=== PATIENT | female | born 1935 | race Hispanic/Latino ===

== ENCOUNTER 2017-08-06 20:12 | Emergency (ER) | payer OTHER ==
[2017-08-06] MEDS ORDERED: HYDROCODONE/APAP 5/325 MG TAB ONE (22:32)
--- NOTE | 2017-08-06 23:10 | EDPHYS ---
Physician Documentation [facility] Name: Diandra Shepard Age: 82 yrs Sex: Female : 1935 Arrival Date: 08/06/2017 Time: 20:17 Bed 11 Private MD: ED Physician Landry Carter HPI: 08/06 22:00 This 82 yrs old Female presents to ER via Ambulatory with complaints of Left pm1 shoulder pain. 22:00 The patient or guardian complains of decreased range of motion, pain. The complaints pm1 affect the left shoulder. Context: The problem was sustained at home, resulted from unknown cause. Onset: The symptoms/episode began/occurred this morning. Treatment prior to arrival includes: no previous treatment. Modifying factors: The symptoms are alleviated by nothing. the symptoms are aggravated by movement. Associated signs and symptoms: Pertinent positives: decreased range of motion, pain, Pertinent negatives: fever, numbness, swelling, tingling, Chest pain, shortness of breath. Severity of symptoms: in the emergency department the symptoms are unchanged. The patient has not experienced similar symptoms in the past. Historical: - Allergies: 20:46 No Known Allergies; lp1 - Home Meds: 20:46 Unable to obtain [Active]; lp1 - PMHx: 20:46 Hypertension; lp1 - PSHx: 20:46 Appendectomy; Cholecystectomy; lp1 - Immunization history:: Adult Immunizations up to date. - Social history:: Smoking status: Patient/guardian denies using tobacco. ROS: 22:00 Constitutional: Negative for fever, chills, and weight loss, Eyes: Negative for injury, pm1 pain, redness, and discharge, ENT: Negative for injury, pain, and discharge, Neck: Negative for injury, pain, and swelling, Cardiovascular: Negative for chest pain, palpitations, and edema, Respiratory: Negative for shortness of breath, cough, wheezing, and pleuritic chest pain, Abdomen/GI: Negative for abdominal pain, nausea, vomiting, diarrhea, and constipation, Back: Negative for injury and pain. 22:00 Skin: Negative for injury, rash, and discoloration, Neuro: Negative for headache, weakness, numbness, tingling, and seizure. 22:00 MS/extremity: Positive for decreased range of motion, pain, of the left shoulder, Negative for injury or acute deformity. Exam: 22:00 Constitutional: This is a well developed, well nourished patient who is awake, alert, pm1 and in no acute distress. Head/Face: Normocephalic, atraumatic. Neck: Trachea midline, no thyromegaly or masses palpated, and no cervical lymphadenopathy. Supple, full range of motion without nuchal rigidity, or vertebral point tenderness. No Meningismus. Chest/axilla: Normal chest wall appearance and motion. Nontender with no deformity. No lesions are appreciated. Cardiovascular: Regular rate and rhythm with a normal S1 and S2. No gallops, murmurs, or rubs. Normal PMI, no JVD. No pulse deficits. Respiratory: Lungs have equal breath sounds bilaterally, clear to auscultation and percussion. No rales, rhonchi or wheezes noted. No increased work of breathing, no retractions or nasal flaring. Abdomen/GI: Soft, non-tender, with normal bowel sounds. No distension or tympany. No guarding or rebound. No evidence of tenderness throughout. Back: No spinal tenderness. No costovertebral tenderness. Full range of motion. Skin: Warm, dry with normal turgor. Normal color with no rashes, no lesions, and no evidence of cellulitis. 22:00 Musculoskeletal/extremity: Extremities: grossly normal except: noted in the left shoulder: Patient with painful range of motion of left arm above shoulder level, Circulation is intact in all extremities. Sensation intact. Vital Signs: 20:45 BP 150 / 74; Pulse 66; Resp 18; Temp 97.3(TE); Pulse Ox 96% on R/A; Weight 82.1 kg; lp1 Height 4 ft. 11 in. (149.86 cm); Pain 9/10; 23:17 BP 133 / 74; Pulse 82; Resp 16; Pulse Ox 100% on R/A; Pain 0/10; bs1 20:45 Body Mass Index 36.56 (82.10 kg, 149.86 cm) lp1 MDM: 21:18 Patient medically screened. pm1 23:04 Data reviewed: vital signs. Data interpreted: Pulse oximetry: on room air is 98 %. pm1 Interpretation: normal. Counseling: I had a detailed discussion with the patient and/or guardian regarding: the historical points, exam findings, and any diagnostic results supporting the discharge/admit diagnosis, radiology results, the need for outpatient follow up, for definitive care, a orthopedic surgeon, to return to the emergency department if symptoms worsen or persist or if there are any questions or concerns that arise at home. 08/06 21:27 Order name: Shoulder Left (2 View) XRAY pm1 08/06 21:56 Order name: Sling; Complete Time: 22:42 pm1 Administered Medications: 22:42 Not Given (Patient Refused; SPOUT TENDER notified, no further orders): [place] 5 mg-325 mg 1 tabs bs1 PO once Disposition: 08/07 10:00 Co-signature as Attending Physician, Landry Carter MD. rn Disposition: 08/06/17 23:09 Discharged to Home. Impression: Pain in left shoulder - possibly bursitis of left shoulder. - Condition is Stable. - Discharge Instructions: Bursitis, Shoulder Pain, Arm Sling Use, [id number]. - Medication Reconciliation Form, Thank You Letter form. - Follow up: Emergency Department; When: As needed; Reason: Worsening of condition. Follow up: Private Physician; When: 2 - 3 days; Reason: Recheck today's complaints, Continuance of care, Re-evaluation by your physician. Follow up: Abraham Knight MD; When: 2 - 3 days; Reason: Recheck today's complaints, Continuance of care, Re-evaluation by your physician. - Problem is new. - Symptoms have improved. Signatures: Dispatcher [employer] EDMS Landry Carter MD MD rn Pena, Laura, RN RN lp1 Mukesh Yancey, SPOUT TENDER SPOUT TENDER pm1 Edna Larson, RN RN bs1
--- NOTE | 2017-08-06 23:10 | ER ---
Nurse's Notes [facility] Name: Diandra Shepard Age: 82 yrs Sex: Female : 1935 Arrival Date: 08/06/2017 Time: 20:17 Bed 11 Private MD: Diagnosis: Pain in left shoulder-possibly bursitis of left shoulder Presentation: 08/06 20:44 Presenting complaint: Patient states: Pain to left shoulder that began this AM, worse lp1 now; Denies any injury to left shoulder; limited ROM. Transition of care: patient was not received from another setting of care. Onset of symptoms was August 06, 2017. Care prior to arrival: None. 20:44 Method Of Arrival: Ambulatory lp1 20:44 Acuity: VANESSA 4 lp1 Historical: - Allergies: 20:46 No Known Allergies; lp1 - Home Meds: 20:46 Unable to obtain [Active]; lp1 - PMHx: 20:46 Hypertension; lp1 - PSHx: 20:46 Appendectomy; Cholecystectomy; lp1 - Immunization history:: Adult Immunizations up to date. - Social history:: Smoking status: Patient/guardian denies using tobacco. Screenin:47 Abuse screen: Denies threats or abuse. Denies injuries from another. Nutritional lp1 screening: No deficits noted. Tuberculosis screening: No symptoms or risk factors identified. Fall Risk None identified. Assessment: 21:36 General: Appears in no apparent distress. uncomfortable, Behavior is calm, cooperative, bs1 appropriate for age. Pain: Complains of pain in left shoulder Pain does not radiate. Pain currently is 0 out of 10 on a pain scale. Quality of pain is described as aching, throbbing, Pain began 2-3 days ago. Neuro: Level of Consciousness is awake, alert, obeys commands, Oriented to person, place, time, situation, Appropriate for age. Cardiovascular: Denies chest pain, palpitations, shortness of breath, Heart tones S1 S2 present Capillary refill < 3 seconds Patient's skin is warm and dry. Respiratory: Airway is patent Trachea midline Respiratory effort is even, unlabored, Respiratory pattern is regular, symmetrical, Breath sounds are clear bilaterally. GI: No deficits noted. : No deficits noted. EENT: No deficits noted. Derm: No deficits noted. Musculoskeletal: Circulation, motion, and sensation intact. Capillary refill < 3 seconds, Range of motion: limited in left shoulder Reports pain in left shoulder patient only reports pain upon movement, no pain noted at this time. no apparent distress. Patient denies falls or injury to affected arm. 22:43 Reassessment: No changes from previously documented assessment. Patient and/or family bs1 updated on plan of care and expected duration. Pain level reassessed. Patient is alert, oriented x 3, equal unlabored respirations, skin warm/dry/pink. Sling applied to left arm/shoulder. Vital Signs: 20:45 BP 150 / 74; Pulse 66; Resp 18; Temp 97.3(TE); Pulse Ox 96% on R/A; Weight 82.1 kg; lp1 Height 4 ft. 11 in. (149.86 cm); Pain 9/10; 23:17 BP 133 / 74; Pulse 82; Resp 16; Pulse Ox 100% on R/A; Pain 0/10; bs1 20:45 Body Mass Index 36.56 (82.10 kg, 149.86 cm) lp1 ED Course: 20:17 Patient arrived in ED. lp1 20:45 Triage completed. lp1 20:45 Arm band placed on right wrist. lp1 20:47 Patient has correct armband on for positive identification. lp1 21:13 Mukesh Yancey NP is PHCP. pm1 21:13 Landry Carter MD is Attending Physician. pm1 21:36 Edna Larson RN is Primary Nurse. bs1 21:45 X-ray completed. Portable x-ray completed in exam room. Patient tolerated procedure kc2 well. 22:43 No provider procedures requiring assistance completed. Patient did not have IV access bs1 during this emergency room visit. 23:07 Abraham Knight MD is Referral Physician. pm1 Administered Medications: 22:42 Not Given (Patient Refused; TOXICOLOGY TEACHER notified, no further orders): [place] 5 mg-325 mg 1 tabs bs1 PO once Outcome: 23:09 Discharge ordered by . pm1 23:18 Discharged to home ambulatory. bs1 23:18 Condition: stable 23:18 Discharge instructions given to patient, family, Instructed on discharge instructions, follow up and referral plans. Demonstrated understanding of instructions, follow-up care. 23:18 Patient left the ED. bs1 Signatures: Em Moran RN RN lp1 Mukesh Yancey NP TOXICOLOGY TEACHER pm1 Марина Hobbs kc2 Edna Larson RN RN bs1 Corrections: (The following items were deleted from the chart) 21:39 21:36 Musculoskeletal: Circulation, motion, and sensation intact. Capillary refill < 3 bs1 seconds, Range of motion: limited in left shoulder Reports pain in left shoulder patient only reports pain upon movement, no pain noted at this time. no apparent distress. bs1
[2017-08-06 23:22] VITALS: TEMP 97.3
[2017-08-06 23:31] VITALS: BP 133/74; O2SAT 100
--- NOTE | 2017-08-07 08:11 | RAD REPORT ---
EXAM DESCRIPTION: RAD - Shoulder Left 2 View - 08/06/2017 9:55 pm CLINICAL HISTORY: Onset nontraumatic left shoulder pain, decreased range of motion COMPARISON: None. TECHNIQUE: Internal and external rotation views of the left shoulder were obtained. FINDINGS: There is no fracture or dislocation. AC joint degenerative changes are present with small inferiorly directed clavicle and acromion spurs. Acromial humeral joint space is narrowed slightly. T here degenerative changes along the undersurface of the acromion. No abnormal calcifications of the s oft tissues. Degenerative changes are seen along the superior margin of the greater tuberosity near t endon insertion. Ribs and parenchyma of the upper chest unremarkable. IMPRESSION: Negative two-view left shoulder examination for acute finding. AC joint and acromion degenerative change. Concerns for rotator cuff tear or soft tissue abnormality can be addressed with MR imaging.
== END 2017-08-06 23:18 | disposition home or self-care (01) ==
LOC: ER 20:12
DX: M25.512 Pain in left shoulder (principal); I10 Essential (primary) hypertension; X58.XXXA Exposure to other specified factors, initial encounter; Y92.009 Unspecified place in unspecified non-institutional (private) residence as the place of occurrence of the external cause
CPT/HCPCS: 99281

== ENCOUNTER 2018-01-02 09:50 | Observation (INO) | payer OTHER ==
--- NOTE | 2018-01-02 10:44 | EKG ---
Test Date: 2018-01-02 Test Time: 10:28:27 Senior Information Security Analyst: GUTIERREZ/Tom MEASUREMENT RESULTS: Intervals: Rate: 50 DC: 172 QRSD: 96 QT: 448 QTc: 408 [place]: P: 35 DC: 172 QRS: -26 T: 132 INTERPRETIVE STATEMENTS: Sinus bradycardia with sinus arrhythmia ST & T wave abnormality, consider anterolateral ischemia Abnormal ECG Compared to ECG 09/14/2006 18:27:40 ST (T wave) deviation now present Sinus rhythm no longer present Left-axis deviation no longer present Electronically Signed On 01-02-18 10:43:27 CDT by Pramod Lundberg
[2018-01-02] MEDS ORDERED: ASPIRIN 81 MG CHEWABLE TABLET ONE (10:55)
[2018-01-02 11:03] LABS: Urine Blood 1+ (NEG); Urine Glucose NEGATIVE (NEG); Urine Protein NEGATIVE (NEG)
[2018-01-02 11:12] LABS: Absolute Lymphocytes (CBC) 2.1 K/uL (0.7-4.9); Absolute Monocytes 0.6 K/uL (0.1-1.3); Absolute Neutrophil 3.7 K/uL (1.8-8.0); Basophils % 0.6 % (0-1.3); Eosinophils % 2.4 % (0-4.4); Hematocrit 38.6 % (36.0-45.0); Lymphocytes % 31.8 % (15.3-44.8); MCH 30.4 pg (27.0-35.0); MPV 10.2 fL (7.6-11.3); Monocytes % 8.7 % (3.3-12.3); Protime INR 2.26; RBC Red Blood Cell Count 4.25 M/uL (3.86-4.86)
--- NOTE | 2018-01-02 11:30 | RAD REPORT ---
EXAM DESCRIPTION: RAD - Chest Single View - 01/02/2018 11:23 am CLINICAL HISTORY: CHEST PAIN Chest pain. COMPARISON: Chest Pa And Lat (2 Views) dated 04/10/2017; Thorax Wo Con dated 12/20/2017 FINDINGS: Portable technique limits examination quality. The lungs are grossly clear. The heart is mildly enlarged in size. No displaced fractures. IMPRESSION: No acute intrathoracic process suspected.
[2018-01-02 11:32] LABS: Albumin 3.7 g/dL (3.4-5.0); Bilirubin Direct 0.1 mg/dL (0-0.2); Bilirubin Total 0.5 mg/dL (0.2-1.0); Magnesium 2.1 mg/dL (1.8-2.4); Potassium 4.6 mmol/L (3.5-5.1); Protein, Total 7.8 g/dL (6.4-8.2)
--- NOTE | 2018-01-02 11:45 | ER ---
Nurse's Notes [facility] Name: Diandra Shepard Age: 82 yrs Sex: Female : 1935 Arrival Date: 01/02/2018 Time: 09:52 Bed 8 Private MD: Rikki Singh E Diagnosis: Chest pain, unspecified;Abnormal electrocardiogram [ECG] [EKG] Presentation: 01/02 10:01 Presenting complaint: Patient states: CP that started 0900, reports that the CP has sg gone away but now the left ear and jaw are still hurting described as pulling and tugging. Transition of care: patient was not received from another setting of care. Onset of symptoms was January 02, 2018. Risk Assessment: Do you want to hurt yourself or someone else? Patient reports no desire to harm self or others. Initial Sepsis Screen: Does the patient meet any 2 criteria? No. Patient's initial sepsis screen is negative. Does the patient have a suspected source of infection? No. Patient's initial sepsis screen is negative. Care prior to arrival: None. 10:01 Method Of Arrival: Ambulatory sg 10:01 Acuity: VANESSA 3 sg Historical: - Allergies: 10:04 Levaquin; sg 10:04 Tylenol; sg 10:04 Codeine; sg - PMHx: 10:04 Hypertension; sg - PSHx: 10:04 Appendectomy; Cholecystectomy; sg - Immunization history:: Adult Immunizations up to date. - Social history:: Smoking status: Patient/guardian denies using tobacco. - Ebola Screening: : No symptoms or risks identified at this time. Screenin:00 Abuse screen: Denies threats or abuse. Denies injuries from another. hb 10:00 Nutritional screening: No deficits noted. Tuberculosis screening: No symptoms or risk hb factors identified. Fall Risk None identified. Assessment: 10:00 General: Appears in no apparent distress. Behavior is calm, cooperative. Pain: hb Complains of pain in chest Pain radiates to left jaw and ear Pain currently is 3 out of 10 on a pain scale. Neuro: Level of Consciousness is awake, alert, obeys commands, Oriented to person, place, time, situation, Pupils are PERRLA. Cardiovascular: Reports chest pain, Heart tones S1 S2 present Capillary refill < 3 seconds Patient's skin is warm and dry. Respiratory: Airway is patent Trachea midline Respiratory effort is even, unlabored, Respiratory pattern is regular, symmetrical, Breath sounds are clear bilaterally. GI: No signs and/or symptoms were reported involving the gastrointestinal system. : No signs and/or symptoms were reported regarding the genitourinary system. EENT: Reports pain in left ear. Derm: Skin is intact, is healthy with good turgor, Skin is pink, warm \T\ dry. Musculoskeletal: No signs and/or symptoms reported regarding the musculoskeletal system. 11:00 Reassessment: Patient appears in no apparent distress at this time. No changes from hb previously documented assessment. Patient and/or family updated on plan of care and expected duration. Pain level reassessed. Patient is alert, oriented x 3, equal unlabored respirations, skin warm/dry/pink. Vital Signs: 10:02 Resp 17; Temp 98.1; Pulse Ox 100% on R/A; sg 10:03 BP 143 / 67; sg 11:01 BP 162 / 77; Pulse 51; Resp 16; Pulse Ox 100% on R/A; dh3 11:48 BP 125 / 52; Pulse 49; Resp 18; Pulse Ox 96% ; sv 12:59 BP 150 / 69; Pulse 53; Resp 18; sv ED Course: 09:52 Patient arrived in ED. sb2 09:53 Rikki Singh MD is Private Physician. sb2 09:59 Feng Echols PA is [facility]. jr8 09:59 Bridger Blanchard MD is Attending Physician. jr8 10:00 Patient has correct armband on for positive identification. Placed in gown. Bed in low hb position. Call light in reach. Side rails up X 1. monitoring and evaluation advisor on. Pulse ox on. NIBP on. 10:02 Triage completed. sg 10:02 Arm band placed on. sg 10:07 Shae Hall, KIAN is Primary Nurse. hb 10:47 EKG done, by senior technical recruiter. reviewed by Feng STALEY. at1 10:55 Inserted saline lock: 20 gauge in left antecubital area, using aseptic technique. Blood cc3 collected. 11:21 X-ray completed. Portable x-ray completed in exam room. Patient tolerated procedure jb2 well. 11:23 XRAY Chest (1 view) In Process Unspecified. EDMS 11:44 Leonor Patel MD is Hospitalizing Provider. jr8 13:06 No provider procedures requiring assistance completed. Patient admitted, IV remains in sv place. intact. Administered Medications: 10:56 Drug: Aspirin Chewable Tablet 324 mg Route: PO; hb Outcome: 11:44 Decision to Hospitalize by Provider. jr8 13:06 Admitted to Tele accompanied by tech, via wheelchair, room 206, with chart, Report sv called to Daria LANGSTON 13:06 Condition: stable 13:06 Instructed on the need for admit. 13:22 Patient left the ED. sv Signatures: Dispatcher [employer] Leola Foote, RN RN Rhys Maya RN RN Ameya Akbar Josh, PA PA jr8 Madhavi flynn, software design analyst EKG Tat1 Shae Hall RN RN Jeannette Kirkland 3 Ellie Keenan sb2 Sari Pro cc3
--- NOTE | 2018-01-02 11:45 | EDPHYS ---
Physician Documentation [facility] Name: Diandra Shepard Age: 82 yrs Sex: Female : 1935 Arrival Date: 01/02/2018 Time: 09:52 Bed 8 Private MD: Rikki Singh E ED Physician Bridger Blanchard HPI: 01/02 10:40 This 82 yrs old Female presents to ER via Ambulatory with complaints of Chest jr8 pain with radiation to jaw. 10:40 The patient or guardian reports chest pain that is located primarily in the anterior jr8 chest wall, left. Onset: acutely, last night. The pain radiates to left neck, left jaw. Associated signs and symptoms: The patient has no apparent associated signs or symptoms. The chest pain is described as stabbing. Duration: The patient or guardian reports a single episode, that is now resolved, lasted for several hours . Modifying factors: The symptoms are alleviated by nothing. the symptoms are aggravated by nothing. Severity of pain: At its worst the pain was moderate in the emergency department the pain is unchanged. The patient has not experienced similar symptoms in the past. The patient has not recently seen a physician. Historical: - Allergies: 10:04 Levaquin; sg 10:04 Tylenol; sg 10:04 Codeine; sg - PMHx: 10:04 Hypertension; sg - PSHx: 10:04 Appendectomy; Cholecystectomy; sg - Immunization history:: Adult Immunizations up to date. - Social history:: Smoking status: Patient/guardian denies using tobacco. - Ebola Screening: : No symptoms or risks identified at this time. ROS: 10:40 Eyes: Negative for injury, pain, redness, and discharge, ENT: Negative for injury, jr8 pain, and discharge, Neck: Negative for injury, pain, and swelling, Respiratory: Negative for shortness of breath, cough, wheezing, and pleuritic chest pain, Abdomen/GI: Negative for abdominal pain, nausea, vomiting, diarrhea, and constipation, Back: Negative for injury and pain, MS/Extremity: Negative for injury and deformity, Skin: Negative for injury, rash, and discoloration, Neuro: Negative for headache, weakness, numbness, tingling, and seizure. 10:40 Cardiovascular: Positive for chest pain, Negative for edema, orthopnea, palpitations, paroxysmal nocturnal dyspnea. Exam: 10:40 Eyes: Pupils equal round and reactive to light, extra-ocular motions intact. Lids and jr8 lashes normal. Conjunctiva and sclera are non-icteric and not injected. Cornea within normal limits. Periorbital areas with no swelling, redness, or edema. ENT: Nares patent. No nasal discharge, no septal abnormalities noted. Tympanic membranes are normal and external auditory canals are clear. Oropharynx with no redness, swelling, or masses, exudates, or evidence of obstruction, uvula midline. Mucous membranes moist. Neck: Trachea midline, no thyromegaly or masses palpated, and no cervical lymphadenopathy. Supple, full range of motion without nuchal rigidity, or vertebral point tenderness. No Meningismus. Cardiovascular: Regular rate and rhythm with a normal S1 and S2. No gallops, murmurs, or rubs. Normal PMI, no JVD. No pulse deficits. Respiratory: Lungs have equal breath sounds bilaterally, clear to auscultation and percussion. No rales, rhonchi or wheezes noted. No increased work of breathing, no retractions or nasal flaring. Abdomen/GI: Soft, non-tender, with normal bowel sounds. No distension or tympany. No guarding or rebound. No evidence of tenderness throughout. Back: No spinal tenderness. No costovertebral tenderness. Full range of motion. Skin: Warm, dry with normal turgor. Normal color with no rashes, no lesions, and no evidence of cellulitis. MS/ Extremity: Pulses equal, no cyanosis. Neurovascular intact. Full, normal range of motion. Neuro: Awake and alert, GCS 15, oriented to person, place, time, and situation. Cranial nerves II-XII grossly intact. Motor strength 5/5 in all extremities. Sensory grossly intact. Cerebellar exam normal. Normal gait. 11:46 ECG was reviewed by the Attending Physician. jr8 Vital Signs: 10:02 Resp 17; Temp 98.1; Pulse Ox 100% on R/A; sg 10:03 BP 143 / 67; sg 11:01 BP 162 / 77; Pulse 51; Resp 16; Pulse Ox 100% on R/A; dh3 11:48 BP 125 / 52; Pulse 49; Resp 18; Pulse Ox 96% ; sv 12:59 BP 150 / 69; Pulse 53; Resp 18; sv MDM: 10:19 Patient medically screened. jr8 11:43 HEART Score: ECG: Non specific repolarization disturbance / LBTB / PM (1), Age: > or = jr8 65 years (2), Risk Factors: 1 or 2 risk factors (1), [Hypertension] [Obesity] Troponin: < or = 1 x Normal Limit (0). The patient was given aspirin in the Emergency Department. Data reviewed: vital signs, nurses notes, lab test result(s), EKG, radiologic studies, plain films, and as a result, I will admit patient. Data interpreted: Pulse oximetry: on room air is 100 %. Interpretation: normal. Counseling: I had a detailed discussion with the patient and/or guardian regarding: the historical points, exam findings, and any diagnostic results supporting the discharge/admit diagnosis, lab results, radiology results, the need for further work-up and treatment in the hospital. Physician consultation: Leonor Patel MD was called at 11:43, was contacted at 11:43, regarding admission, to the telemetry unit. consult, patient's condition, and will see patient. 01/02 10:34 Order name: Basic Metabolic Panel; Complete Time: 11:36 01/02 10:34 Order name: CBC with Diff; Complete Time: 11:14 01/02 10:34 Order name: LFT's; Complete Time: 11:36 01/02 10:34 Order name: Magnesium; Complete Time: 11:36 01/02 10:34 Order name: NT PRO-BNP; Complete Time: 11:36 01/02 10:34 Order name: PT-INR; Complete Time: 11:13 01/02 10:34 Order name: Troponin (emerg Dept Use Only); Complete Time: 11:36 01/02 10:34 Order name: XRAY Chest (1 view); Complete Time: 11:36 01/02 10:34 Order name: EKG; Complete Time: 10:35 01/02 10:34 Order name: Cardiac monitoring; Complete Time: 12:10 01/02 10:34 Order name: EKG - Nurse/Tech; Complete Time: 12:10 01/02 10:51 Order name: Urine Dipstick--Ancillary (enter results); Complete Time: 11:05 mb4 01/02 12:12 Order name: Diet Heart Healthy; Complete Time: 12:12 hb 01/02 10:34 Order name: IV Saline Lock; Complete Time: 12:10 jr8 01/02 10:34 Order name: Labs collected and sent; Complete Time: 12:10 jr8 01/02 10:34 Order name: O2 Per Protocol; Complete Time: 12:10 jr8 01/02 10:34 Order name: O2 Sat Monitoring; Complete Time: 12:10 jr8 EC:46 Rate is 50 beats/min. Rhythm is regular, Sinus bradycardia. ME interval is normal at jr8 172 msec. QRS interval is normal at 96 msec. QT interval is normal at 408 msec. No Q waves. T waves are Inverted in leads I, aVL, V2, V3, V4, V5, V6. No ST changes noted. Clinical impression: NSR w/ Non-specific ST/T Changes. Interpreted by me. Reviewed by me. Administered Medications: 10:56 Drug: Aspirin Chewable Tablet 324 mg Route: PO; hb Disposition: 14:46 Co-signature as Attending Physician, Bridger Blanchard MD I agree with the assessment and kdr plan of care. Disposition: 01/02/18 11:44 Hospitalization ordered by Leonor Patel for Observation. Preliminary diagnosis are Chest pain, unspecified, Abnormal electrocardiogram [ECG] [EKG]. - Bed requested for Telemetry/MedSurg (observation). - Status is Observation. sv - Condition is Stable. - Problem is new. - Symptoms have improved. UTI on Admission? No Signatures: Dispatcher [employer] [facility] Leola Johnston RN RN sv Woody, Diana, RN RN Rhys Maya RN RN Bridger Blanchard MD MD [facility] Feng Echols PA PA jr8 Shae Hall, RN KIAN Corrections: (The following items were deleted from the chart) 11:44 11:44 Hospitalization Ordered by Leonor Patel MD for Observation. Preliminary jr8 diagnosis is Chest pain, unspecified. Bed requested for Telemetry/MedSurg (observation). Status is Observation. Condition is Stable. Problem is new. Symptoms have improved. UTI on Admission? No. jr8 12:58 11:44 01/02/2018 11:44 Hospitalization Ordered by Leonor Patel MD for Observation. dw Preliminary diagnosis is Chest pain, unspecified; Abnormal electrocardiogram [ECG] [EKG]. Bed requested for Telemetry/MedSurg (observation). Status is Observation. Condition is Stable. Problem is new. Symptoms have improved. UTI on Admission? No. jr8 13:22 12:58 01/02/2018 11:44 Hospitalization Ordered by Leonor Patel MD for Observation. sv Preliminary diagnosis is Chest pain, unspecified; Abnormal electrocardiogram [ECG] [EKG]. Bed requested for Telemetry/MedSurg (observation). Status is Observation. Condition is Stable. Problem is new. Symptoms have improved. UTI on Admission? No. dw
[2018-01-02] MEDS ORDERED: ACETAMINOPHEN 500 MG TAB PO PRN (14:00)
[2018-01-02] MEDS ORDERED: ONDANSETRON 4 MG/2 ML VIAL IV PRN (14:00)
[2018-01-02 14:06] VITALS: BMI 51.7
--- NOTE | 2018-01-02 15:26 | P.HP ---
Certification for Inpatient Patient admitted to: Observation With expected LOS: <2 Midnights Patient will require the following post-hospital care: None Practitioner: I am a practitioner with admitting privileges, knowledge of patient current condition, hospital course, and medical plan of care. Services: Services provided to patient in accordance with Admission requirements found in Title 42 Section 412.3 of the Code of Federal Regulations Patient History Date of Service: 01/02/18 Primary Care Provider: Dr Mooney - Cardiology Reason for admission: Chest pain History of Present Illness: 82 y/o F with h/o of HTN presented to the ED with Chest pain that started last night at 9 pm while she was laying down. Chest pain radiated down her left arm and she was also having some jaw pain. Pt thus decided to come to the ER. Pain is dull in nature and located on the left side. No SOB, N or vomitted noted. Has been seen by Dr Mooney outside. Has had Stress test in the past 2years ago and was negative. In the Er Troponin x 1 negative. EKG with no changes. Chest Pain free. Admitted to R/o ACS Allergies levofloxacin [From Levaquin] Allergy (Verified 07/16/17 10:29) unknown acetaminophen [From Tylenol-Codeine #3] Adverse Reaction (Verified 07/16/17 10: 29) bone pain codeine [From Tylenol-Codeine #3] Adverse Reaction (Verified 07/16/17 10:29) bone pain No Known Allergie Allergy (Uncoded 08/06/17 23:22) Unknown Home Medications: Albuterol Inhaler [Ventolin Inhaler] 2 puff IH Q6H PRN 01/02/18 Alprazolam [Xanax] 0.5 mg PO QID PRN 01/02/18 Atorvastatin Calcium 10 mg PO BEDTIME 01/02/18 Gabapentin [Neurontin] 100 mg PO BID 01/02/18 Isosorbide Mononitrate [Isosorbide Mononitrate ER] 30 mg PO BEDTIME 01/02/18 Lisinopril/Hydrochlorothiazide [Lisinopril-Hctz 20-12.5 mg Tab] 1 tab PO BID Meclizine HCl 12.5 mg PO DAILY PRN 01/02/18 Metoprolol Tartrate [Lopressor] 50 mg PO BID 01/02/18 - Past Medical/Surgical History Has patient received pneumonia vaccine in the past: Yes Diabetic: No -: High blood -: Cataract sx, LAsik Sx, - Social History Smoking Status: Never smoker Alcohol use: No CD- Drugs: No Caffeine use: Yes Place of Residence: Home Review of Systems General: As per HPI Physical Examination - Vital Signs Temperature: 98.1 F Blood Pressure: 150/69 Pulse: 53 Respirations: 18 - Physical Exam General: Alert, In no apparent distress HEENT: Atraumatic, PERRLA, Mucous membr. moist/pink, EOMI, Sclerae nonicteric Neck: Supple, 2+ carotid pulse no bruit, No LAD, Without JVD or thyroid abnormality Respiratory: Clear to auscultation bilaterally, Normal air movement Cardiovascular: Regular rate/rhythm, Normal S1 S2 Gastrointestinal: Normal bowel sounds, No tenderness Musculoskeletal: No tenderness Integumentary: No rashes Neurological: Normal gait, Normal speech, Normal strength at 5/5 x4 extr, Normal tone, Normal affect Lymphatics: No axilla or inguinal lymphadenopathy - Studies Laboratory Data (last 24 hrs) 01/02/18 10:55: PT 26.9 H, INR 2.26 01/02/18 10:55: WBC 6.6, Hgb 12.9, Hct 38.6, Plt Count 188 01/02/18 10:55: Sodium 142, Potassium 4.6, BUN 18, Creatinine 0.80, Glucose 121 H, Magnesium 2.1, Total Bilirubin 0.5, AST 24, ALT 31, Alkaline Phosphatase 51 Assessment and Plan - Problems (Diagnosis) (1) Chest pain Current Visit: Yes Status: Acute Plan: Atypical Chest Pain -Troponin x 2 and EKG -ECHO and Stress test tiburcio AM -Cardiology consulted. Awaiting Reccs -ACS medication Qualifiers: Chest pain type: unspecified Qualified Code(s): R07.9 - Chest pain, unspecified (2) HTN (hypertension) Current Visit: Yes Status: Chronic Plan: Restart Home medication Qualifiers: Hypertension type: essential hypertension Qualified Code(s): I10 - Essential (primary) hypertension Discharge Plan: Home Plan to discharge in: 24 Hours - Advance Directives Does patient have a Living Will: No Does patient have a Durable POA for Healthcare: No - Code Status/Comfort Care Code Status Assessed: Yes Critical Care: No
--- NOTE | 2018-01-02 15:43 | ECHO ---
HEIGHT: 4 ft 2 in WEIGHT: 184 lb 0 oz DATE OF STUDY: 01/02/[address]: Leonor Patel MD 2-DIMENSIONAL: YES M.MODE: YES DOPPLER: YES COLOR FLOW: YES TDS: NO PORTABLE: NO DEFINITY: NO BUBBLE STUDY: NO DIAGNOSIS: CHEST PAIN CARDIAC HISTORY: CATHERIZATION: NO SURGERY: NO PROSTHETIC VALVE: NO PACEMAKER: NO MEASUREMENTS (cm) DIASTOLIC (NORMALS) SYSTOLIC (NORMALS) IVSd 1.2 (0.6-1.2) LA Diam 3.6 (1.9-4.0) LVEF 78% LVIDd 4.3 (3.5-5.7) LVIDs 2.3 (2.0-3.5) %FS 47% LVPWd 1.2 (0.6-1.2) Ao Diam 3.1 (2.0-3.7) 2 DIMENSIONAL ASSESSMENT: RIGHT ATRIUM: NORMAL LEFT ATRIUM: NORMAL RIGHT VENTRICLE: NORMAL LEFT VENTRICLE: NORMAL TRICUSPID VALVE: NORMAL MITRAL VALVE: NORMAL PULMONIC VALVE: NORMAL AORTIC VALVE: NORMAL PERICARDIAL EFFUSION: NONE AORTIC ROOT: NORMAL LEFT VENTRICULAR WALL MOTION: NORMAL DOPPLER/COLOR FLOW: MILD TRICUSPID REGURGITATION. NORMAL RIGHT VENTRICULAR SYSTOLIC PRESSURE. COMMENTS: NORMAL 2D ECHOCARDIOGRAM. MILD TRICUSPID REGURGITATION. TECHNOLOGIST: Augustina HARRY
[2018-01-02] MEDS ORDERED: ENOXAPARIN 40 MG/0.4 ML SQ SCH (17:00)
--- NOTE | 2018-01-02 20:00 | RAD REPORT ---
EXAM DESCRIPTION: PHILIPPE - CP - 01/02/2018 7:43 pm CLINICAL HISTORY: Neck pain COMPARISON: None TECHNIQUE: Real-time sonographic evaluation of both carotid systems was performed. Doppler interroga tion was performed with waveform tracing bilaterally. FINDINGS: Normal high resistance waveforms are noted in both external carotid arteries. The common c arotid arteries and internal carotid arteries show normal low resistance waveforms. No finding suspic ious for carotid dissection. Moderate hard plaque is seen in both carotid bulbs. Mild elevation of left ICA velocity is 157 cm/sec ond with elevated left ICA to CCA ratio of 2.1 noted. This would be compatible with a moderate stenos is. No hemodynamically significant stenosis seen on the right. Antegrade flow seen in both vertebral arteries. IMPRESSION: Moderate hard plaque in both carotid bulbs. 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
[2018-01-02] MEDS ORDERED: ATORVASTATIN 40 MG TAB PO SCH (21:00)
--- NOTE | 2018-01-02 22:16 | CON ---
CARDIOLOGY CONSULT Identification: An 82-year-old woman. Chief Complaint: Pain in the left side of her neck. History Of Present Illness: Ms. Shepard is a woman who has had numerous evaluations for vascular di sease before including a cardiac cath in June 2017, that showed mild plaque, no significant CAD. No stents were done. Today, she has had an echocardiogram which shows normal ejection fraction and wall motion. The pain she has on the left side of the neck goes to a point in the jaw, it tends to c ome and go in waves, that lasts 5-10 seconds or so. She has never had a stroke or myocardial infarct ion. We do not have any carotid Dopplers done here or MRIs of the brain. Physical Examination: Vital Signs: 4 feet 2, 184 pounds, body mass index 51. HEENT: Unremarkable. Lungs: Clear. Heart: Within normal limits. There is no tenderness in the area that she reported pain. Her electr ocardiogram done today is sinus bradycardia; there is no infarction, injury, or ischemia. Laboratory Data: Reveals normal hemoglobin, hematocrit; normal complete blood count; normal cardiac enzymes. Impression: The patient could potentially have a dissection of the carotid, no physical findings to support that. We will do a carotid Doppler and if that looks normal, any other workup for the pain she is having could be done as an out patient. MARIO Voice ID: [id number] Report ID: [id number]
[2018-01-03 01:28] VITALS: O2SAT 97
[2018-01-03 05:21] LABS: Absolute Monocytes 0.6 K/uL (0.1-1.3); Absolute Neutrophil 3.3 K/uL (1.8-8.0); Basophils % 0.5 % (0-1.3); Eosinophils % 2.8 % (0-4.4); Hematocrit 37.6 % (36.0-45.0); MCH 30.8 pg (27.0-35.0); MCV 90.2 fL (80-100); MPV 10.4 fL (7.6-11.3); Monocytes % 9.3 % (3.3-12.3); RBC Red Blood Cell Count 4.17 M/uL (3.86-4.86)
[2018-01-03 05:58] LABS: Albumin 3.4 g/dL (3.4-5.0); Bilirubin Total 0.5 mg/dL (0.2-1.0); Phosphorus 3.8 mg/dL (2.5-4.9); Potassium 3.7 mmol/L (3.5-5.1); Protein, Total 7.2 g/dL (6.4-8.2)
[2018-01-03] MEDS ORDERED: METOPROLOL XL 25 MG TAB PO SCH (06:00)
[2018-01-03] MEDS ORDERED: REGADENOSON 0.4 MG/5 ML SYR IV ONE (08:04)
[2018-01-03] MEDS ORDERED: POTASSIUM 25 MEQ EFFERV TAB PO ONE (09:00)
[2018-01-03] MEDS ORDERED: ASPIRIN EC 81 MG TAB PO SCH (09:00)
[2018-01-03 09:12] VITALS: BP 160/74; TEMP 97.1
--- NOTE | 2018-01-03 10:06 | TREADPHA ---
DX: CHEST PAIN Date of Study: 01/03/2018 Ht: 4 2 Wt: 184 lb 0 oz Consulting Physician: ANDREEA MEDICATIONS: TYLENOL, ASPIRIN, LOVENOX, TOPROL, ZOFRAN, K-LYTE HISTORY: 82 YEAR OLD FEMALE HERE FOR CHEST PAIN. HISTORY OF HYEPRTENSION. PHYSICIAL EXAMINATION: SINUS BRADYCARDIA. NON-SPECIFIC ST & T WAVE ABNORMALITY RESTING B.P.: 124/68 RESTING H.R.: 56 RESTING EKG: SINUS BRADYCARDIA. NON-SPECIFIC ST & T WAVE ABNORMALITY PROTOCOL: LEXISCAN EXERCISE TIME: 3:30 B.P. AT [place] STRESS: 140/68 IMPRESSION: LEXISCAN STRESS TEST PERFORMED. CARDIOLITE INJECTED PER PROTOCOL. NO PREMATURE VENTRICULAR COMPLEXES NOTED. DENIES ANY CHEST PAIN. SEE NUCLEAR MEDICINE REPORT. NON-DIAGNOSTIC ELECTOCARDIOGRAM WITH LEXISCAN STRESS.
--- NOTE | 2018-01-03 10:37 | RAD REPORT ---
EXAM DESCRIPTION: NM - Rest Stress Cardiac Imaging - 01/03/2018 10:27 am CLINICAL HISTORY: Chest pain COMPARISON: None. TECHNIQUE: The patient was administered 10.8 mCi of Tc 99m Sestamibi prior to resting SPECT imaging of the heart. The patient was then administered 31.9 mCi of Tc 99m Sestamibi following exercise or ph armacologic stress. Multiplanar SPECT images were reviewed. FINDINGS: The end diastolic volume is 71 ml, the end systolic volume is 23 ml, and the ejection frac tion is 68 %. No definitive stress ischemia identifiable. Small area of minimally diminished activity along the ant eroseptal wall near the apex is believed to be breast attenuation artifact rather than scarring or is chemia. No definitive scarring. IMPRESSION: No stress-induced ischemia suspected. Small area of minimally diminished activity along the anteroseptal wall is favored to be attenuation artifact rather than ischemia. Ventricular volumes and ejection fraction are normal range.
--- NOTE | 2018-01-03 13:51 | P.SSS ---
Patient History Date of Service: 01/03/18 Primary Care Provider: Dr Mooney - Cardiology Reason for admission: Chest pain History of Present Illness: 82 y/o F with h/o of HTN presented to the ED with Chest pain that started last night at 9 pm while she was laying down. Chest pain radiated down her left arm and she was also having some jaw pain. Pt thus decided to come to the ER. Pain is dull in nature and located on the left side. No SOB, N or vomitted noted. Has been seen by Dr Mooney outside. Has had Stress test in the past 2years ago and was negative. In the Er Troponin x 1 negative. EKG with no changes. Chest Pain free. Admitted to R/o ACS Allergies levofloxacin [From Levaquin] Allergy (Verified 07/16/17 10:29) unknown acetaminophen [From Tylenol-Codeine #3] Adverse Reaction (Verified 07/16/17 10: 29) bone pain codeine [From Tylenol-Codeine #3] Adverse Reaction (Verified 07/16/17 10:29) bone pain No Known Allergie Allergy (Uncoded 08/06/17 23:22) Unknown Home Medications: Albuterol Inhaler [Ventolin Inhaler*] 2 puff IH Q6H PRN 01/02/18 Alprazolam [Xanax] 0.5 mg PO QID PRN 01/02/18 Atorvastatin Calcium 10 mg PO BEDTIME 01/02/18 Gabapentin [Neurontin*] 100 mg PO BID 01/02/18 Isosorbide Mononitrate [Isosorbide Mononitrate ER] 30 mg PO BEDTIME 01/02/18 Lisinopril/Hydrochlorothiazide [Lisinopril-Hctz 20-12.5 mg Tab] 1 tab PO BID Meclizine HCl 12.5 mg PO DAILY PRN 01/02/18 Metoprolol Tartrate [Lopressor*] 50 mg PO BID 01/02/18 - Past Medical/Surgical History Has patient received pneumonia vaccine in the past: Yes Diabetic: No -: High blood -: Cataract sx, LAsik Sx, - Social History Smoking Status: Never smoker Alcohol use: No CD- Drugs: No Caffeine use: Yes Place of Residence: Home Review of Systems General: As per HPI Physical Examination - Vital Signs Temperature: 97.1 F Blood Pressure: 160/74 Pulse: 55 Respirations: 18 Pulse Ox (%): 96 - Physical Exam General: Alert, In no apparent distress HEENT: Atraumatic, PERRLA, Mucous membr. moist/pink, EOMI, Sclerae nonicteric Neck: Supple, 2+ carotid pulse no bruit, No LAD, Without JVD or thyroid abnormality Respiratory: Clear to auscultation bilaterally, Normal air movement Cardiovascular: Regular rate/rhythm, Normal S1 S2 Gastrointestinal: Normal bowel sounds, No tenderness Musculoskeletal: No tenderness Integumentary: No rashes Neurological: Normal gait, Normal speech, Normal strength at 5/5 x4 extr, Normal tone, Normal affect Lymphatics: No axilla or inguinal lymphadenopathy - Diagnosis (Problem(s)) (1) Chest pain Onset Date: 01/03/18 Current Visit: Yes Status: Acute Plan: Atypical Chest Pain -Troponin x 2 and EKG WNL -ECHO and Stress test Negative -Cardiology consulted. -ACS medication Qualifiers: Chest pain type: unspecified Qualified Code(s): R07.9 - Chest pain, unspecified (2) HTN (hypertension) Onset Date: 01/03/18 Current Visit: Yes Status: Chronic Qualifiers: Hypertension type: essential hypertension Qualified Code(s): I10 - Essential (primary) hypertension Treatment Summary: Overall during the hospital stay patient remained stable The patient was initially admitted to the hospital for chest pain. Cardiology was consulted to rule out ACS. Cardiology recommended get a carotid Doppler to rule out dissection. Carotid Doppler was done which was consistent with 50% stenosis bilaterally. Patient had an echocardiogram and stress test done here is well which was negative for any acute ischemia. 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 Patient did not have any complications while here in the hospital and then was discharged home under stable condition. - Disposition Disposition: ROUTINE DISCHARGE Condition: GOOD Patient Discharge Instructions: Please f.u with PCP and Cardiology in 1 to 2 week post discharge. No New medication. stress test and ECHO negatibe. Carotid Doppler with 50% stenosis which will be f.u by your Steam Finisher Diet: Regular Activity: Ad ching
== END 2018-01-03 16:02 | disposition home or self-care (01) ==
LOC: ER 09:50 → ERHOLD 12:09 → 2ND 13:06
PROVIDERS: ADMIT Family Medicine; ATTEND Family Medicine
DX: R07.89 Other chest pain (principal); I10 Essential (primary) hypertension
CPT/HCPCS: 36415; 71045; 78452; 80048; 80053; 80076; 81003; 83735 ×2; 83880; 84100; 84484 ×4; 85025 ×2; 85610; 93005; 93017; 93306; 93880; 99285; A9500; G0378 ×2; J1650; J2785

== ENCOUNTER 2018-04-03 19:28 | Emergency (ER) | payer OTHER ==
--- NOTE | 2018-04-04 00:17 | ER ---
Nurse's Notes [facility] Name: Diandra Shepard Age: 82 yrs Sex: Female : 1935 Arrival Date: 04/03/2018 Time: 19:30 Bed 24 Private MD: Rikki Singh E Diagnosis: Essential (primary) hypertension Presentation: 04/03 19:39 Presenting complaint: Patient states: High blood pressure readings at home today. aj Transition of care: patient was not received from another setting of care. Onset of symptoms was April 03, 2018. Risk Assessment: Do you want to hurt yourself or someone else? Patient reports no desire to harm self or others. Initial Sepsis Screen: Does the patient meet any 2 criteria? No. Patient's initial sepsis screen is negative. Does the patient have a suspected source of infection? No. Patient's initial sepsis screen is negative. Care prior to arrival: None. 19:39 Method Of Arrival: Ambulatory aj 19:39 Acuity: VANESSA 3 aj Triage Assessment: 19:42 General: Appears in no apparent distress. comfortable, Behavior is calm, cooperative, aj appropriate for age. Pain: Denies pain. Neuro: Level of Consciousness is awake, alert, obeys commands, Oriented to person, place, time, situation, Appropriate for age. Respiratory: Airway is patent Respiratory effort is even, unlabored, Respiratory pattern is regular, symmetrical. Derm: Skin is intact, is healthy with good turgor, Skin is pink, warm \T\ dry. normal. Historical: - Allergies: 19:42 Codeine; aj 19:42 Levaquin; aj 19:42 Tylenol; aj - Home Meds: 19:42 Xarelto 20 mg oral tab 1 tab once daily [Active]; metoprolol tartrate 50 mg Oral tab 1 aj tab 2 times per day [Active]; atorvastatin 10 mg oral tab 1 tab once daily [Active]; nitroglycerin 0.4 mg SL subl 1 tab [Active]; famotidine 20 mg Oral tab 1 tab once daily [Active]; - PMHx: 19:42 Hypertension; Hyperlipidemia; aj - PSHx: 19:42 Appendectomy; Cholecystectomy; aj - Immunization history:: Adult Immunizations up to date. - Social history:: Smoking status: Patient/guardian denies using tobacco. - Ebola Screening: : Patient negative for fever greater than or equal to 101.5 degrees Fahrenheit, and additional compatible Ebola Virus Disease symptoms Patient denies exposure to infectious person Patient denies travel to an Ebola-affected area in the 21 days before illness onset No symptoms or risks identified at this time. Screenin:58 Abuse screen: Denies threats or abuse. Nutritional screening: No deficits noted. tl3 Tuberculosis screening: No symptoms or risk factors identified. Fall Risk None identified. Assessment: 22:58 General: Appears uncomfortable, well groomed, well developed, well nourished, Behavior tl3 is calm, cooperative, appropriate for age. Neuro: Level of Consciousness is awake, alert, obeys commands, Oriented to person, place, time, situation, Appropriate for age. Cardiovascular: Patient's skin is warm and dry. Cardiovascular: Reports high blood pressure. Respiratory: Airway is patent Respiratory effort is even, unlabored, Respiratory pattern is regular, symmetrical. GI: No signs and/or symptoms were reported involving the gastrointestinal system. : No signs and/or symptoms were reported regarding the genitourinary system. EENT: No signs and/or symptoms were reported regarding the EENT system. Derm: No signs and/or symptoms reported regarding the dermatologic system. Musculoskeletal: No signs and/or symptoms reported regarding the musculoskeletal system. 04/04 00:35 Reassessment: No changes from previously documented assessment. Patient and/or family tl3 updated on plan of care and expected duration. Pain level reassessed. Patient is alert, oriented x 3, equal unlabored respirations, skin warm/dry/pink. Vital Signs: 04/03 19:42 BP 186 / 76; Pulse 59; Resp 18; Temp 98.3; Pulse Ox 96% on R/A; Weight 83.46 kg; Height aj 5 ft. 0 in. (152.40 cm); 22:58 BP 135 / 72; Pulse 62; Resp 18; Temp 97.8; Pulse Ox 96% ; tl3 04/04 00:35 BP 143 / 76; Pulse 60; Resp 18; Pulse Ox 96% on R/A; tl3 04/03 19:42 Body Mass Index 35.93 (83.46 kg, 152.40 cm) ED Course: 04/03 19:30 Patient arrived in ED. mr 19:30 Rikki Singh MD is Private Physician. mr 19:39 Triage completed. aj 19:42 Arm band placed on left wrist. Patient placed in waiting room, Patient notified of wait aj time. 22:57 Juli Rod, RN is Primary Nurse. tl3 22:58 Patient has correct armband on for positive identification. Bed in low position. tl3 22:58 No provider procedures requiring assistance completed. tl3 23:05 Dio Espino MD is Attending Physician. 04/04 00:35 Patient did not have IV access during this emergency room visit. tl3 Administered Medications: No medications were administered Outcome: 00:16 Discharge ordered by . 00:35 Discharged to home ambulatory. tl3 00:35 Condition: stable 00:35 Discharge instructions given to patient, family, Instructed on discharge instructions, follow up and referral plans. Demonstrated understanding of instructions, follow-up care, medications. 00:37 Patient left the ED. tl3 Signatures: Madhavi Antonio, RN RN ngozi OsorioaHeather mr Dio Espino MD MD Juli Rod, RN RN tl3
--- NOTE | 2018-04-04 00:38 | EDPHYS ---
Physician Documentation [facility] Name: Diandra Shepard Age: 82 yrs Sex: Female : 1935 Arrival Date: 04/03/2018 Time: 19:30 Bed 24 Private MD: Rikki Singh E ED Physician Dio Espino HPI: 04/04 00:36 This 82 yrs old Female presents to ER via Ambulatory with complaints of High gs Blood Pressure. 00:36 The patient has elevated blood pressure and discovered this at home. Onset: The gs symptoms/episode began/occurred acutely, at 22:00. Modifying factors: The symptoms are aggravated by nothing. Associated signs and symptoms: Pertinent positives: headache, mild(poco), Pertinent negatives: chest pain, dizziness, dyspnea, vomiting. Severity of symptoms: At its worst the blood pressure was severe, in the emergency department the blood pressure is improved, markedly. The patient has experienced similar episodes in the past, a few times. Historical: - Allergies: 04/03 19:42 Codeine; aj 19:42 Levaquin; aj 19:42 Tylenol; aj - Home Meds: 19:42 Xarelto 20 mg oral tab 1 tab once daily [Active]; metoprolol tartrate 50 mg Oral tab 1 aj tab 2 times per day [Active]; atorvastatin 10 mg oral tab 1 tab once daily [Active]; nitroglycerin 0.4 mg SL subl 1 tab [Active]; famotidine 20 mg Oral tab 1 tab once daily [Active]; - PMHx: 19:42 Hypertension; Hyperlipidemia; aj - PSHx: 19:42 Appendectomy; Cholecystectomy; aj - Immunization history:: Adult Immunizations up to date. - Social history:: Smoking status: Patient/guardian denies using tobacco. - Ebola Screening: : Patient negative for fever greater than or equal to 101.5 degrees Fahrenheit, and additional compatible Ebola Virus Disease symptoms Patient denies exposure to infectious person Patient denies travel to an Ebola-affected area in the 21 days before illness onset No symptoms or risks identified at this time. ROS: 04/04 00:36 All other systems are negative. gs Exam: 00:36 Head/Face: Normocephalic, atraumatic. Eyes: Pupils equal round and reactive to light, gs extra-ocular motions intact. Lids and lashes normal. Conjunctiva and sclera are non-icteric and not injected. Cornea within normal limits. Periorbital areas with no swelling, redness, or edema. ENT: Nares patent. No nasal discharge, no septal abnormalities noted. Tympanic membranes are normal and external auditory canals are clear. Oropharynx with no redness, swelling, or masses, exudates, or evidence of obstruction, uvula midline. Mucous membranes moist. Neck: Trachea midline, no thyromegaly or masses palpated, and no cervical lymphadenopathy. Supple, full range of motion without nuchal rigidity, or vertebral point tenderness. No Meningismus. Chest/axilla: Normal chest wall appearance and motion. Nontender with no deformity. No lesions are appreciated. Cardiovascular: Regular rate and rhythm with a normal S1 and S2. No gallops, murmurs, or rubs. Normal PMI, no JVD. No pulse deficits. Respiratory: Lungs have equal breath sounds bilaterally, clear to auscultation and percussion. No rales, rhonchi or wheezes noted. No increased work of breathing, no retractions or nasal flaring. Abdomen/GI: Soft, non-tender, with normal bowel sounds. No distension or tympany. No guarding or rebound. No evidence of tenderness throughout. Back: No spinal tenderness. No costovertebral tenderness. Full range of motion. Skin: Warm, dry with normal turgor. Normal color with no rashes, no lesions, and no evidence of cellulitis. MS/ Extremity: Pulses equal, no cyanosis. Neurovascular intact. Full, normal range of motion. Neuro: Awake and alert, GCS 15, oriented to person, place, time, and situation. Cranial nerves II-XII grossly intact. Motor strength 5/5 in all extremities. Sensory grossly intact. Cerebellar exam normal. Normal gait. 00:36 Constitutional: The patient appears alert, awake. Vital Signs: 04/03 19:42 BP 186 / 76; Pulse 59; Resp 18; Temp 98.3; Pulse Ox 96% on R/A; Weight 83.46 kg; Height aj 5 ft. 0 in. (152.40 cm); 22:58 BP 135 / 72; Pulse 62; Resp 18; Temp 97.8; Pulse Ox 96% ; tl3 04/04 00:35 BP 143 / 76; Pulse 60; Resp 18; Pulse Ox 96% on R/A; tl3 04/03 19:42 Body Mass Index 35.93 (83.46 kg, 152.40 cm) aj MDM: 00:13 Patient medically screened. gs 00:36 Differential diagnosis: hypertensive crisis, Malignant HTN. Data reviewed: vital signs, nurses notes. Counseling: I had a detailed discussion with the patient and/or guardian regarding: the historical points, exam findings, and any diagnostic results supporting the discharge/admit diagnosis. Counseling: I had a detailed discussion with the patient and/or guardian regarding: the presence of at least one elevated blood pressure reading (>120/80) during this emergency department visit. Response to treatment: the patient's symptoms have markedly improved after treatment. Response to treatment: and as a result, I will discharge patient. Administered Medications: No medications were administered Disposition: 04/04/18 00:16 Discharged to Home. Impression: Essential (primary) hypertension. - Condition is Stable. - Discharge Instructions: Hypertension, Managing Your Hypertension. - Medication Reconciliation Form, Thank You Letter, Antibiotic Education, Prescription Opioid Use form. - Follow up: Private Physician; When: 1 - 2 days; Reason: Re-evaluation by your physician. - Problem is an acute exacerbation. - Symptoms are resolved. Signatures: Madhavi Antonio RN RN Dio Espino MD MD Juli Rod RN RN tl3 Corrections: (The following items were deleted from the chart) 00:37 00:16 04/04/2018 00:16 Discharged to Home. Impression: Essential (primary) tl3 hypertension. Condition is Stable. Forms are Medication Reconciliation Form, Thank You Letter, Antibiotic Education, Prescription Opioid Use. Follow up: Private Physician; When: 1 - 2 days; Reason: Re-evaluation by your physician. Problem is an acute exacerbation. Symptoms are resolved. gs
[2018-04-04 03:02] VITALS: O2SAT 96
[2018-04-04 03:03] VITALS: TEMP 97.8
[2018-04-04 03:04] VITALS: BP 143/76
== END 2018-04-04 00:37 | disposition home or self-care (01) ==
LOC: ER 19:28
DX: I10 Essential (primary) hypertension (principal); E78.5 Hyperlipidemia, unspecified; Z79.01 Long term (current) use of anticoagulants; Z88.1 Allergy status to other antibiotic agents; Z88.5 Allergy status to narcotic agent; Z88.6 Allergy status to analgesic agent
CPT/HCPCS: 99281

== ENCOUNTER 2019-03-03 16:42 | Emergency (ER) | payer OTHER ==
--- NOTE | 2019-03-03 18:14 | EDPHYS ---
Physician Documentation [facility] Name: Diandra Shepard Age: 83 yrs Sex: Female : 1935 Arrival Date: 03/03/2019 Time: 16:43 Bed 30 Private MD: ED Physician Brinda Grubbs HPI: 03/03 18:06 This 83 yrs old Female presents to ER via Ambulatory with complaints of High ma2 Blood Pressure. 18:06 The patient has elevated blood pressure and discovered this at home. Onset: The ma2 symptoms/episode began/occurred gradually, 1 day(s) ago. Associated signs and symptoms: Pertinent negatives: dizziness, headache, nausea, vomiting. Severity of symptoms: At its worst the blood pressure was mild. The patient has not experienced similar symptoms in the past. bp 150/100 a home no symptoms just bought a new bp machine . Historical: - Allergies: 16:58 Codeine; ss 16:58 Levaquin; ss 16:58 Tylenol; ss - Home Meds: 16:58 Xarelto 20 mg oral tab 1 tab once daily [Active]; gabapentin 100 mg oral cap 1 caps ss twice a day [Active]; isosorbide mononitrate 30 mg Oral Tb24 1 tab once daily [Active]; alprazolam 0.25 mg Oral TbDL 1 tab 3 times per day [Active]; atorvastatin 10 mg oral tab 1 tab once daily [Active]; lisinopril-hydrochlorothiazide 20-12.5 mg oral tab 1 tab once daily [Active]; metoprolol tartrate 50 mg Oral tab 1 tab 2 times per day [Active]; metoprolol tartrate 50 mg Oral tab 1 tab 2 times per day [Active]; Xarelto 20 mg Oral tab 1 tab once daily [Active]; atorvastatin 10 mg Oral tab 1 tab once daily [Active]; - PMHx: 16:58 Hyperlipidemia; Hypertension; ss - Immunization history:: Adult Immunizations up to date. - Social history:: Smoking status: Patient/guardian denies using tobacco, Patient/guardian denies using alcohol, street drugs, The patient lives with family, with spouse. - Ebola Screening: : No symptoms or risks identified at this time. - Family history:: not pertinent. ROS: 18:06 Constitutional: Negative for fever, chills, and weight loss. ma2 18:06 All other systems are negative. Exam: 18:06 Constitutional: This is a well developed, well nourished patient who is awake, alert, ma2 and in no acute distress. Head/Face: Normocephalic, atraumatic. Eyes: Pupils equal round and reactive to light, extra-ocular motions intact. Lids and lashes normal. Conjunctiva and sclera are non-icteric and not injected. Cornea within normal limits. Periorbital areas with no swelling, redness, or edema. ENT: Nares patent. No nasal discharge, no septal abnormalities noted. Tympanic membranes are normal and external auditory canals are clear. Oropharynx with no redness, swelling, or masses, exudates, or evidence of obstruction, uvula midline. Mucous membranes moist. Neck: Trachea midline, no thyromegaly or masses palpated, and no cervical lymphadenopathy. Supple, full range of motion without nuchal rigidity, or vertebral point tenderness. No Meningismus. Chest/axilla: Normal chest wall appearance and motion. Nontender with no deformity. No lesions are appreciated. Cardiovascular: Regular rate and rhythm with a normal S1 and S2. No gallops, murmurs, or rubs. Normal PMI, no JVD. No pulse deficits. Respiratory: Lungs have equal breath sounds bilaterally, clear to auscultation and percussion. No rales, rhonchi or wheezes noted. No increased work of breathing, no retractions or nasal flaring. Abdomen/GI: Soft, non-tender, with normal bowel sounds. No distension or tympany. No guarding or rebound. No evidence of tenderness throughout. Back: No spinal tenderness. No costovertebral tenderness. Full range of motion. Skin: Warm, dry with normal turgor. Normal color with no rashes, no lesions, and no evidence of cellulitis. MS/ Extremity: Pulses equal, no cyanosis. Neurovascular intact. Full, normal range of motion. Neuro: Awake and alert, GCS 15, oriented to person, place, time, and situation. Cranial nerves II-XII grossly intact. Motor strength 5/5 in all extremities. Sensory grossly intact. Cerebellar exam normal. Normal gait. Vital Signs: 16:58 BP 150 / 75; Pulse 70; Resp 20; Temp 97.4; Pulse Ox 97% ; Weight 79.38 kg; ss 17:35 BP 121 / 66; Pulse 63; Resp 17 S; Pulse Ox 97% on R/A; ca1 18:16 BP 136 / 72; Pulse 67; Resp 17 S; Pulse Ox 98% on R/A; ca1 MDM: 17:11 Patient medically screened. ma2 18:06 Differential diagnosis: hypertensive crisis, essential asymptomatic htn. Data reviewed: ma2 vital signs, nurses notes. Counseling: I had a detailed discussion with the patient and/or guardian regarding: the historical points, exam findings, and any diagnostic results supporting the discharge/admit diagnosis, the presence of at least one elevated blood pressure reading (>120/80) during this emergency department visit, the need for outpatient follow up. 03/03 17:54 Order name: EKG Electrocardiogram; Complete Time: 18:08 EDMS Administered Medications: No medications were administered Disposition: 03/03/19 18:13 Discharged to Home. Impression: Essential (primary) hypertension. - Condition is Stable. - Discharge Instructions: Hypertension. - Medication Reconciliation Form, Thank You Letter, Antibiotic Education, Prescription Opioid Use form. - Follow up: Private Physician; When: Tomorrow; Reason: Continuance of care. Signatures: Dispatcher [employer] EDMS Joan De La Vega RN RN Brinda Grubbs MD MD [facility] Shannan Smith RN RN ca1 Corrections: (The following items were deleted from the chart) 18:22 18:13 03/03/2019 18:13 Discharged to Home. Impression: Essential (primary) ca1 hypertension. Condition is Stable. Forms are Medication Reconciliation Form, Thank You Letter, Antibiotic Education, Prescription Opioid Use. Follow up: Private Physician; When: Tomorrow; Reason: Continuance of care. ma2
--- NOTE | 2019-03-03 18:14 | ER ---
Nurse's Notes [facility] Name: Diandra Shepard Age: 83 yrs Sex: Female : 1935 Arrival Date: 03/03/2019 Time: 16:43 Bed 30 Private MD: Diagnosis: Essential (primary) hypertension Presentation: 03/03 16:59 Presenting complaint: Patient states: HIGH BP WITH HEADACHE. Transition of care: ss patient was not received from another setting of care. Onset of symptoms is unknown. Risk Assessment: Do you want to hurt yourself or someone else? Patient reports no desire to harm self or others. Initial Sepsis Screen: Does the patient meet any 2 criteria? No. Patient's initial sepsis screen is negative. Does the patient have a suspected source of infection? No. Patient's initial sepsis screen is negative. Care prior to arrival: None. 16:59 Method Of Arrival: Ambulatory ss 16:59 Acuity: VANESSA 3 ss Historical: - Allergies: 16:58 Codeine; ss 16:58 Levaquin; ss 16:58 Tylenol; ss - Home Meds: 16:58 Xarelto 20 mg oral tab 1 tab once daily [Active]; gabapentin 100 mg oral cap 1 caps ss twice a day [Active]; isosorbide mononitrate 30 mg Oral Tb24 1 tab once daily [Active]; alprazolam 0.25 mg Oral TbDL 1 tab 3 times per day [Active]; atorvastatin 10 mg oral tab 1 tab once daily [Active]; lisinopril-hydrochlorothiazide 20-12.5 mg oral tab 1 tab once daily [Active]; metoprolol tartrate 50 mg Oral tab 1 tab 2 times per day [Active]; metoprolol tartrate 50 mg Oral tab 1 tab 2 times per day [Active]; Xarelto 20 mg Oral tab 1 tab once daily [Active]; atorvastatin 10 mg Oral tab 1 tab once daily [Active]; - PMHx: 16:58 Hyperlipidemia; Hypertension; ss - Immunization history:: Adult Immunizations up to date. - Social history:: Smoking status: Patient/guardian denies using tobacco, Patient/guardian denies using alcohol, street drugs, The patient lives with family, with spouse. - Ebola Screening: : No symptoms or risks identified at this time. - Family history:: not pertinent. Screenin:06 Abuse screen: Denies threats or abuse. Denies injuries from another. Nutritional ca1 screening: No deficits noted. Tuberculosis screening: No symptoms or risk factors identified. Fall Risk IV access (20 points). Assessment: 17:06 General: Appears in no apparent distress. comfortable, Behavior is calm, cooperative, ca1 appropriate for age. Pain: Denies pain. Neuro: Level of Consciousness is awake, alert, obeys commands, Oriented to person, place, time, situation. Neuro: Reports dizziness. Cardiovascular: Heart tones S1 S2 present Capillary refill < 3 seconds Patient's skin is warm and dry. Pulses are all present. Respiratory: Airway is patent Respiratory effort is even, unlabored, Respiratory pattern is regular, symmetrical, Breath sounds are clear bilaterally. GI: Abdomen is round non-distended, Bowel sounds present X 4 quads. Abd is soft and non tender X 4 quads. Patient currently denies nausea, vomiting. : No deficits noted. No signs and/or symptoms were reported regarding the genitourinary system. EENT: No deficits noted. No signs and/or symptoms were reported regarding the EENT system. Derm: Skin is intact, is healthy with good turgor, Skin is pink, warm \T\ dry. Musculoskeletal: Circulation, motion, and sensation intact. Capillary refill < 3 seconds, Range of motion: intact in all extremities. 17:58 Reassessment: Patient appears in no apparent distress at this time. Patient and/or ca1 family updated on plan of care and expected duration. Pain level reassessed. Patient is alert, oriented x 3, equal unlabored respirations, skin warm/dry/pink. 18:16 Reassessment: Patient appears in no apparent distress at this time. Patient is alert, ca1 oriented x 3, equal unlabored respirations, skin warm/dry/pink. Vital Signs: 16:58 BP 150 / 75; Pulse 70; Resp 20; Temp 97.4; Pulse Ox 97% ; Weight 79.38 kg; ss 17:35 BP 121 / 66; Pulse 63; Resp 17 S; Pulse Ox 97% on R/A; ca1 18:16 BP 136 / 72; Pulse 67; Resp 17 S; Pulse Ox 98% on R/A; ca1 ED Course: 16:43 Patient arrived in ED. as 16:58 Arm band placed on. ss 17:00 Triage completed. ss 17:01 Shannan Smith, RN is Primary Nurse. ca1 17:06 Patient has correct armband on for positive identification. Bed in low position. Call ca1 light in reach. Side rails up X 1. Pulse ox on. NIBP on. Warm blanket given. 17:06 No provider procedures requiring assistance completed. ca1 17:11 Brinda Grubbs MD is Attending Physician. ma2 17:42 EKG done, by semiconductor equipment technician. reviewed by Brinda Grubbs MD. 3 18:21 Patient did not have IV access during this emergency room visit. ca1 Administered Medications: No medications were administered Outcome: 18:13 Discharge ordered by . [facility] 18:21 Discharged to home ambulatory, with significant other. ca1 18:21 Condition: stable 18:21 Discharge instructions given to patient, Instructed on discharge instructions, follow up and referral plans. Demonstrated understanding of instructions, follow-up care. 18:22 Patient left the ED. ca1 Signatures: Jhoana Castro Shelby, RN RN Brinda Grubbs MD MD [facility] Shannan Smith, RN RN ca1
[2019-03-03 18:26] VITALS: TEMP 97.4
[2019-03-03 18:29] VITALS: BP 136/72; O2SAT 98
--- NOTE | 2019-03-04 05:32 | EKG ---
Test Date: 2019-03-03 Test Time: 17:26:43 Code Number Stamper: KASIA MEASUREMENT RESULTS: Intervals: Rate: 61 OK: 174 QRSD: 104 QT: 446 QTc: 448 [place]: P: 62 OK: 174 QRS: -31 T: 95 INTERPRETIVE STATEMENTS: Normal sinus rhythm Left axis deviation non specific T wave abnormality Abnormal ECG Compared to ECG 01/02/2018 10:28:27 Left-axis deviation now present T-wave abnormality now present Sinus bradycardia no longer present Sinus arrhythmia no longer present Electronically Signed On 03-04-19 05:31:59 CDT by Pramod Lundberg
== END 2019-03-03 18:22 | disposition home or self-care (01) ==
LOC: ER 16:42
DX: I10 Essential (primary) hypertension (principal); E78.5 Hyperlipidemia, unspecified; Z88.6 Allergy status to analgesic agent; Z88.1 Allergy status to other antibiotic agents
CPT/HCPCS: 93005; 99283

== ENCOUNTER 2020-04-06 13:50 | Emergency (ER) | payer OTHER ==
--- OUTSIDE RECORDS SUMMARY | 2020-04-06 14:11 | XMS REPORT | Clinical Summary ---
:1935 Author Organization [facility] Address [address] [place] [address] Care Team Providers Name Role Phone David Montoya MD Primary Care Provider [phone] Allergies No Known Active Allergies Medications Medication Sig Dispensed Refills Start End Date Status Date rivaroxaban (XARELTO) 20 Take 20 mg 0 Active mg tablet by mouth. atorvastatin (LIPITOR) Take 10 mg 0 Active 10 MG tablet by mouth daily. lisinopriL 20 mg tablet Take by 0 Active 1 tablet, mouth hydroCHLOROthiazide 25 daily. MG tablet 0.5 tablet metoprolol tartrate Take 50 mg 0 Active (LOPRESSOR) 50 mg tablet by mouth 2 (two) times a day. metFORMIN (GLUCOPHAGE) Take 500 0 Active 500 mg tablet mg by mouth 2 (two) times a day with meals. hydrOXYzine (ATARAX) 10 Take 10 mg 0 Active MG tablet by mouth 3 (three) times a day as needed for itching. metroNIDAZOLE (FLAGYL) Take 250 0 Active 250 MG tablet mg by mouth 3 (three) times a day. famotidine (PEPCID) 20 Take 20 mg 0 Active MG tablet by mouth 2 (two) times a day. ranitidine (ZANTAC) 15 Take by 0 0 Discontinued mg/mL syrup mouth 2 20 (Med Lis t (two) Cleanup) times a day. Active Problems Problem Noted Date Rectal bleeding 09/15/2019 Indigestion 09/15/2019 Flatulence, eructation and gas pain 09/15/2019 Encounters Date Type Specialty Care Team Description 09/15/2019 Telephone Consult Gastroenterology [employer] er abdominal pain (Primary Dx); MD Gagan Rectal bleeding ; Diarrhea, unspe cified type; Indigestion; Flatulence, eru ctation and gas pain; Vitamin D defic iency 09/15/2019 Documentation Gastroenterology Kaylee Melgar, EGD/ Co scott To be MA scheduled; Card iac Clearance 09/15/2019 Travel 09/12/2019 Travel after 04/06/2019 Surgical History Surgery Date Site/Laterality Comments APPENDECTOMY COLONOSCOPY 05/21/2006 - 05/20/2007 UPPER GASTROINTESTINAL ENDOSCOPY 05/21/2006 - 05/20/2007 Medical History Medical History Date Comments Hypertension Hyperlipidemia Diabetes mellitus (HCC) Family History Medical History Relation Name Comments Prostate cancer Father Breast cancer Sister Relation Name Status Comments Father Mother Sister Social History Tobacco Use Types Packs/Day Years Used Date Never Smoker Smokeless Tobacco: Never Used Alcohol Use Drinks/Week oz/Week Comments Never Alcohol Habits Answer Date Recorded How often do you have a drink containing alcohol? Never 09/15/2019 How many drinks containing alcohol do you have on a typical Not asked day when you are drinking? How often do you have six or more drinks on one occasion? No t asked Sex Assigned at Date Recorded Not on file Last Filed Vital Signs Not on file Plan of Treatment Health Maintenance Due Date Last Done Comments SHINGLES VACCINES (#1) 1986 65+ PNEUMOCOCCAL VACCINE (1 of - PPSV23) 2001 INFLUENZA VACCINE 12/20/2019 Procedures Procedure Name Priority Date/Time Associated Comments Diagnosis IMMUNOGLOBULIN A Routine 09/17/2019 11:41 Results for this AM CDT procedure are i n the results section. ENDOMYSIAL ANTIBODY Routine 09/17/2019 11:41 Resu lts for this TITER AM CDT procedure are i n the results section. ENDOMYSIAL ANTIBODY Routine 09/17/2019 11:41 Resu lts for this SCREEN (IGA) AM CDT procedure are i n the results section. TISSUE TRANSGLUTAMINASE Routine 09/17/2019 11:41 Results for this AB, IGA AM CDT procedure are i n the results section. TISSUE TRANSGLUTAMINASE Routine 09/17/2019 11:41 Results for this AB, IGG AM CDT procedure are i n the results section. GLIADIN ANTIBODY, IGA Routine 09/17/2019 11:41 Re sults for this AM CDT procedure are i n the results section. GLIADIN (DEAMIDATED) AB Routine 09/17/2019 11:41 Results for this (IGG) AM CDT procedure are i n the results section. VITAMIN D 25 HYDROXY Routine 09/17/2019 11:41 Vitamin D Res ults for this LEVEL AM CDT deficiency procedure are i n the results section. LIPASE LEVEL Routine 09/17/2019 11:41 Diarrhea, Results for this AM CDT unspecified type procedure a re in the results section. COMPREHENSIVE METABOLIC Routine 09/17/2019 11:41 Rectal bleedi ng Results for this PANEL AM CDT procedure are i n the results section. SEDIMENTATION RATE Routine 09/17/2019 11:41 Rectal bleeding Re sults for this AM CDT procedure are i n the results section. CBC WITH PLATELET AND Routine 09/17/2019 11:41 Rectal bleeding Results for this DIFFERENTIAL AM CDT procedure are i n the results section. after 04/06/2019 Results Endomysial antibody titer (09/17/2019 11:41 AM CDT) Endomysial antibody TNP titer [facility] titer Comment: [facility] Test Not Performed. Screening test Negative or Not Det ected. Titer not performed. Specimen Resulting Agency Comment Performing Organization Information: Site ID: EZ Name: [facility], Address: [address] [place] [phone] Director: Simran Torres MD,PhD,MB A Performing Organization Address [facility] Phon e Number [facility] [address] [place] [address] [facility] [id number] Endomysial antibody screen (IgA) (09/17/2019 11:41 AM CDT) Pathologist Sig nature Endomysial antibody scr NEGATIVE NEGATIVE [facility] (IgA) w/refl to titer [facility] Specimen Resulting Agency Comment Performing Organization Information: Site ID: EZ Name: [facility], Address: [address] [place] [phone] Director: Simran Torres MD,PhD,MB A Performing Organization Address [facility] Phon e Number [facility] [id number] [place] [address] [facility] [id number] Gliadin (Deamidated) Ab (IgG) (09/17/2019 11:41 AM CDT) Pathologist Sig nature Gliadin IgG 1 <20 U [facility] Comment: [facility] Reference Ranges for Gliadin (Deamidated) Antibody (IgG): <20 units Antibody Not Detected > or = 20 units Antibody Detected Specimen Resulting Agency Comment Performing Organization Information: Site ID: EZ Name: [facility], Address: [address] [place] [address] Director: Simran Torres MD,PhD,MB A Performing Organization Address [facility] Phon e Number [facility] [address] [place] [address] [facility] [id number] Gliadin antibody, IgA (09/17/2019 11:41 AM CDT) Pathologist Sig nature Gliadin IgA 5 <20 U [facility] Comment: [facility] Reference Ranges for Gliadin (Deamidated) Antibody (IgA): <20 units Antibody Not Detected > or = 20 units Antibody Detected Specimen Resulting Agency Comment Performing Organization Information: Site ID: EZ Name: [facility], Address: [address] [place] [address] Director: Simran Torres MD,PhD,MB A Performing Organization Address [facility] Phon e Number [facility] [address] [place] [address] [facility] [address] Tissue transglutaminase Ab, IgA (09/17/2019 11:41 AM CDT) Tissue transglutaminase <1 U/mL [facility] Ab, IgA Comment: [facility] <4 No Antibody Detected > OR = 4 Antibody Detected Specimen Resulting Agency Comment Performing Organization Information: Site ID: EZ Name: [facility], Address: [address] [place] [address] Director: Simran Torres MD,PhD,MB A Performing Organization Address City/[facility]/ZIP Code Phon e Number [facility] [address] [place], [place] [phone] [facility] [address] Tissue transglutaminase Ab, IgG (09/17/2019 11:41 AM CDT) Tissue transglutaminase 5 U/mL [facility] Ab, IgG Comment: [facility] <6 No Antibody Detected > OR = 6 Antibody Detected Specimen Resulting Agency Comment Performing Organization Information: Site ID: EZ Name: [facility], Address: [address] [place] [phone] Director: Simran Torres MD,PhD,MB A Performing Organization Address [facility] Phon e Number [facility] [address] [place] [address] [facility] [id number] Vitamin D 25 hydroxy level (09/17/2019 11:41 AM CDT) Pathologist [facility] Vitamin D, 28 (L) 30 - 100 [facility] 25-hydroxy Comment: ng/mL [place] Vitamin D Status 25-OH Vitamin D: Deficiency: <20 ng/mL Insufficiency: 20 - 29 ng/mL Optimal: > or = 30 ng/mL For 25-OH Vitamin D testing on patients on D2-supplementation and patients for whom quantitation of D2 and D3 fractions is required, the [facility](T M) 25-OH VIT D, (D2,D3), LC/MS/MS is recommended: order code 69041 (patients >2yrs). For more information on this test, go to: http://education.CC video/faq/HGI874 (This link is being provided for informational/educational purposes only.) Specimen Blood Resulting Agency Comment Performing Organization Information: Site ID: RGA Name: [facility] Address: [address] [place] [phone] Director: Ruiz Wallis Performing Organization Address City/[facility]/ZIP Code Phon e Number [facility] [place] [address] [place] [address] Sedimentation rate (09/17/2019 11:41 AM CDT) Pathologist [facility] nature Sedimentation rate 29 < OR = 30 mm/h [facility] [place] Specimen Blood Resulting Agency Comment Performing Organization Information: Site ID: RGA Name: Leisa Daniel Address: [address] [place] [phone] Director: Ruiz Wallis Performing Organization Address City/[facility] Phon e Number LEISA BAILEY [place] [address] [place] [address] CBC with platelet and differential (09/17/2019 11:41 AM CDT) Pathologist [facility] WBC 5.4 3.8 - 10.8 [facility] Thousand/uL [place] RBC 4.00 3.80 - 5.10 [facility] Million/uL [place] HGB 11.8 11.7 - 15.5 [facility] g/dL [place] HCT 34.9 (L) 35.0 - 45.0 % [facility] MCV 87.3 80.0 - 100.0 fL [facility] [place] MCH 29.5 27.0 - 33.0 pg [facility] [place] MCHC 33.8 32.0 - 36.0 [facility] g/dL [place] RDW 13.4 11.0 - 15.0 % [facility] [place] Platelet count 228 140 - 400 [facility] Thousand/uL [place] MPV 11.5 7.5 - 12.5 fL [facility] Neutrophils, absolute 3,456 1,500 - 7,800 [facility] cells/uL [place] Lymphocytes, absolute 1,296 850 - 3,900 [facility] cells/uL [place] Monocytes, absolute 529 200 - 950 [facility] cells/uL [place] Eosinophils, absolute 81 15 - 500 [facility] cells/uL [place] Basophils, absolute 38 0 - 200 [facility] cells/uL [place] Neutrophils 64 % [facility] [place] Lymphocytes 24.0 % [facility] [place] Monocytes 9.8 % [facility] [place] Eosinophils 1.5 % [facility] [place] Basophils + RC 0.7 % [facility] [place] Specimen Blood Resulting Agency Comment Performing Organization Information: Site ID: JULIANNAA Name: Leisa Daniel Address: [address] [place] [phone] Director: Ruiz Wallis Performing Organization Address City/[facility] Phon e Number LEISA BAILEY [place] [address] [place] [address] Lipase level (09/17/2019 11:41 AM CDT) Pathologist Sig nature Lipase 63 (H) 7 - 60 U/L [facility] [place] Specimen Blood Resulting Agency Comment Performing Organization Information: Site ID: RGA Name: [facility] [place] bull Address: [address] [place] [phone] Director: Ruiz Wallis Performing Organization Address [facility] Phon e Number [facility] [address] [address] Immunoglobulin A (09/17/2019 11:41 AM CDT) Pathologist Sig nature IgA 384 (H) 70 - 320 mg/dL [facility] Specimen Resulting Agency Comment Performing Organization Information: Site ID: EZ Name: [facility], Address: [address] [place] [phone] Director: Simran Torres MD,PhD,MB A Performing Organization Address City/[facility] Phon e Number [facility] [address] [place] [address] [facility] [id number] Comprehensive metabolic panel (09/17/2019 11:41 AM CDT) Glucose 134 (H) 65 - 99 [facility] Comment: mg/dL [place] Fasting reference interval For someone without known diabetes, a glucose value >125 mg/dL indicates that they may have diabetes and this should be confirmed with a follow-up test. BUN 12 7 - 25 mg/dL [facility] [place] Creatinine 0.68 0.60 - 0.88 [facility] Comment: mg/dL [place] For patients >49 years of age, the reference limit for Creatinine is approximately 13% higher for people identified as -[place]. EGFR Non-Afr. 81 > OR = 60 [facility] [place] mL/min/1.73m [place] 2 EGFR 94 > OR = 60 [facility] [place] mL/min/1.73m [place] 2 BUN/creatinine NOT APPLICABLE 6 - 22 [facility] ratio (calc) [place] Sodium 132 (L) 135 - 146 [facility] mmol/L [place] Potassium 4.4 3.5 - 5.3 [facility] mmol/L [place] Chloride 96 (L) 98 - 110 [facility] mmol/L [place] CO2 27 20 - 32 [facility] mmol/L [place] Calcium 9.7 8.6 - 10.4 [facility] mg/dL [place] Protein 7.2 6.1 - 8.1 [facility] g/dL [place] Albumin, S 4.1 3.6 - 5.1 [facility] g/dL [place] Globulin, total 3.1 1.9 - 3.7 [facility] g/dL (calc) [place] Albumin/globulin 1.3 1.0 - 2.5 [facility] ratio (calc) [place] Total bilirubin 0.3 0.2 - 1.2 [facility] mg/dL [place] Alkaline 39 37 - 153 U/L [facility] phosphatase [place] AST 28 10 - 35 U/L [facility] [place] ALT 24 6 - 29 U/L [facility] [place] Specimen Blood Resulting Agency Comment Performing Organization Information: Site ID: RGA Name: [facility] Address: [address] [place] [phone] Director: Ruiz Wallis Performing Organization Address City/State/ZIP Code Phon e Number [employer] [place] [phone] after 04/06/2019 Insurance Payer Benefit Plan / Subscriber ID Effective Dates Phone Addre ss Type Group [employer] [id number] 2019-RUSTO MCR ADV t Advance Directives For more information, please contact: [phone] Type Date Recorded Patient Customer Account Administrator Explanati on Advance Directives, Living Will and Medical Power of Multimedia Educational Specialist
--- OUTSIDE RECORDS SUMMARY | 2020-04-06 14:12 | XMS REPORT | Continuity of Care Document ---
:1935 Author Organization [facility] Address [address] [place] [address] Care Team Providers Name Role Phone Lindsay CARR, David Montemayor Primary Care Physician [phone] Elin CARR Attending Clinician Talia ROD Attending Clinician Unavailable Payers Payer Name Policy Type Policy Effective Date Expiration Source Number Date CIGNA [id number] 2019 [facility] 00:00:00 [facility] [id number] 2019 -PresentHMO Problems Condition Condition Condition Status Onset Resolution Last Treating Co mments Source Name Details Category Date Date Treatment Clinician Date Rectal Rectal Disease Active [place] bleeding bleeding 09-14 Method i 00:00: st 00 Indigestio Indigestio Disease Active 2020-0 [place] n n 4 Methodi 00:00: st 00 Flatulence Flatulence Disease Active 2020-0 [place] , , 427 Methodi eructation eructation 00:00: st and gas and gas 00 pain pain Allergies, Adverse Reactions, Alerts This patient has no known allergies or adverse reactions. Family History Family Member Diagnosis Comments Start Date Stop Date Source Natural father Prostate cancer [place] Natural sister Breast cancer [facility] Social History Social Habit Start Date Stop Date Quantity Comments [facility] Alcohol Binge Sex Assigned At [facility] ethodist Tobacco use and 2019-09-15 2019-09-15 Never used [facility] ethodist exposure 00:00:00 00:00:00 Alcohol intake 2019-09-15 2019-09-15 [facility] thodist 00:00:00 00:00:00 non-drinker (finding) History SDOH 2019-09-15 2019-09-15 1 [facility] Alcohol Frequency 00:00:00 00:00:00 Smoking Status Start Date Stop Date Source Never smoker [facility] t Medications Ordered Filled Start Stop Current Ordering Indication Dosage Frequency Signature Comments Components Source Medication Medication Date Date Medication? Clinician (SIG) Name Name famotidine 2020-0 Yes 20mg Q.5D Take 20 mg [place] (PEPCID) 20 - by mouth 2 Me thodi MG tablet 11:38: (two) st 12 times a day. ranitidine 2020-0 2020- No Q.5D Take by Branden ston (ZANTAC) 15 09-14 mouth 2 Meth richa mg/mL syrup 11:37: 00:00 (two) st 49 :00 times a day. metroNIDAZO 2020-0 Yes 250mg Q.81470971 Take 250 [facility] LE (FLAGYL) 09-14 [id number] mg by M ethodi 250 MG 09:00: 3D mouth 3 st tablet 02 (three) times a day. rivaroxaban 2020-0 Yes 20mg Take 20 mg [facility] (XARELTO) 09-14 by mouth. Metho di 20 mg 08:59: st tablet 57 atorvastati 2020-0 Yes 10mg QD Take 10 mg [facility] n (LIPITOR) - by mouth Meth richa 10 MG 08:59: daily. st tablet 57 lisinopriL 2020-0 Yes QD Take by [place] 20 mg - mouth Methodi tablet 1 08:59: daily. st tablet, 57 hydroCHLORO thiazide 25 MG tablet 0.5 tablet metoprolol 2020-0 Yes 50mg Q.5D Take 50 mg [place] tartrate 4-27 by mouth 2 Metho di (LOPRESSOR) 08:59: (two) st 50 mg 57 times a tablet day. metFORMIN 2020-0 Yes 500mg Q.5D Take 500 [address] [address] (GLUCOPHAGE 4-27 mg by Methodi ) 500 mg 08:59: mouth 2 st tablet 57 (two) times a day with meals. hydrOXYzine 2020-0 Yes 10mg Q.43199899 Take 10 mg [facility] (ATARAX) 10 09-14 [id number] by mouth 3 Methodi MG tablet 08:59: 3D (three) st 57 times a day as needed for itching. Procedures Procedure Date / Time Performing Clinician Source Performed CBC WITH PLATELET AND 2019-09-17 11:41:00 Natalee Worthington DIFFERENTIAL Lisa SEDIMENTATION RATE 2019-09-17 11:41:00 Kody Worthington ethodist Lisa COMPREHENSIVE METABOLIC 2019-09-17 11:41:00 Janet Worthington PANEL Lisa LIPASE LEVEL 2019-09-17 11:41:00 Kody Worthington Meth odist Lisa VITAMIN D 25 HYDROXY LEVEL 2019-09-17 11:41:00 Meagan Worthington TISSUE TRANSGLUTAMINASE AB, 2019-09-17 11:41:00 Kody Worthington IGA Lisa ENDOMYSIAL ANTIBODY SCREEN 2019-09-17 11:41:00 Meagan Worthington (IGA) Lisa ENDOMYSIAL ANTIBODY TITER 2019-09-17 11:41:00 Dioni Worthington IMMUNOGLOBULIN A 2019-09-17 11:41:00 Kody Worthington Plan of Care Planned Activity Planned Date Details Comments Source Future Scheduled 2019-12-20 INFLUENZA VACCINE Natalee De La Rosa Test 00:00:00 [code = INFLUENZA VACCINE] Future Scheduled 2001 65+ PNEUMOCOCCAL Kody De La Rosa Test 00:00:00 VACCINE (1 of 1 - PPSV23) [code = 65+ PNEUMOCOCCAL VACCINE (1 of 1 - PPSV23)] Future Scheduled 1986 SHINGLES VACCINES (#1) Meagan De La Rosa Test 00:00:00 [code = SHINGLES VACCINES (#1)] Encounters Start End Encounter Admission Attending Care Care Encounter Source Date/Time Date/Time Type Type Clinicians Facility Department ID 2019-09-15 2019-09-15 Outpatient [facility] [id number] [place] 00:00:00 00:00:00 LISA DUENAS 219 Met samuel murdock Results Test Description Test Time Test Comments Results Result Comments Source Comprehensive metabolic panel 2019-09-22 19:21:00 Test Item Value Reference Range Interpretation Comme nts Glucose (test code = 134 mg/dL 65-99 H Fasting 2345-7) reference inter evita For someone without known diabetes, a glu cosevalue >125 mg/dL cricket cates that they may havedi abetes and this should be confirmed with afollow-up test. BUN (test code = 12 mg/dL 12-12 3094-0) Creatinine (test code = 0.68 mg/dL 0.6-0.88 For patients >49 years of 2160-0) age, the refere nce limitfor Creati nine is approximately 1 3% higher for peopleident ified as -Simin n. EGFR Non-Afr. [place]er 81 > OR = 60 (test code = 2775) mL/min/1.73m2 EGFR 94 > OR = 60 (test code = 96304-1) mL/min/1.73m2 BUN/creatinine ratio NOT APPLICABLE (calc) (test code = 3097-3) Sodium (test code = 132 mmol/L 135-146 L 2951-2) Potassium (test code = 4.4 mmol/L 3.5-5.3 2823-3) Chloride (test code = 96 mmol/L 98-110 L 2074-0) CO2 (test code = 27 mmol/L 20-32 2027-9) Calcium (test code = 9.7 mg/dL 8.6-10.4 75385-2) Protein (test code = 7.2 g/dL 6.1-8.1 2885-2) Albumin, S (test code = 4.1 g/dL 3.6-5.1 1751-7) Globulin, total (test 3.1 1.9- 3.7 g/dL code = 48836-4) (calc) Albumin/globulin ratio 1.3 1.0- 2.5 (test code = 1759-0) (calc) Total bilirubin (test 0.3 mg/dL 0.2-1.2 code = 1974-) Alkaline phosphatase 39 U/L 37-153 (test code = 6768-6) AST (test code = 28 U/L 10-35 1920-8) ALT (test code = 24 U/L -1741-6) RAC (test code = RAC) Performing Organization Information: Site ID: RGA [facility]: [facility] Address: [address] [place] [address] Director: Ruiz Wallis Lab Interpretation Abnormal (test code = 13657-7) [place] MethodistImmunoglobulin [id number] 19:21:00 Test Item Value Reference Range Interpretation Comments IgA (test code = 2458-8) 384 mg/dL 70-320 H RAC (test code = RAC) Performing Organization Information: Site ID: EZ Name: [facility], Address: [address] [place] [phone] Director: Simran Torres MD,PhD,GREGORIO Lab Interpretation (test Abnormal code = 20874-0) [place] MethodistLipase [id number] 19:21:00 Test Item Value Reference Range Interpretation Comments Lipase (test code = 63 U/L 7-60 H 3040-3) RAC (test code = RAC) Performing Organization Information: Site ID: RGA [facility]: [facility] Address: [address] [place] [phone] Director: Ruiz Wallis Lab Interpretation (test Abnormal code = 89976-3) [place] MethodistCBC with platelet and [id number] 19:21:00 Test Item Value Reference Range Interpretation Comments WBC (test code = 5.4 3.8- 10.8 6690-2) Thousand/uL RBC (test code = 789-8) 4.00 3.80- 5.10 Million/uL HGB (test code = 718-7) 11.8 g/dL 11.7-15.5 HCT (test code = 34.9 % 35-45 L 4544-3) MCV (test code = 787-2) 87.3 fL 80-100 MCH (test code = 785-6) 29.5 pg 27-33 MCHC (test code = 33.8 g/dL 32-36 786-4) RDW (test code = 788-0) 13.4 % 11-15 Platelet count (test 228 140- 400 code = 777-3) Thousand/uL MPV (test code = 776-5) 11.5 fL 7.5-12.5 Neutrophils, absolute 3456 1,500 - 7,800 (test code = 751-8) cells/uL Lymphocytes, absolute 1296 850- 3,900 (test code = 731-0) cells/uL Monocytes, absolute 529 200- 950 cells/uL (test code = 742-7) Eosinophils, absolute 81 15- 500 cells/uL (test code = 711-2) Basophils, absolute 38 0- 200 cells/uL (test code = 704-7) Neutrophils (test code 64 % = 770-8) Lymphocytes (test code 24.0 % = 736-9) Monocytes (test code = 9.8 % 5905-5) Eosinophils (test code 1.5 % = 713-8) Basophils + RC (test 0.7 % code = 706-2) RAC (test code = RAC) Performing Organization Information: Site ID: RGA Name: [facility] Address: [address] [place] [phone] Director: Ruiz Wallis Lab Interpretation Abnormal (test code = 82961-3) [place] MethodistSedimentation [id number] 19:21:00 Test Item Value Reference Range Interpretation Comments Sedimentation rate 29 mm/h < OR = 30 (test code = 4537-7) RAC (test code = RAC) Performing Organization Information: Site ID: RGA [facility]: [facility] Address: [address] [place] [phone] Director: Ruiz Wallis [place] MethodistVitamin D 25 hydroxy [id number] 19:21:00 Test Item Value Reference Range Interpretation Comments Vitamin D, 28 ng/mL 30-100 L Vitamin D Statu s 25-hydroxy (test 25-O H code = 1989-3) Vitamin D: Deficiency: <2 0 ng/mLInsufficie nc y: 20 - 29 ng/mLOptimal: > o r = 30 ng/mL For 25-OH Vitamin D testing on patients on D2-supplementat io n and patients for whom quantitation of D2 and D3 fractions is required, the QuestAssureD(TM )2 5-OH VIT D, (D2,D3), LC/MS/ MS is recommended: order code 9288 8 (patients >2yrs ). For more information on this test, go to:[email or web address] [email or web address] (This link is being provided for informational/e du cational purpos es only.) RAC (test code = Performing RAC) Organization Information: Site ID: RGA [facility]: [facility] Address: [address] [place] [phone] Director: Ruiz Wallis Lab Interpretation Abnormal (test code = 81054-6) [place] MethodNicolee transglutaminase Ab, [id number] 19:21:00 Test Item Value Reference Range Interpretation Comments Tissue transglutaminase 5 U/mL <6 No Ab, IgG (test code = Antibod y 24298-9) Detected> OR = 6 Antibody Detected RAC (test code = RAC) Performing Organization Information: Site ID: EZ Name: [facility], Address: [address] [place], [place] [id number] Director: Simran Torres MD,PhD,GREGORIO [place] MethodistTise transglutaminase Ab, [id number] 19:21:00 Test Item Value Reference Range Interpretation Comments Tissue transglutaminase <1 U/mL <4 No Ab, IgA (test code = Antibod y 89189-2) Detected> OR = 4 Antibody Detected RAC (test code = RAC) Performing Organization Information: Site ID: EZ Name: [facility], Address: [address] [place] [phone] Director: Simran Torres MD,PhD,GREGORIO [place] MethodistGliadin antibody, [id number] 19:21:00 Test Item Value Reference Range Interpretation Comments Gliadin IgA 5 U <20 Reference Rang es (test code = for Gliadin 62947-4) (Deamidated) Antibody (IgA): <20 units Antibody Not Detected > or = 20 units Antibody Detect ed RAC (test code = Performing RAC) Organization Information: Site ID: EZ Name: [facility], Address: [address] [place], [place] [phone] Director: Simran Torres MD,PhD,GREGORIO [place] MethodistGliadin (Deamidated) Ab (IgG)2019-09-22 19:21:00 Test Item Value Reference Range Interpretation Comments Gliadin IgG 1 U <20 Reference Rang es (test code = for Gliadin 22421-4) (Deamidated) Antibody (IgG): <20 units Antibody Not Detected > or = 20 units Antibody Detect ed RAC (test code = Performing RAC) Organization Information: Site ID: EZ Name: [facility], Address: [address] [place], [place] [phone] Director: Simran Torres MD,PhD,GREGORIO Sarabiaomysial antibody screen (IgA)2019-09-22 19:21:00 Test Item Value Reference Range Interpretation Comments Endomysial antibody NEGATIVE NEGATIVE scr (IgA) w/refl to titer (test code = 77913-5) RAC (test code = RAC) Performing Organization Information: Site ID: EZ Name: [facility], Address: [address] [place], [place] [phone] Director: Simran Torres MD,PhD,GREGORIO Sarabiaomysial antibody [id number] 19:21:00 Test Item Value Reference Range Interpretation Comments Endomysial TNP titer Test Not antibody titer Performed. (test code = Screening test 80775-8) Negative or Not Detected.Titer not performed. RAC (test code = Performing RAC) Organization Information: Site ID: EZ Name: [facility], Address: [address] [place] [phone] Director: Simran Torres MD,PhD,GREGORIO De La Rosa
[2020-04-06 15:06] LABS: Basophils % 0.4 % (0-1.3); Hematocrit 36.2 % (36.0-45.0); Lymphocytes % 23.8 % (15.3-44.8); MPV 10.4 fL (7.6-11.3); RBC Red Blood Cell Count 4.06 M/uL (3.86-4.86)
[2020-04-06 15:31] LABS: ALT/SGPT 25 U/L (12-78); Albumin 3.6 g/dL (3.4-5.0); Alkaline Phosphatase 49 U/L (45-117); BUN Blood Urea Nitrogen 31 mg/dL (7-18); Bicarbonate 28 mmol/L (21-32); Bilirubin Direct < 0.1 mg/dL (0-0.2); Bilirubin Total 0.4 mg/dL (0.2-1.0); Glucose Level 128 mg/dL (74-106); Lipase 345 U/L (73-393); Protein, Total 7.5 g/dL (6.4-8.2); Sodium Level 133 mmol/L (136-145); Troponin (Emerg Dept Use Only) < 0.02 ng/mL (0.0-0.045)
[2020-04-06 15:32] LABS: AST/SGOT 25 U/L (15-37); Potassium 4.1 mmol/L (3.5-5.1)
--- NOTE | 2020-04-06 15:36 | RAD REPORT ---
EXAM DESCRIPTION: CTAbdomen Pelvis W Contrast - 04/06/2020 3:14 pm CLINICAL HISTORY: Abdominal pain. left sided abdominal pain COMPARISON: Thorax Wo Con dated 12/20/2017 TECHNIQUE: Biphasic CT imaging of the abdomen and pelvis was performed with 100 ml non-ionic IV cont rast. All CT scans are performed using dose optimization technique as appropriate and may include automated exposure control or mA/KV adjustment according to patient size. FINDINGS: The lung bases are clear. The liver, spleen, pancreas, adrenal glands and kidneys are within normal limits. Cholecystectomy. No bowel obstruction, free air, free fluid or abscess. Sigmoid diverticulosis coli is present without diverticulitis. Appendectomy. No evidence of significant lymphadenopathy. 30 x 13 mm soft tissue density lesion with calcification noted in the anterior abdominal omental fat. Small rounded similar lesion is seen slightly inferiorly located measuring 10 mm. Moderate lumbar degenerative changes. IMPRESSION: Sigmoid diverticulosis coli is seen without evidence of diverticulitis. Soft tissue omental lesions are present as detailed of unclear etiology. Followup nonemergent PET-CT imaging would be suggested to evaluate further.
[2020-04-06] MEDS ORDERED: NA CHLORIDE 0.9% 500 ML ONE (15:49)
--- NOTE | 2020-04-06 15:58 | ER ---
Nurse's Notes [facility] Name: Diandra Shepard Age: 84 yrs Sex: Female : 1935 Arrival Date: 04/06/2020 Time: 13:52 Bed 19 Private MD: David Montoya Diagnosis: Person with feared health complaint in whom no diagnosis is made Presentation: 04/06 13:58 Chief complaint: Patient states: BP has been low for 3 days. BP at home 88/45. No ll1 weakness or dizziness. No cough/fever/SOB. Coronavirus screen: Client denies travel out of the [place] in the last 14 days. At this time, the client does not indicate any symptoms associated with coronavirus-19. Ebola Screen: Patient denies travel to an Ebola-affected area in the 21 days before illness onset. Initial Sepsis Screen: Does the patient meet any 2 criteria? No. Patient's initial sepsis screen is negative. Does the patient have a suspected source of infection? No. Patient's initial sepsis screen is negative. Risk Assessment: Do you want to hurt yourself or someone else? Patient reports no desire to harm self or others. Onset of symptoms was April 04, 2020. 13:58 Method Of Arrival: Ambulatory ll1 13:58 Acuity: VANESSA 3 ll1 Historical: - Allergies: 14:00 Codeine; ll1 14:00 Levaquin; ll1 14:00 Tylenol; ll1 - PMHx: 14:00 Hyperlipidemia; Hypertension; ll1 - PSHx: 14:00 Cholecystectomy; Appendectomy; ll1 - Immunization history:: Flu vaccine is up to date. - Social history:: Smoking status: Patient denies any tobacco usage or history of. Screenin:03 Abuse screen: Denies threats or abuse. Nutritional screening: No deficits noted. tw2 Tuberculosis screening: No symptoms or risk factors identified. Fall Risk Secondary diagnosis (15 points) impaired mobility. Assessment: 14:02 General: Appears in no apparent distress. obese, well groomed, Behavior is calm, tw2 cooperative, appropriate for age. Pain: Denies pain. Neuro: Level of Consciousness is awake, alert, obeys commands, Oriented to person, place, time, situation. Cardiovascular: Heart tones S1 S2 Patient's skin is warm and dry. Respiratory: Airway is patent Respiratory effort is even, unlabored, Respiratory pattern is regular, symmetrical, Breath sounds are clear bilaterally. GI: No signs and/or symptoms were reported involving the gastrointestinal system. Abdomen is round non-distended, obese, Bowel sounds present X 4 quads. : No signs and/or symptoms were reported regarding the genitourinary system. EENT: No signs and/or symptoms were reported regarding the EENT system. Derm: No signs and/or symptoms reported regarding the dermatologic system. Musculoskeletal: Range of motion: intact in all extremities. 15:24 Reassessment: Patient appears in no apparent distress at this time. No changes from tw2 previously documented assessment. Patient and/or family updated on plan of care and expected duration. Pain level reassessed. Patient is alert, oriented x 3, equal unlabored respirations, skin warm/dry/pink. 16:10 Reassessment: Patient appears in no apparent distress at this time. No changes from tw2 previously documented assessment. Patient and/or family updated on plan of care and expected duration. Pain level reassessed. Patient is alert, oriented x 3, equal unlabored respirations, skin warm/dry/pink. Vital Signs: 13:58 BP 148 / 59; Pulse 60; Resp 17; Temp 98.3; Pulse Ox 96% ; Weight 75.75 kg; Height 5 ft. ll1 (152.40 cm); Pain 0/10; 15:24 BP 136 / 51; Pulse 52; Resp 17; Pulse Ox 95% on R/A; tw2 16:10 BP 117 / 57; Pulse 52; Resp 17; Pulse Ox 99% on R/A; tw2 13:58 Body Mass Index 32.61 (75.75 kg, 152.40 cm) ll1 ED Course: 13:52 Patient arrived in ED. ag5 13:53 David Montoya MD is Private Physician. ag5 14:00 Triage completed. ll1 14:01 Arm band placed on Patient placed in an exam room, on a stretcher. ll1 14:03 Flor Vital RN is Primary Nurse. tw2 14:04 Eric Mc PA is PHCP[facility] 14:04 Bridger Blanchard MD is Attending Physician. [facility] 14:04 Bed in low position. Call light in reach. Side rails up X 1. Pulse ox on. NIBP on. tw2 14:17 Radiology exam delayed due to IV insertion attempt and/or patient not having vm2 appropriate IV at this time. 14:40 Inserted saline lock: 20 gauge in left antecubital area, using aseptic technique. Blood tw2 collected. 15:15 CT Abd/Pelvis - IV Contrast Only In Process Unspecified. EDMS 15:57 David Montoya MD is Referral Physician. susie 16:14 No provider procedures requiring assistance completed. IV discontinued, intact, tw2 bleeding controlled, No redness/swelling at site. Pressure dressing applied. Administered Medications: 15:39 Drug: NS 0.9% 500 ml Route: IV; Rate: bolus; Site: left antecubital; tw2 16:14 Follow up: Response: No adverse reaction; IV Status: Completed infusion; IV Intake: tw2 500ml Intake: 16:14 IV: 500ml; Total: 500ml. tw2 Outcome: 15:58 Discharge ordered by . susie 16:14 Discharged to home ambulatory, with family. tw2 16:14 Condition: stable 16:14 Discharge instructions given to patient, family, Instructed on discharge instructions, follow up and referral plans. Demonstrated understanding of instructions, follow-up care. 16:18 Patient left the ED. tw2 Signatures: Dispatcher [employer] EDMS Eric Mc PA PA jmm Wise, Tara, RN RN tw2 Lauren Lu 2 Rosas Wheeler Geni Sharma RN RN ll1
--- NOTE | 2020-04-06 15:58 | EDPHYS ---
Physician Documentation [facility] Name: Diandra Shepard Age: 84 yrs Sex: Female : 1935 Arrival Date: 04/06/2020 Time: 13:52 Bed 19 Private MD: David Montoya ED Physician Bridger Blanchard HPI: 04/06 14:16 This 84 yrs old Female presents to ER via Ambulatory with complaints of Blood jm Pressure Problem. 14:16 The patient presents with abdominal pain. Onset: The symptoms/episode began/occurred jmm gradually, 1 day(s) ago. The symptoms do not radiate. Associated signs and symptoms: Pertinent negatives: dysuria, fever, vomiting. The symptoms are described as achy. This is a 84 year old female with a history of hlp, htn that presents to the ED with complaints of left sided abdominal pain beginning last night. Denies fever, vomiting, diarrhea. BP earlier today was as low as 88/40 prior to arrival. Patient states she takes lisinopril and metoprolol today. . Historical: - Allergies: 14:00 Codeine; ll1 14:00 Levaquin; ll1 14:00 Tylenol; ll1 - PMHx: 14:00 Hyperlipidemia; Hypertension; ll1 - PSHx: 14:00 Cholecystectomy; Appendectomy; ll1 - Immunization history:: Flu vaccine is up to date. - Social history:: Smoking status: Patient denies any tobacco usage or history of. ROS: 14:16 Constitutional: Negative for fever, chills, and weight loss, Cardiovascular: Negative jmm for chest pain, palpitations, and edema, Respiratory: Negative for shortness of breath, cough, wheezing, and pleuritic chest pain. 14:16 Abdomen/GI: Positive for abdominal pain. 14:16 All other systems are negative. Exam: 14:16 Constitutional: This is a well developed, well nourished patient who is awake, alert, jmm and in no acute distress. Head/Face: atraumatic. Eyes: EOMI, no conjunctival erythema appreciated ENT: Moist Mucus Membranes Neck: Trachea midline, Supple Chest/axilla: Normal chest wall appearance and motion. Cardiovascular: Regular rate and rhythm. No edema appreciated Respiratory: Normal respirations, no respiratory distress appreciated 14:16 Back: Normal ROM Skin: General appearance color normal MS/ Extremity: Moves all extremities, no obvious deformities appreciated, no edema noted to the lower extremities Neuro: Awake and alert, normal gait Psych: Behavior is normal, Mood is normal, Patient is cooperative and pleasant 14:16 Abdomen/GI: Inspection: abdomen appears normal, Bowel sounds: normal, Palpation: soft, mild abdominal tenderness, in the left upper quadrant. 14:58 ECG was reviewed by the Attending Physician. [facility] Vital Signs: 13:58 BP 148 / 59; Pulse 60; Resp 17; Temp 98.3; Pulse Ox 96% ; Weight 75.75 kg; Height 5 ft. ll1 (152.40 cm); Pain 0/10; 15:24 BP 136 / 51; Pulse 52; Resp 17; Pulse Ox 95% on R/A; tw2 16:10 BP 117 / 57; Pulse 52; Resp 17; Pulse Ox 99% on R/A; tw2 13:58 Body Mass Index 32.61 (75.75 kg, 152.40 cm) ll1 MDM: 14:05 Patient medically screened. [facility] 15:55 Data reviewed: vital signs, nurses notes. Counseling: I had a detailed discussion with [facility] the patient and/or guardian regarding: the historical points, exam findings, and any diagnostic results supporting the discharge/admit diagnosis, lab results, radiology results, the need for outpatient follow up, to return to the emergency department if symptoms worsen or persist or if there are any questions or concerns that arise at home. 15:56 Data reviewed: lab test result(s), radiologic studies, CT scan. ED course: Patient is [facility] alert and non toxic in appearance in the ED. Patient is advised to follow up with pcp for reevaluation. Patient understood and agrees with the plan of care. . 04/06 14:11 Order name: Basic Metabolic Panel; Complete Time: 15:33 [facility] 04/06 14:11 Order name: CBC with Diff; Complete Time: 15:12 [facility] 04/06 14:11 Order name: Hepatic Function; Complete Time: 15:33 [facility] 04/06 14:11 Order name: Lipase; Complete Time: 15:33 [facility] 04/06 14:11 Order name: Troponin (emerg Dept Use Only); Complete Time: 15:33 [facility] 04/06 14:11 Order name: Lactate; Complete Time: 15:16 [facility] 04/06 14:04 Order name: Urine Dipstick-Ancillary (obtain specimen); Complete Time: 15:44 [facility] 04/06 14:11 Order name: IV Saline Lock; Complete Time: 14:46 [facility] 04/06 14:11 Order name: Labs collected and sent; Complete Time: 14:46 [facility] 04/06 14:11 Order name: Procalcitonin; Complete Time: 15:54 [facility] 04/06 14:11 Order name: EKG - Nurse/Tech; Complete Time: 14:53 [facility] 04/06 14:11 Order name: CT Abd/Pelvis - IV Contrast Only; Complete Time: 15:54 [facility] 04/06 15:50 Order name: Urine Dipstick--Ancillary (enter results); Complete Time: 16:14 bd EC:58 Rate is 57 beats/min. Rhythm is regular. QRS Elizabeth is Normal. SD interval is normal. QRS jmm interval is normal. QT interval is normal. No Q waves. T waves are Inverted in leads I, aVL, V1, V2. No ST changes noted. Reviewed by me. Administered Medications: 15:39 Drug: NS 0.9% 500 ml Route: IV; Rate: bolus; Site: left antecubital; tw2 16:14 Follow up: Response: No adverse reaction; IV Status: Completed infusion; IV Intake: tw2 500ml Disposition: 04/07 08:39 Co-signature as Attending Physician, Bridger Blanchard MD I agree with the assessment and kdr plan of care. Disposition: 04/06/20 15:58 Discharged to Home. Impression: Person with feared health complaint in whom no diagnosis is made. - Condition is Stable. - Discharge Instructions: How to Take Your Blood Pressure, [id number]. - Medication Reconciliation Form, Thank You Letter, Antibiotic Education, Prescription Opioid Use form. - Follow up: David Montoya MD; When: 2 - 3 days; Reason: Recheck today's complaints, Continuance of care, Re-evaluation by your physician. Signatures: Dispatcher [employer] EDBridger Dave MD MD kdr Mickail, Joel, PA PA m Flor Vital RN RN tw2 Geni Medrano RN RN 1 Corrections: (The following items were deleted from the chart) 04/06 16:18 15:58 04/06/2020 15:58 Discharged to Home. Impression: Person with feared health tw2 complaint in whom no diagnosis is made. Condition is Stable. Forms are Medication Reconciliation Form, Thank You Letter, Antibiotic Education, Prescription Opioid Use. Follow up: David Montoya; When: 2 - 3 days; Reason: Recheck today's complaints, Continuance of care, Re-evaluation by your physician. susie
[2020-04-06 15:59] LABS: Urine Glucose NEGATIVE (NEG)
[2020-04-06 16:00] LABS: Urine Blood NEGATIVE (NEG); Urine Protein NEGATIVE (NEG)
[2020-04-06 23:30] VITALS: TEMP 98.3
[2020-04-06 23:34] VITALS: BP 117/57; O2SAT 99
--- NOTE | 2020-04-08 06:09 | EKG ---
Test Date: 2020-04-06 Test Time: 14:53:44 Funding Coordinator: TM MEASUREMENT RESULTS: Intervals: Rate: 57 UT: 172 QRSD: 102 QT: 448 QTc: 436 Tyner: P: 99 UT: 172 QRS: -7 T: 140 INTERPRETIVE STATEMENTS: Sinus bradycardia with marked sinus arrhythmia ST & T wave abnormality, consider lateral ischemia Abnormal ECG Compared to ECG 03/03/2019 17:26:43 ST (T wave) deviation now present Possible ischemia now present Sinus rhythm no longer present Left-axis deviation no longer present T-wave abnormality no longer present Electronically Signed On 04-08-20 06:03:38 CAMP GUARD by Keon Mooney
== END 2020-04-06 16:18 | disposition home or self-care (01) ==
LOC: ER 13:50
DX: Z71.1 Person with feared health complaint in whom no diagnosis is made (principal); I10 Essential (primary) hypertension; Z88.1 Allergy status to other antibiotic agents; Z88.5 Allergy status to narcotic agent; Z88.6 Allergy status to analgesic agent
CPT/HCPCS: 93005; 85025; 80048; 36415; 82565; 80076; 83605; 81003; 84484; 83690; 84145; 74177; Q9967; J7040; 96360; 99284

== ENCOUNTER 2020-05-24 19:15 | Observation (INO) | payer OTHER ==
--- OUTSIDE RECORDS SUMMARY | 2020-05-24 19:18 | XMS REPORT | Clinical Summary ---
:1935 Author Organization [facility] Address [address] [place] [address] Care Team Providers Name Role Phone David Montoya MD Primary Care Provider Allergies No Known Active Allergies Medications Medication [...] iac Clearance 09/15/2019 Travel 09/12/2019 Travel after 05/24/2019 Surgical History Surgery Date Site/Laterality Comments APPENDECTOMY [...] Health Maintenance Due Date Last Done Comments COVID-19 VACCINE (#1) 1951 SHINGLES VACCINES (#1) 1986 65+ PNEUMOCOCCAL VACCINE [...] are i n the results section. after 05/24/2019 Results Endomysial antibody titer (09/17/2019 11:41 AM CDT) Endomysial antibody TNP titer [facility] titer Comment: [facility] Test Not Performed. Screening test Negative or Not Det ected. Titer not performed. Specimen Resulting Agency Comment Performing Organization Information: Site ID: EZ Name: [facility], Address: [address] [place] [phone] Director: Simran Torres MD,PhD,MB A Performing Organization Address [facility] Phon e Number [facility] [address] [place], [place] [phone] [employer] [facility] [address] Endomysial antibody screen (IgA) (09/17/2019 11:41 AM CDT) Pathologist Sig nature Endomysial antibody scr NEGATIVE NEGATIVE [facility] (IgA) w/refl to titer [facility] [employer] [facility] [employer] Specimen Resulting Agency Comment Performing Organization Information: Site ID: EZ Name: [facility], Address: [address] [place] [phone] Director: Simran Torres MD,PhD,MB A Performing Organization Address [facility] Phon e Number [facility] [address] [place], [place] [phone] [employer] [id number] Gliadin (Deamidated) Ab (IgG) (09/17/2019 11:41 AM CDT) Pathologist Sig nature Gliadin IgG 1 <20 U [facility] Comment: [facility] Reference Ranges for Gliadin (Deamidated) Antibody (IgG): <20 units Antibody Not Detected > or = 20 units Antibody Detected Specimen Resulting Agency Comment Performing Organization Information: Site ID: EZ Name: [facility], Address: [address] [place] [phone] Director: Simran Torres MD,PhD,MB A Performing Organization Address [facility] Phon e Number [facility] [address] [place] [address] [employer] [id number] Gliadin antibody, IgA (09/17/2019 11:41 AM CDT) Pathologist Sig nature Gliadin IgA 5 <20 U [facility] Comment: [facility] Reference Ranges for Gliadin (Deamidated) Antibody (IgA): <20 units Antibody Not Detected > or = 20 units Antibody Detected Specimen Resulting Agency Comment Performing Organization Information: Site ID: EZ Name: [facility], Address: [address] [place] [phone] Director: Simran Torres MD,PhD,MB A Performing Organization Address [facility] Phon e Number [facility] [address] [place] [address] [employer] [address] Tissue transglutaminase Ab, IgA (09/17/2019 11:41 AM CDT) Tissue transglutaminase <1 U/mL [facility] Ab, IgA Comment: [facility] <4 No Antibody Detected > OR = 4 Antibody Detected Specimen Resulting Agency Comment Performing Organization Information: Site ID: EZ Name: [facility], Address: [address] [place] [phone] Director: Simran Torres MD,PhD,MB A Performing Organization Address City/[facility] Code Phon e Number [facility] [address] [place], [place] [phone] [employer] [address] Tissue transglutaminase Ab, IgG (09/17/2019 11:41 AM CDT) Tissue transglutaminase 5 U/mL [facility] Ab, IgG Comment: [facility] <6 No Antibody Detected > OR = 6 Antibody Detected Specimen Resulting Agency Comment Performing Organization Information: Site ID: EZ Name: [facility], Address: [address] [place] [phone] Director: Simran Torres MD,PhD,MB A Performing Organization Address [facility] Phon e Number [facility] [address] [place], [place] [phone] [employer] [facility] [employer] [address] Vitamin D 25 hydroxy level (09/17/2019 11:41 AM CDT) Vitamin D, 28 (L) 30 - 100 [facility] 25-hydroxy Comment: ng/mL [place] Vitamin D Status 25-OH Vitamin D: Deficiency: <20 ng/mL Insufficiency: 20 - 29 ng/mL Optimal: > or = 30 ng/mL For 25-OH Vitamin D testing on patients on D2-supplementation and patients for whom quantitation of D2 and D3 fractions is required, the Quest[facility]ure[facility](T M) 25-OH VIT D, (D2,D3), LC/MS/MS is recommended: order code 97685 (patients >2yrs). For more information on this test, go to: http://education.Libox.Savedaily/faq/ASM618 (This link is being provided for informational/educational purposes only.) Specimen Blood Resulting Agency Comment Performing Organization Information: Site ID: RGA Name: [facility] Address: [address] [place] [phone] Director: Ruiz Wallis Performing Organization Address City/[facility] Phon e Number [employer] [address] [address] Sedimentation rate (09/17/2019 11:41 AM CDT) Pathologist Sig nature Sedimentation rate 29 < OR = 30 mm/h [facility] [employer] [place] Specimen Blood Resulting Agency Comment Performing Organization Information: Site ID: RGA Name: [facility] Address: [address] [place] [phone] Director: Ruiz Wallis Performing Organization Address City/[facility] Phon e Number LEISA [facility] [place] [phone] CBC with platelet and differential (09/17/2019 11:41 AM CDT) WBC 5.4 3.8 - 10.8 [facility] Thousand/uL [place] RBC 4.00 3.80 - 5.10 [facility] Million/uL [place] HGB 11.8 11.7 - 15.5 [facility] g/dL [place] HCT 34.9 (L) 35.0 - 45.0 % [facility] [place] MCV 87.3 80.0 - 100.0 fL [facility] [place] MCH 29.5 27.0 - 33.0 pg [facility] [place] MCHC 33.8 32.0 - 36.0 [facility] g/dL [place] RDW 13.4 11.0 - 15.0 % [facility] [place] Platelet count 228 140 - 400 [facility] Thousand/uL [place] MPV 11.5 7.5 - 12.5 fL [facility] [place] Neutrophils, absolute 3,456 1,500 - 7,800 [facility] cells/uL [place] Lymphocytes, absolute 1,296 850 - 3,900 [facility] cells/uL [place] Monocytes, absolute 529 200 - 950 [facility] cells/uL [place] Eosinophils, absolute 81 15 - 500 [facility] cells/uL [place] Basophils, absolute 38 0 - 200 [facility] cells/uL [place] Neutrophils 64 % [facility] [place] Lymphocytes 24.0 % [facility] [place] Monocytes 9.8 % [facility] [place] Eosinophils 1.5 % [facility] [place] Basophils + RC 0.7 % [facility] [place] Specimen Blood Resulting Agency Comment Performing Organization Information: Site ID: RGA Name: [facility] Address: [address] [place] [phone] Director: Ruiz Wallis Performing Organization Address City/[facility] Phon e Number [facility] [address] [phone] Lipase level (09/17/2019 11:41 AM CDT) Pathologist Sig nature Lipase 63 (H) 7 - 60 U/L [facility] [place] Specimen Blood Resulting Agency Comment Performing Organization Information: Site ID: RGA Name: [facility] [facility] Address: [address] [place] [address] Director: Ruiz Wallis Performing Organization Address [facility] Phon e Number [facility] [place] [address] [place] [address] Immunoglobulin A (09/17/2019 11:41 AM CDT) Pathologist Sig nature IgA 384 (H) 70 - 320 mg/dL [facility] Specimen Resulting Agency Comment Performing Organization Information: Site ID: EZ Name: [facility], Address: [address] [place] [phone] Director: Simran Torres MD,PhD,MB A Performing Organization Address City/[facility] Phon e Number [facility] [address] [place] [address] [employer] [facility] [employer] [address] Comprehensive metabolic panel (09/17/2019 11:41 AM CDT) Glucose 134 (H) 65 - 99 [facility] Comment: mg/dL [place] Fasting reference interval For someone without known diabetes, a glucose value >125 mg/dL indicates that they may have diabetes and this should be confirmed with a follow-up test. BUN 12 7 - 25 mg/dL [facility] [place] Creatinine 0.68 0.60 - 0.88 [facility] Comment: mg/dL [place] For patients >49 years of age, the reference limit for Creatinine is approximately 13% higher for people identified as -Lebanese. EGFR Non-Afr. 81 > OR = 60 [facility] Lebanese mL/min/1.73m [place] 2 EGFR 94 > OR = 60 [facility] Lebanese mL/min/1.73m [place] 2 BUN/creatinine NOT APPLICABLE 6 - 22 [facility] ratio (calc) [place] Sodium 132 (L) 135 - 146 [facility] mmol/L [place] Potassium 4.4 3.5 - 5.3 [facility] mmol/L [place] Chloride 96 (L) 98 - 110 [facility] mmol/L [place] CO2 27 20 - 32 [facility] mmol/L [place] Calcium 9.7 8.6 - 10.4 [facility] mg/dL [place] Protein 7.2 6.1 - 8.1 [facility] g/dL [place] Albumin, S 4.1 3.6 - 5.1 [facility] g/dL [place] Globulin, total 3.1 1.9 - 3.7 [facility] g/dL (calc) [place] Albumin/globulin 1.3 1.0 - 2.5 [facility] ratio (calc) [place] Total bilirubin 0.3 0.2 - 1.2 [facility] mg/dL [place] Alkaline 39 37 - 153 U/L [facility] phosphatase [place] AST 28 10 - 35 U/L [facility] [place] ALT 24 6 - 29 U/L [facility] [place] Specimen Blood Resulting Agency Comment Performing Organization Information: Site ID: RGA [facility]: [facility] Address: [address] [place] [phone] Director: Ruiz Wallis Performing Organization Address City/State/ZIP Code Phon e Number [facility] [place] [address] [place] [phone] after 05/24/2019 Insurance Payer Benefit Plan / Subscriber ID Effective Dates Phone Addre ss Type Group [employer] [id number] 2019-RUSTO MCR ADV t Advance Directives For more information, please contact: [phone] Type Date Recorded 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
--- OUTSIDE RECORDS SUMMARY | 2020-05-24 19:18 | XMS REPORT | Continuity of Care Document ---
:1935 Author Organization [facility] t Address [address] [place] [address] Care Team Providers Name Role Phone Lindsay CARR, David Montemayor Primary Care Physician [phone] Elin CARR Attending Clinician Talia ROD Attending Clinician Unavailable Payers Payer Name Policy Type Policy Effective Date Expiration Source Number Date CIG[employer] [id number] [facility] [id number] 2019 -PresentHMO Problems Condition Condition Condition Status Onset Resolution Last Treating Co mments Source Name Details Category Date Date Treatment Clinician Date Rectal Rectal Disease Active [place] bleeding bleeding 09-14 Method i 00:00: st [...] Source Natural father Prostate cancer [place] [employer] Natural sister Breast cancer [facility] Social History Social Habit Start Date Stop Date Quantity Comments Source History [facility] Meth odist Alcohol Std Drinks History [facility] Alcohol Binge Sex Assigned At [facility] ethodist Tobacco use and 2019-09-15 2019-09-15 Never used [facility] ethodist exposure 00:00:00 00:00:00 Alcohol intake 2019-09-15 2019-09-15 Lifetime [facility] 00:00:00 00:00:00 non-drinker (finding) History SDOH 2019-09-15 2019-09-15 1 [facility] Alcohol Frequency 00:00:00 00:00:00 Smoking Status Start Date Stop Date Source Never smoker [facility] Methodis t Medications Ordered Filled Start Stop Current Ordering Indication Dosage Frequency Signature Comments Components Source Medication Medication Date Date Medication? Clinician (SIG) Name Name famotidine 2020-0 Yes 20mg Q.5D Take 20 mg [place] (PEPCID) 20 09-14 by mouth 2 Me thodi MG tablet 11:38: (two) st 12 times a day. ranitidine 2020-0 2020- No Q.5D Take by Branden stojulaina (ZANTAC) 15 09-14 mouth 2 Meth richa mg/mL syrup 11:37: 00:00 (two) st 49 :00 times a day. metroNIDAZO 2020-0 Yes 250mg Q.[id number] Take 250 [facility] LE (FLAGYL) 09-14 [id number] mg by M ethodi 250 MG 09:00: 3D mouth 3 st tablet 02 (three) times a day. rivaroxaban 2020-0 Yes 20mg Take 20 mg [place] (XARELTO) 09-14 by mouth. Metho di 20 mg 08:59: st tablet 57 atorvastati 2020-0 Yes 10mg QD Take 10 mg [facility] n (LIPITOR) 09-14 by mouth Meth richa 10 MG 08:59: daily. st tablet 57 lisinopriL 2020-0 Yes QD Take by [place] 20 mg 09-14 mouth Methodi tablet 1 08:59: daily. st tablet, 57 hydroCHLORO thiazide 25 MG tablet 0.5 tablet metoprolol 2020-0 Yes 50mg Q.5D Take 50 mg [place] tartrate -27 by mouth 2 Metho di (LOPRESSOR) 08:59: (two) st 50 mg 57 times a tablet day. metFORMIN 2020-0 Yes 500mg Q.5D Take 500 Branden ston (GLUCOPHAGE 4-27 mg by Methodi ) 500 mg 08:59: mouth 2 st tablet 57 (two) times a day with meals. hydrOXYzine 2020-0 Yes 10mg Q.93758341 Take 10 mg [place] (ATARAX) 10 09-14 [id number] by mouth 3 Methodi MG tablet 08:59: 3D (three) st 57 times a day as needed for itching. Procedures Procedure Date / Time Performing Clinician Source Performed CBC WITH PLATELET AND 2019-09-17 11:41:00 Natalee Worthington DIFFERENTIAL Lisa SEDIMENTATION RATE 2019-09-17 11:41:00 Kody Worthington M ethodist Lisa COMPREHENSIVE METABOLIC 2019-09-17 11:41:00 Janet Worthington PANEL Lisa LIPASE LEVEL 2019-09-17 11:41:00 Kody Worthington Meth odist Lisa VITAMIN D 25 HYDROXY LEVEL 2019-09-17 11:41:00 Meagan Worthington TISSUE TRANSGLUTAMINASE AB, 2019-09-17 11:41:00 Kody Wortihngton IGA Lisa ENDOMYSIAL ANTIBODY SCREEN 2019-09-17 11:41:00 [...] Test 00:00:00 [code = SHINGLES VACCINES (#1)] Future Scheduled 1952 COVID-19 VACCINE (#1) Dioni De La Rosa Test 00:00:00 [code = COVID-19 VACCINE (#1)] Encounters Start End Encounter Admission Attending Care Care Encounter Source Date/Time Date/Time Type Type Clinicians Facility Department ID 2019-09-15 2019-09-15 Outpatient [facility] [id number] Kody 00:00:00 00:00:00 LISA DUENAS 219 Met samuel murdock Results Test Description Test Time Test Comments Results Result Comments Source Comprehensive metabolic panel 2019-09-22 19:21:00 Test Item Value Reference Range Interpretation Comme nts Glucose (test code = 134 mg/dL 65-99 H Fasting 2344-7) reference inter evita For someone without known diabetes, a glu cosevalue >125 mg/dL cricket cates that they may havedi abetes and this should be confirmed with afollow-up test. BUN (test code = 12 mg/dL 12-124-0) Creatinine (test code = 0.68 mg/dL 0.6-0.88 For patients >49 years of 2160-0) age, the refere nce limitfor Creati nine is approximately 1 3% higher for peopleident ified as -Simin n. EGFR Non-Afr. Senegalese 81 > OR = 60 (test code = 2775) mL/min/1.73m2 EGFR 94 > OR = 60 (test code = 42775-2) mL/min/1.73m2 BUN/creatinine ratio NOT APPLICABLE (calc) (test code = 3097-3) Sodium (test code = 132 mmol/L 135-146 L 2951-2) Potassium (test code = 4.4 mmol/L 3.5-5.3 2823-3) Chloride (test code = 96 mmol/L 98-110 L 2074-0) CO2 (test code = 27 mmol/L -32 2027-9) Calcium (test code = 9.7 mg/dL 8.6-10.4 40308-3) Protein (test code = 7.2 g/dL 6.1-8.1 2885-2) Albumin, S (test code = 4.1 g/dL 3.6-5.1 1750-7) Globulin, total (test 3.1 1.9- 3.7 g/dL code = 91938-3) (calc) Albumin/globulin ratio 1.3 1.0- 2.5 (test code = 1759-0) (calc) Total bilirubin (test 0.3 mg/dL 0.2-1.2 code = 1974-2) Alkaline phosphatase 39 U/L 37-153 (test code = 6768-6) AST (test code = 28 U/L 10-35 1920-8) ALT (test code = 24 U/L 6-29 1742-6) RAC (test code = RAC) Performing Organization Information: Site ID: RGA Name: [facility] Address: [address] [place] [phone] Director: Ruiz Wallis Lab Interpretation Abnormal (test code = 89089-2) [place] MethodistImmunoglobulin [id number] 19:21:00 Test Item Value Reference Range Interpretation Comments IgA (test code = 2458-8) 384 mg/dL 70-320 H RAC (test code = RAC) Performing Organization Information: Site ID: EZ Name: [employer], Address: [address] [place] [phone] Director: Simran Torres MD,PhD,GREGORIO Lab Interpretation (test Abnormal code = 44955-0) [place] MethodistLipase [id number] 19:21:00 Test Item Value Reference Range Interpretation Comments Lipase (test code = 63 U/L 7-60 H 3040-3) RAC (test code = RAC) Performing Organization Information: Site ID: RGA Name: [facility] Address: [address] [place] [phone] Director: Ruiz Wallis Lab Interpretation (test Abnormal code = 93667-1) [place] MethodistCB with platelet and [id number] 19:21:00 Test Item Value Reference Range Interpretation [...] = RAC) Performing Organization Information: Site ID: A Name: [facility] Address: [address] [place] [phone] Director: Ruiz Wallis Lab Interpretation Abnormal (test code = 40646-4) [place] MethodistSedimentation [id number] 19:21:00 Test Item Value Reference Range Interpretation Comments Sedimentation rate 29 mm/h < OR = 30 (test code = 4537-7) RAC (test code = RAC) Performing Organization Information: Site ID: A Name: [facility] Address: [address] [place] [phone] Director: Ruiz Wallis [place] MethodistVitamin D 25 hydroxy [id number] 19:21:00 Test Item Value Reference Range Interpretation Comments Vitamin D, 28 ng/mL 30-100 L Vitamin D Statu s 25-hydroxy (test 25-O H code = 1988-) Vitamin D: Deficiency: <2 0 ng/mLInsufficie nc [...] information on this test, go to:[email or web address] (This link is being provided for informational/e du cational purpos es only.) RAC (test code = Performing RAC) Organization Information: Site ID: RGA Name: [facility] Address: [address] [place] [phone] Director: Ruiz Wallis Lab Interpretation Abnormal (test code = 15447-5) [place] MethodistTissue transglutaminase Ab, [id number] 19:21:00 Test Item Value Reference Range Interpretation Comments Tissue transglutaminase 5 U/mL <6 No Ab, IgG (test code = Antibod y 10782-3) Detected> OR = 6 Antibody Detected RAC (test code = RAC) Performing Organization Information: Site ID: EZ Name: [employer] [facility], Address: [address] [place], [place] [phone] Director: Simran Torres MD,PhD,GREGORIO [place] MethodistTissue transglutaminase Ab, [id number] 19:21:00 Test Item Value Reference Range Interpretation Comments Tissue transglutaminase <1 U/mL <4 No Ab, IgA (test code = Antibod y 11023-5) Detected> OR = 4 Antibody Detected RAC (test code = RAC) Performing Organization Information: Site ID: EZ Name: [employer] [facility], Address: [address] [place], [place] [address] Director: Simran Torres MD,PhD,GREGORIO [place] MethodistGliadin antibody, [id number] 19:21:00 Test Item Value Reference Range Interpretation Comments Gliadin IgA 5 U <20 Reference Rang es (test code = for Gliadin 39157-3) (Deamidated) Antibody (IgA): <20 units Antibody Not Detected > or = 20 units Antibody Detect ed RAC (test code = Performing RAC) Organization Information: Site ID: EZ Name: [employer] [facility], Address: [address] [place] [phone] Director: Simran Torres MD,PhD,GREGORIO De La RosaGliadin (Deamidated) Ab (IgG)2019-09-22 19:21:00 Test Item Value Reference Range Interpretation Comments Gliadin IgG 1 U <20 Reference Rang es (test code = for Gliadin 38281-7) (Deamidated) Antibody (IgG): <20 units Antibody Not Detected > or = 20 units Antibody Detect ed RAC (test code = Performing RAC) Organization Information: Site ID: EZ Name: [employer] [facility], Address: [address] [place] [phone] Director: Simran Torres MD,PhD,GREGORIOKin Sarabiaomysial antibody screen (IgA)2019-09-22 19:21:00 Test Item Value Reference Range Interpretation Comments Endomysial antibody NEGATIVE NEGATIVE scr (IgA) w/refl to titer (test code = 61393-9) RAC (test code = RAC) Performing Organization Information: Site ID: EZ Name: [employer] [facility], Address: [address] [place] [phone] Director: Simran Torres MD,PhD,GREGORIOKin De La RosaEndomysial antibody [id number] 19:21:00 Test Item Value Reference Range Interpretation Comments Endomysial TNP titer Test Not antibody titer Performed. (test code = Screening test 29298-4) Negative or Not Detected.Titer not performed. RAC (test code = Performing RAC) Organization Information: Site ID: EZ Name: [employer] [facility], Address: [address] [place] [phone] Director: Simran Torres MD,PhD,GREGORIO De La Rosa
[2020-05-24 23:28] LABS: Absolute Lymphocytes (CBC) 2.3 K/uL (0.7-4.9); Basophils % 0.3 % (0-1.3); Hematocrit 35.1 % (36.0-45.0); Lymphocytes % 24.7 % (15.3-44.8)
[2020-05-24 23:33] LABS: ALT/SGPT 21 U/L (12-78); AST/SGOT 15 U/L (15-37); Albumin 3.7 g/dL (3.4-5.0); Alkaline Phosphatase 46 U/L (45-117); BUN Blood Urea Nitrogen 13 mg/dL (7-18); Bicarbonate 29 mmol/L (21-32); Bilirubin Direct 0.1 mg/dL (0-0.2); Bilirubin Total 0.5 mg/dL (0.2-1.0); Glucose Level 114 mg/dL (74-106); Magnesium 1.9 mg/dL (1.8-2.4); NT PRO-BNP 388 pg/mL (<450); Potassium 4.1 mmol/L (3.5-5.1); Protein, Total 7.4 g/dL (6.4-8.2); Sodium Level 130 mmol/L (136-145); Troponin (Emerg Dept Use Only) < 0.02 ng/mL (0.0-0.045)
[2020-05-24 23:37] LABS: Protime INR 2.91
--- NOTE | 2020-05-24 23:48 | ER ---
Nurse's Notes [facility] Name: Diandra Shepard Age: 85 yrs Sex: Female : 1935 Arrival Date: 05/24/2020 Time: 19:21 Bed 6 Private MD: David Montoya Diagnosis: Chest pain, unspecified Presentation: 05/24 19:46 Chief complaint: Patient states: HBP at 1800 179/94. Denies headache, dizziness. ca1 Reports chest pressure on the L side x 1 week, last night was worst. Coronavirus screen: Client denies travel out of the [place] in the last 14 days. At this time, the client does not indicate any symptoms associated with coronavirus-19. Ebola Screen: Patient negative for fever greater than or equal to 101.5 degrees Fahrenheit, and additional compatible Ebola Virus Disease symptoms Patient denies exposure to infectious person. Patient denies travel to an Ebola-affected area in the 21 days before illness onset. No symptoms or risks identified at this time. Initial Sepsis Screen: Does the patient meet any 2 criteria? No. Patient's initial sepsis screen is negative. Does the patient have a suspected source of infection? No. Patient's initial sepsis screen is negative. Risk Assessment: Do you want to hurt yourself or someone else? Patient reports no desire to harm self or others. Onset of symptoms was May 24, 2020. 19:46 Method Of Arrival: Wheelchair ca1 19:46 Acuity: VANESSA 2 ca1 Historical: - Allergies: 19:50 Codeine; ca1 19:50 Tylenol; ca1 19:50 Levaquin; ca1 - Home Meds: 05/25 00:32 atorvastatin 10 mg Oral tab 1 tab once daily [Active]; Xarelto 20 mg Oral tab 1 tab jb4 once daily [Active]; lisinopril-hydrochlorothiazide 20-12.5 mg Oral tab 1 tab once daily [Active]; lisinopril 20 mg Oral tab 1 tab once daily [Active]; metoprolol tartrate 50 mg Oral tab 1 tab 2 times per day [Active]; Bactrim DS 800-160 mg Oral tab 1 tab every 12 hours [Active]; loperamide 2 mg Oral tab 1 tabs daily [Active]; zolpidem 5 mg Oral tab 1 tab once daily [Active]; - PMHx: 05/24 19:50 Hyperlipidemia; Hypertension; ca1 - PSHx: 19:50 Cholecystectomy; Appendectomy; ca1 - Immunization history:: Adult Immunizations up to date, Pneumococcal vaccine is up to date, Flu vaccine is up to date. - Social history:: Smoking status: Patient denies any tobacco usage or history of. Screenin:00 Abuse screen: Denies threats or abuse. Nutritional screening: No deficits noted. jb4 Tuberculosis screening: No symptoms or risk factors identified. Fall Risk None identified. Assessment: 22:00 General: Appears in no apparent distress. comfortable, Behavior is calm, cooperative, jb4 appropriate for age. Pain: Complains of pain in epigastric area Pain does not radiate. Pain currently is 4 out of 10 on a pain scale. Quality of pain is described as burning. Neuro: Level of Consciousness is awake, alert, obeys commands. Cardiovascular: Patient's skin is warm and dry. Respiratory: Airway is patent Respiratory effort is even, unlabored, Respiratory pattern is regular, symmetrical. GI: Abdomen is obese, Reports epigastric pain. : No signs and/or symptoms were reported regarding the genitourinary system. EENT: No signs and/or symptoms were reported regarding the EENT system. Derm: Skin is intact, Skin is pink, warm \T\ dry. Musculoskeletal: Circulation, motion, and sensation intact. Range of motion: intact in all extremities. 23:00 Reassessment: Patient appears in no apparent distress at this time. Patient and/or jb4 family updated on plan of care and expected duration. Pain level reassessed. Patient is alert, oriented x 3, equal unlabored respirations, skin warm/dry/pink. 05/25 00:00 Reassessment: Patient appears in no apparent distress at this time. Patient and/or jb4 family updated on plan of care and expected duration. Pain level reassessed. Patient is alert, oriented x 3, equal unlabored respirations, skin warm/dry/pink. 00:03 Reassessment: Provider okay'ed pt to take her home sleep aid medication. jb4 01:00 Reassessment: Patient appears in no apparent distress at this time. Patient and/or jb4 family updated on plan of care and expected duration. Pain level reassessed. Patient is alert, oriented x 3, equal unlabored respirations, skin warm/dry/pink. 01:30 Reassessment: Patient appears in no apparent distress at this time. Patient and/or jb4 family updated on plan of care and expected duration. Pain level reassessed. Patient is alert, oriented x 3, equal unlabored respirations, skin warm/dry/pink. Vital Signs: 05/24 19:46 BP 142 / 68; Pulse 52; Resp 16 S; Temp 98; Pulse Ox 99% on R/A; Weight 76.2 kg (R); ca1 Height 5 ft. 0 in. (152.40 cm); Pain 6/10; 22:00 BP 177 / 73; Pulse 53; Resp 16; Pulse Ox 98% on R/A; jb4 23:25 BP 143 / 60; Pulse 53; Resp 14; Pulse Ox 100% on R/A; rv 05/25 00:30 BP 158 / 58; Pulse 56; Resp 16; Pulse Ox 98% on R/A; jb4 01:30 BP 126 / 59; Pulse 52; Resp 16; Pulse Ox 100% on R/A; jb4 05/24 19:46 Body Mass Index 32.81 (76.20 kg, 152.40 cm) ca1 ED Course: 05/24 19:21 Patient arrived in ED. es 19:21 David Montoya MD is Private Physician. es 19:49 Triage completed. ca1 19:50 Arm band placed on right wrist. ca1 21:55 Mukesh Yancey NP is PHCP. pm1 21:55 Landry Carter MD is Attending Physician. pm1 22:00 Patient has correct armband on for positive identification. Bed in low position. Call jb4 light in reach. Side rails up X 1. classroom monitor on. Pulse ox on. NIBP on. 22:18 Juan Strickland RN is Primary Nurse. rv 22:45 Inserted saline lock: 20 gauge in right forearm, using aseptic technique. Blood rv collected. 22:45 Initial lab(s) drawn, by ne, sent to lab. rv 23:48 David Montoya MD is Hospitalizing Provider. pm1 05/25 02:03 No provider procedures requiring assistance completed. Patient admitted, IV remains in jb4 place. Administered Medications: 00:28 Not Given (Patient Refused): Aspirin 325 mg PO once jb4 Outcome: 05/24 23:48 Decision to Hospitalize by Provider. pm1 05/25 02:03 Admitted to Med/surg accompanied by tech, via stretcher, room 203, with chart, Report jb4 called to KIAN Bhagat Condition: stable Discharge instructions given to patient, Instructed on the need for admit, Demonstrated understanding of instructions. 02:03 Patient left the ED. jb4 Signatures: Ermelinda Keyes Patrick, ELECTRICAL TEST TECHNICIAN ELECTRICAL TEST TECHNICIAN pm1 Alan Schuler, RN RN jb4 Juan Strickland, RN RN rv AcShannan tiwari RN RN ca1
--- NOTE | 2020-05-24 23:48 | EDPHYS ---
Physician Documentation [facility] Name: Diandra Shepard Age: 85 yrs Sex: Female : 1935 Arrival Date: 05/24/2020 Time: 19:21 Bed 6 Private MD: David Montoya ED Physician Landry Carter HPI: 05/24 21:59 This 85 yrs old Female presents to ER via Wheelchair with complaints of High pm1 Blood Pressure. 21:59 The patient has elevated blood pressure and discovered this at home, with a home pm1 device. Onset: The symptoms/episode began/occurred 1 week(s) ago. Modifying factors: The symptoms are aggravated by nothing, The symptoms are alleviated by nothing. Associated signs and symptoms: Pertinent positives: chest pain, diarrhea x 2 onset last night with epigastric pain, Pertinent negatives: nausea, vomiting, shortness of breath. Severity of symptoms: At its worst the blood pressure was 170 mm Hg, in the emergency department the blood pressure is unchanged. The patient has been recently seen by a physician: the patient's primary care provider, with similar presenting complaints, instructed to take additional BP medications as needed for elevated blood pressure. Historical: - Allergies: 19:50 Codeine; ca1 19:50 Tylenol; ca1 19:50 Levaquin; ca1 - Home Meds: 05/25 00:32 atorvastatin 10 mg Oral tab 1 tab once daily [Active]; Xarelto 20 mg Oral tab 1 tab jb4 once daily [Active]; lisinopril-hydrochlorothiazide 20-12.5 mg Oral tab 1 tab once daily [Active]; lisinopril 20 mg Oral tab 1 tab once daily [Active]; metoprolol tartrate 50 mg Oral tab 1 tab 2 times per day [Active]; Bactrim DS 800-160 mg Oral tab 1 tab every 12 hours [Active]; loperamide 2 mg Oral tab 1 tabs daily [Active]; zolpidem 5 mg Oral tab 1 tab once daily [Active]; - PMHx: 05/24 19:50 Hyperlipidemia; Hypertension; ca1 - PSHx: 19:50 Cholecystectomy; Appendectomy; ca1 - Immunization history:: Adult Immunizations up to date, Pneumococcal vaccine is up to date, Flu vaccine is up to date. - Social history:: Smoking status: Patient denies any tobacco usage or history of. ROS: 21:59 Constitutional: Negative for fever, chills, and weight loss, Neck: Negative for injury, pm1 pain, and swelling. 21:59 Respiratory: Negative for shortness of breath, cough, wheezing, and pleuritic chest pain. 21:59 Back: Negative for injury and pain, : Negative for injury, bleeding, discharge, and swelling, MS/Extremity: Negative for injury and deformity, Skin: Negative for injury, rash, and discoloration, Neuro: Negative for headache, weakness, numbness, tingling, and seizure. 21:59 Cardiovascular: Positive for chest pain, Negative for edema, palpitations. 21:59 Abdomen/GI: Positive for abdominal pain, diarrhea, of the epigastric area, Negative for nausea, vomiting, constipation. Exam: 20:01 ECG was reviewed by the Attending Physician. rn 21:59 Constitutional: This is a well developed, well nourished patient who is awake, alert, pm1 and in no acute distress. Head/Face: Normocephalic, atraumatic. 21:59 Back: No spinal tenderness. No costovertebral tenderness. Full range of motion. Skin: Warm, dry with normal turgor. Normal color with no rashes, no lesions, and no evidence of cellulitis. MS/ Extremity: Pulses equal, no cyanosis. Neurovascular intact. Full, normal range of motion. 21:59 Cardiovascular: Rate: normal, Rhythm: regular, Pulses: no pulse deficits are appreciated, Edema: is not appreciated. 21:59 Respiratory: Exam negative for acute changes, respiratory distress, shortness of breath, Breath sounds: are clear throughout. 21:59 Abdomen/GI: Inspection: abdomen appears normal, Palpation: abdomen is soft and non-tender, in all quadrants, mass, is not appreciated, rebound tenderness, is not appreciated. 21:59 Neuro: Exam negative for acute changes, Orientation: is normal, Mentation: is normal, Motor: is normal, moves all fours. Vital Signs: 19:46 BP 142 / 68; Pulse 52; Resp 16 S; Temp 98; Pulse Ox 99% on R/A; Weight 76.2 kg (R); ca1 Height 5 ft. 0 in. (152.40 cm); Pain 6/10; 22:00 BP 177 / 73; Pulse 53; Resp 16; Pulse Ox 98% on R/A; jb4 23:25 BP 143 / 60; Pulse 53; Resp 14; Pulse Ox 100% on R/A; rv 05/25 00:30 BP 158 / 58; Pulse 56; Resp 16; Pulse Ox 98% on R/A; jb4 01:30 BP 126 / 59; Pulse 52; Resp 16; Pulse Ox 100% on R/A; jb4 05/24 19:46 Body Mass Index 32.81 (76.20 kg, 152.40 cm) ca1 MDM: 05/24 21:56 Patient medically screened. pm1 23:46 Data reviewed: vital signs. Data interpreted: Pulse oximetry: on room air is 100 %. pm1 Interpretation: normal. Counseling: I had a detailed discussion with the patient and/or guardian regarding: the historical points, exam findings, and any diagnostic results supporting the discharge/admit diagnosis, lab results, radiology results, the need for further work-up and treatment in the hospital. 23:46 ED course: Patient with EKG changes from prior EKG on record. Therefore will admit pm1 patient for chest pain rule out. 05/25 00:30 Physician consultation: David Montoya MD was contacted at 00:31, regarding admission, pm1 patient's condition, Repeat troponins and follow up Cardiology outpatient if serial troponins are negative. 00:38 ED course: Patient not given aspirin. Patient takes Xarelto 20 mg daily. Last dose pm1 taken by patient at 1800. 05/24 21:58 Order name: Basic Metabolic Panel pm1 05/24 21:58 Order name: CBC with Diff pm1 05/24 21:58 Order name: LFT's pm05/24 21:58 Order name: Magnesium pm05/24 21:58 Order name: NT PRO-BNP pm1 05/24 21:58 Order name: PT-INR pm1 05/24 21:58 Order name: Troponin (emerg Dept Use Only) pm1 05/24 22:19 Order name: Flu pm05/24 22:19 Order name: COVID-19 pm1 05/24 23:07 Order name: Basic Metabolic Panel; Complete Time: 23:38 EDMS 05/24 23:07 Order name: Liver (Hepatic) Function; Complete Time: 23:38 EDMS 05/24 23:07 Order name: Troponin (Emerg Dept Use Only); Complete Time: 23:38 EDMS 05/24 23:07 Order name: NT PRO-BNP; Complete Time: 23:38 EDMS 05/24 23:07 Order name: Magnesium; Complete Time: 23:38 EDMS 05/24 20:07 Order name: EKG; Complete Time: 20:08 ca1 05/24 20:07 Order name: EKG - Nurse/Tech; Complete Time: 20:07 ca1 05/24 21:58 Order name: XRAY Chest (1 view) pm1 05/24 21:58 Order name: Cardiac monitoring; Complete Time: 23:22 pm1 05/24 21:58 Order name: IV Saline Lock; Complete Time: 23:23 pm1 05/24 21:58 Order name: Labs collected and sent; Complete Time: 23:23 pm1 05/24 21:58 Order name: O2 Per Protocol; Complete Time: 23:23 pm1 05/24 21:58 Order name: O2 Sat Monitoring; Complete Time: 23:23 pm1 05/24 23:07 Order name: CBC with Automated Diff; Complete Time: 23:38 EDMS 05/24 23:07 Order name: Protime (+INR); Complete Time: 23:38 EDMS 05/24 23:48 Order name: Chest Single View EDMS 05/25 01:26 Order name: COVID-19/FLU A+B EDMS EC/04 20:01 Rate is 50 beats/min. Rhythm is regular. Left axis deviation noted. QRS is positive in rn lead I and negative in lead aVF. [place] interval is normal. QRS interval is normal. QT interval is normal. No Q waves. T waves are Inverted in leads I, aVL, V2, V3, V4, V5, V6. No ST changes noted. Clinical impression: Sinus Bradycardia with nonspecific lateral t wave inversions. Interpreted by me. Reviewed by me. Administered Medications: 05/25 00:28 Not Given (Patient Refused): Aspirin 325 mg PO once jb4 Disposition: 03:45 Co-signature as Attending Physician, Landry Carter MD. rn Disposition: 05/24/20 23:48 Hospitalization ordered by David Montoya for Observation. Preliminary diagnosis is Chest pain, unspecified. - Bed requested for Telemetry/MedSurg (observation). - Status is Observation. jb4 - Condition is Stable. - Problem is new. - Symptoms have improved. Signatures: Dispatcher [employer] EDMS Melissa Varela, RN RN Landry Carter MD MD rn Attema, Lee, MANAGER SECURITY AND SAFETY-C MANAGER SECURITY AND SAFETY-Cla1 Mukesh Yancey, AIR CONDITIONING TECHNICIAN AIR CONDITIONING TECHNICIAN pm1 Alan Schuler, RN RN jb4 Shannan Smith RN RN ca1 Corrections: (The following items were deleted from the chart) :05/24 23:48 Hospitalization Ordered by David Montoya MD for Observation. Preliminary diagnosis is Chest pain, unspecified. Bed requested for Telemetry/MedSurg (observation). Status is Observation. Condition is Stable. Problem is new. Symptoms have improved. pm1 05/25 02:03 01:05/24/2020 23:48 Hospitalization Ordered by David Montoya MD for Observation. jb4 Preliminary diagnosis is Chest pain, unspecified. Bed requested for Telemetry/MedSurg (observation). Status is Observation. Condition is Stable. Problem is new. Symptoms have improved. mw
[2020-05-25] MEDS ORDERED: ASPIRIN 325 MG TAB ONE (00:22)
[2020-05-25 01:25] LABS: SARS-COV-2 RT PCR NEGATIVE (NEGATIVE)
[2020-05-25] MEDS ORDERED: ONDANSETRON 4 MG/2 ML VIAL IV PRN (02:21)
[2020-05-25] MEDS ORDERED: MORPHINE 4 MG/ML SYR IV PRN (02:21)
[2020-05-25 02:24] VITALS: BMI 30.4
[2020-05-25 04:28] LABS: Absolute Lymphocytes (CBC) 2.3 K/uL (0.7-4.9); Basophils % 0.2 % (0-1.3); Hematocrit 34.9 % (36.0-45.0); Lymphocytes % 31.7 % (15.3-44.8); MPV 9.8 fL (7.6-11.3); RBC Red Blood Cell Count 3.93 M/uL (3.86-4.86)
--- NOTE | 2020-05-25 06:52 | RAD REPORT ---
EXAM DESCRIPTION: Jesus Manuel Single View05/25/2020 12:14 am CLINICAL HISTORY: Chest pain COMPARISON: 2018 FINDINGS: The lungs appear clear of acute infiltrate. The heart is mildly to moderately enlarged. R ight paratracheal opacity probably tortuous brachiocephalic vessels IMPRESSION: No acute abnormalities displayed
--- NOTE | 2020-05-25 08:18 | EKG ---
Test Date: 2020-05-24 Test Time: 19:56:20 Pillar Worker: LEDA MEASUREMENT RESULTS: Intervals: Rate: 50 MN: 184 QRSD: 98 QT: 478 QTc: 435 [place]: P: 55 MN: 184 QRS: -22 T: 129 INTERPRETIVE STATEMENTS: Sinus bradycardia ST & T wave abnormality, consider anterolateral ischemia Abnormal ECG Compared to ECG 04/06/2020 14:53:44 Sinus arrhythmia no longer present ST (T wave) deviation still present Possible ischemia still present Electronically Signed On 05-25-20 08:17:23 PROCESS PUMPER by Keon Mooney
[2020-05-25 08:30] VITALS: BP 142/65; TEMP 97.9
[2020-05-25] MEDS: RIVAROXABAN 10 MG TABLET PO SCH ×2 (08:57→09:01)
[2020-05-25] MEDS ORDERED: hydroCHLOROthiazide 12.5 MG CAP PO SCH (09:00)
[2020-05-25] MEDS ORDERED: lisinopriL 20 MG TAB PO SCH ×2 (09:00)
[2020-05-25] MEDS ORDERED: METOPROLOL TAR 50 MG TAB PO SCH (09:00)
--- NOTE | 2020-05-25 09:11 | P.SSS ---
Patient History Date of Service: 05/25/20 Primary Care Provider: Isak Morrison Reason for admission: chest pain. History of Present Illness: Patient is a pleasant Frisian speaking woman. She has a history of afib, htn hyperlipidemia. The patient had some pressure in his chest last night at approx 7:30 The patient came to the ER Her pain resolved she had a normal ekg. The patient had negative troponins. Was placed in observation. She is doing well this morning. She has no complaints and is calmly eating breakfast. Allergies levofloxacin [From Levaquin] Allergy (Verified 07/16/17 10:29) unknown acetaminophen [From Tylenol-Codeine #3] Adverse Reaction (Verified 07/16/17 10:29) bone pain codeine [From Tylenol-Codeine #3] Adverse Reaction (Verified 07/16/17 10:29) bone pain Home Medications: Atorvastatin Calcium 10 mg PO BEDTIME 01/02/18 Lisinopril/Hydrochlorothiazide [Lisinopril-Hctz 20-12.5 mg Tab] 1 tab PO DAILY 01/02/18 Metoprolol Tartrate [Lopressor*] 50 mg PO BID 01/02/18 Famotidine [Pepcid*] 1 tab PO DAILY 05/25/20 Rivaroxaban [Xarelto*] 20 mg PO DAILY 05/25/20 Sulfamethoxazole/Trimethoprim [Sulfamethoxazole-Tmp Ds Tablet] 1 tab PO BID 05/25/20 Zolpidem Tartrate [Ambien*] 1 tab PO BEDTIME 05/25/20 - Past Medical/Surgical History Has patient received pneumonia vaccine in the past: Yes Diabetic: No -: HTN -: DM -: Cataract both eyes - Social History Smoking Status: Never smoker Alcohol use: No CD- Drugs: No Caffeine use: Yes Place of Residence: Home Review of Systems 10-point ROS is otherwise unremarkable Physical Examination - Vital Signs Temperature: 97.9 F Blood Pressure: 142/65 Pulse: 65 Respirations: 18 Pulse Ox (%): 97 - Physical Exam General: Alert, In no apparent distress HEENT: Atraumatic, PERRLA, Mucous membr. moist/pink, EOMI, Sclerae nonicteric Neck: Supple, 2+ carotid pulse no bruit, No LAD, Without JVD or thyroid abnormality Respiratory: Clear to auscultation bilaterally, Normal air movement Cardiovascular: Regular rate/rhythm, Normal S1 S2 Gastrointestinal: Normal bowel sounds, No tenderness Musculoskeletal: No tenderness Integumentary: No rashes Neurological: Normal gait, Normal speech, Normal strength at 5/5 x4 extr, Normal tone, Normal affect Lymphatics: No axilla or inguinal lymphadenopathy - Studies Laboratory Data (last 24 hrs) 05/24/20 22:45: PT 33.6 H, INR 2.91 05/24/20 22:45: WBC 9.3, Hgb 12.1, Hct 35.1 L, Plt Count 168 05/24/20 22:45: Sodium 130 L, Potassium 4.1, BUN 13, Creatinine 0.92, Glucose 114 H, Magnesium 1.9, Total Bilirubin 0.5, AST 15, ALT 21, Alkaline Phosphatase 46 05/24/20 21:58: PT Cancelled, INR Cancelled 05/24/20 21:58: WBC Cancelled, Hgb Cancelled, Hct Cancelled, Plt Count Cancelled 05/24/20 21:58: Sodium Cancelled, Potassium Cancelled, BUN Cancelled, Creatinine Cancelled, Glucose Cancelled, Magnesium Cancelled, Total Bilirubin Cancelled, AST Cancelled, ALT Cancelled, Alkaline Phosphatase Cancelled - Diagnosis (Problem(s)) (1) Atrial fibrillation Current Visit: Yes Status: Acute Plan: on xarelto and metoprolol. she most likey had a svt. Have spoken with Dr. Mooney. Will have her follow up with him on at 1pm. Qualifiers: Atrial fibrillation type: paroxysmal Qualified Code(s): I48.0 - Paroxysmal atrial fibrillation (2) Chest pain Onset Date: 01/03/18 Current Visit: No Status: Acute Plan: patient has 3 negative troponins. Will discharge her home. Have her follow up with Mrs Morrison and Dr. Mooney. Qualifiers: Chest pain type: unspecified Qualified Code(s): R07.9 - Chest pain, unspecified (3) HTN (hypertension) Onset Date: 01/03/18 Current Visit: No Status: Chronic Plan: on lisinopril She is doing well. slightly elevated. However we can address this in the office with Mrs Morrison. Qualifiers: Hypertension type: essential hypertension Qualified Code(s): I10 - Essential (primary) hypertension - Disposition Disposition: ROUTINE DISCHARGE Diet: AHA Activity: Ad ching Critical Care: No Time Spent Managing Pts Care (In Minutes): 40
[2020-05-25 10:20] VITALS: O2SAT 97
[2020-05-25] MEDS ORDERED: ENOXAPARIN 40 MG/0.4 ML SQ SCH (17:00)
[2020-05-25] MEDS ORDERED: ATORVASTATIN 10 MG TAB PO SCH (21:00)
--- NOTE | 2020-05-26 06:34 | EKG ---
Test Date: 2020-05-24 Test Time: 23:19:01 Physicist Astrophysics: AYAD MEASUREMENT RESULTS: Intervals: Rate: 53 RI: 186 QRSD: 102 QT: 462 QTc: 433 [place]: P: 26 RI: 186 QRS: -11 T: 136 INTERPRETIVE STATEMENTS: Sinus bradycardia Left ventricular hypertrophy with repolarization abnormality Abnormal ECG Compared to ECG 05/24/2020 19:56:20 Left ventricular hypertrophy now present Early repolarization now present ST (T wave) deviation no longer present Possible ischemia no longer present Electronically Signed On 05-26-20 06:31:59 PROGRAM ELIGIBILITY SPECIALIST by Keon Mooney
== END 2020-05-25 10:10 | disposition home or self-care (01) ==
LOC: ER 19:15 → ERHOLD 23:56 → 2ND 05-25 01:39
PROVIDERS: ADMIT Internal Medicine; ATTEND Internal Medicine
DX: R07.89 Other chest pain (principal); I48.91 Unspecified atrial fibrillation; I10 Essential (primary) hypertension; E78.5 Hyperlipidemia, unspecified; E11.9 Type 2 diabetes mellitus without complications; Z79.01 Long term (current) use of anticoagulants; Z20.822 Contact with and (suspected) exposure to COVID-19; R94.31 Abnormal electrocardiogram [ECG] [EKG]
CPT/HCPCS: 0240U; 36415; 71045; 80048; 80076; 83735; 83880; 84484; 85025; 85610; 93005; 99285; G0378

== ENCOUNTER 2021-06-13 05:27 | Observation (INO) | payer OTHER ==
--- OUTSIDE RECORDS SUMMARY | 2021-06-13 05:29 | XMS REPORT | Continuity of Care Document ---
:1935 Author Organization [facility] t Address [address] [place] [address] [place] [id number] Care Team Providers Name Role Phone LISA BRYANT Attending Clinician Unavailable Problems This patient has no known problems. Allergies, Adverse Reactions, Alerts This patient has no known allergies or adverse reactions. Medications This patient has no known medications. Procedures This patient has no known procedures. Encounters Start End Encounter Admission Attending Care Care Encounter Source Date/Time Date/Time Type Type Clinicians Facility Department ID 2019-09-15 2019-09-15 Outpatient [facility] [id number] [place] 00:00:00 00:00:00 LISA DUENAS [address] Results This patient has no known results.
[2021-06-13 05:57] LABS: Absolute Lymphocytes (CBC) 3.1 K/uL (0.7-4.9); Hematocrit 36.4 % (36.0-45.0); Lymphocytes % 37.7 % (15.3-44.8); MPV 9.2 fL (7.6-11.3); Protime INR 2.66; RBC Red Blood Cell Count 4.17 M/uL (3.86-4.86)
[2021-06-13 06:22] LABS: Albumin 3.5 g/dL (3.4-5.0); Bilirubin Direct 0.1 mg/dL (0-0.2); Bilirubin Total 0.4 mg/dL (0.2-1.0); Potassium 3.4 mmol/L (3.5-5.1); Protein, Total 7.6 g/dL (6.4-8.2); Troponin High Sensitivity 15.8 pg/mL (<58.9)
--- NOTE | 2021-06-13 07:52 | EDPHYS ---
Physician Documentation [facility] Name: Diandra Shepard Age: 86 yrs Sex: Female : 1935 Arrival Date: 06/13/2021 Time: 05:33 Bed 19 Private MD: ED Physician Jimmy Chaudhari HPI: 06/13 05:43 This 86 yrs old Female presents to ER via Wheelchair with complaints of Chest [facility] Pain. 05:43 The patient or guardian reports chest pain that is located primarily in the substernal [facility] area. Onset: acutely, this morning, at 04:00. The pain does not radiate. Associated signs and symptoms: Pertinent negatives: abdominal pain, dizziness, headache, shortness of breath. The chest pain is described as aching. Duration: The patient or guardian reports multiple episodes, that are intermittent, that wax and wane. Modifying factors: The symptoms are alleviated by nothing. the symptoms are aggravated by nothing. Historical: - Allergies: 05:52 Codeine; lg3 05:52 Tylenol; lg3 05:52 Levaquin; lg3 - Home Meds: 05:52 alprazolam 0.25 mg Oral TbDL 1 tab 3 times per day [Active]; atorvastatin 10 mg Oral lg3 tab 1 tab once daily [Active]; isosorbide mononitrate 30 mg Oral Tb24 1 tab once daily [Active]; lisinopril-hydrochlorothiazide 20-12.5 mg Oral tab 1 tab once daily [Active]; metoprolol tartrate 50 mg Oral tab 1 tab 2 times per day [Active]; Xarelto 20 mg Oral tab 1 tab once daily [Active]; - Immunization history:: Adult Immunizations up to date, Client reports receiving the 2nd dose of the Covid vaccine, Last tetanus immunization: unknown, Pneumococcal vaccine status is unknown, Flu vaccine is up to date. - Social history:: Patient/guardian denies using alcohol, Smoking status: Patient denies any tobacco usage or history of. ROS: 05:43 Constitutional: Negative for fever, chills, and weight loss. jmm 05:43 Respiratory: Negative for shortness of breath, cough, wheezing, and pleuritic chest pain. 05:43 Cardiovascular: Positive for chest pain. 05:43 All other systems are negative. Exam: 05:43 Constitutional: This is a well developed, well nourished patient who is awake, alert, jmm and in no acute distress. Head/Face: atraumatic. Eyes: EOMI, no conjunctival erythema appreciated ENT: Moist Mucus Membranes Neck: Trachea midline, Supple Chest/axilla: Normal chest wall appearance and motion. Cardiovascular: Regular rate and rhythm. No edema appreciated Respiratory: Normal respirations, no respiratory distress appreciated Abdomen/GI: Non distended, soft Back: Normal ROM Skin: General appearance color normal MS/ Extremity: Moves all extremities, no obvious deformities appreciated, no edema noted to the lower extremities Neuro: Awake and alert, normal gait Psych: Behavior is normal, Mood is normal, Patient is cooperative and pleasant Vital Signs: 05:50 BP 166 / 72; Pulse 71 MON; Resp 16 S; Temp 97.7(O); Pulse Ox 99% on R/A; Weight 79.38 lg3 kg; Height 5 ft. 1 in. (154.94 cm); Pain 7/10; 07:00 BP 131 / 54; Pulse 62; Resp 15; Pulse Ox 97% on R/A; ll1 08:00 BP 134 / 59; Pulse 70; Resp 15; Pulse Ox 95% on R/A; ll1 09:00 BP 107 / 41; Pulse 60; Resp 15; Pulse Ox 97% ; ll1 10:00 BP 119 / 47; Pulse 53; Resp 15; Pulse Ox 97% on R/A; ll1 05:50 Body Mass Index 33.07 (79.38 kg, 154.94 cm) lg3 MDM: 06:18 Patient medically screened. [facility] 07:49 The patient was given aspirin in the Emergency Department. Data reviewed: vital signs, [facility] nurses notes. Counseling: I had a detailed discussion with the patient and/or guardian regarding: the historical points, exam findings, and any diagnostic results supporting the discharge/admit diagnosis, lab results, radiology results. ED course: I discussed the patient with Dr. Montoya whom accepted the patient for admission. . 06/13 05:43 Order name: Basic Metabolic Panel lp1 06/13 05:43 Order name: CBC with Diff; Complete Time: 06:27 lp1 06/13 05:43 Order name: LFT's; Complete Time: 06:27 lp1 06/13 05:43 Order name: Magnesium; Complete Time: 06:27 lp1 06/13 05:43 Order name: NT PRO-BNP; Complete Time: 06:27 lp1 06/13 05:43 Order name: PT-INR; Complete Time: 06:27 lp1 06/13 05:43 Order name: Troponin HS; Complete Time: 06:27 lp1 06/13 05:43 Order name: XRAY Chest (1 view); Complete Time: 08:06 lp1 06/13 05:43 Order name: EKG; Complete Time: 05:44 lp06/13 05:43 Order name: Basic Metabolic Panel; Complete Time: 06:27 EDNV 06/13 05:44 Order name: COVID-19 SARS RT PCR (Document "Date of Onset" if Symptomatic); Complete la1 Time: 07:44 06/13 08:22 Order name: EKG Electrocardiogram EDNV 06/13 12:06 Order name: CONS Physician Consult EDNV 06/13 05:43 Order name: Cardiac monitoring; Complete Time: 05:44 lp1 06/13 05:43 Order name: EKG - Nurse/Tech; Complete Time: 05:43 lp06/13 05:43 Order name: IV Saline Lock; Complete Time: 05:44 lp1 06/13 05:43 Order name: Labs collected and sent; Complete Time: 05:44 lp06/13 05:43 Order name: O2 Per Protocol; Complete Time: 05:44 lp06/13 05:43 Order name: O2 Sat Monitoring; Complete Time: 05:44 lp1 Administered Medications: 10:24 Not Given (Patient Refused): Aspirin Chewable Tablet 324 mg PO once; 81 mg tablets x 4 ll1 Disposition Summary: 06/13/21 07:51 Hospitalization Ordered Hospitalization Status: Observation jm Provider: David Montoya Location: Telemetry/MedSurg (observation) jmm Condition: Stable jmm Problem: an acute exacerbation jmm Symptoms: have improved jmm Bed/Room Type: Standard [facility] Room Assignment: [facility](06/13/21 14:16) bd Diagnosis - Chest pain, unspecified jmm Forms: - Medication Reconciliation Form jmm - SBAR form [facility] Signatures: Dispatcher [employer] EDMS Angélica Leavitt Joel, PA PA Em Stevens, RN RN lp1 Betty Arevalo, RN RN lg3 Geni Medrano RN RN ll1 Corrections: (The following items were deleted from the chart) 07:51 susie galeano
--- NOTE | 2021-06-13 07:52 | ER ---
Nurse's Notes [facility] Name: Diandra Shepard Age: 86 yrs Sex: Female : 1935 Arrival Date: 06/13/2021 Time: 05:33 Bed 19 Private MD: Diagnosis: Chest pain, unspecified Presentation: 06/13 05:55 Chief complaint: Patient states: chest pain and shortness of breath that woke her up lg3 this morning. Coronavirus screen: Vaccine status: Patient reports receiving the 2nd dose of the covid vaccine. Client denies travel out of the [place] in the last 14 days. Ebola Screen: No symptoms or risks identified at this time. Initial Sepsis Screen: Does the patient meet any 2 criteria? No. Patient's initial sepsis screen is negative. Initial Sepsis Screen: Does the patient have a suspected source of infection? No. Patient's initial sepsis screen is negative. Risk Assessment: Do you want to hurt yourself or someone else? Patient reports no desire to harm self or others. Onset of symptoms was June 13, 2021. 05:55 Method Of Arrival: Wheelchair lg3 05:55 Acuity: VANESSA 2 lg3 Triage Assessment: 05:50 General: Appears in no apparent distress. comfortable. Pain: Complains of pain in lg3 chest. Cardiovascular: Reports chest pain. 05:52 General: Behavior is calm, cooperative, appropriate for age. lg3 Historical: - Allergies: 05:52 Codeine; lg3 05:52 Tylenol; lg3 05:52 Levaquin; lg3 - Home Meds: 05:52 alprazolam 0.25 mg Oral TbDL 1 tab 3 times per day [Active]; atorvastatin 10 mg Oral lg3 tab 1 tab once daily [Active]; isosorbide mononitrate 30 mg Oral Tb24 1 tab once daily [Active]; lisinopril-hydrochlorothiazide 20-12.5 mg Oral tab 1 tab once daily [Active]; metoprolol tartrate 50 mg Oral tab 1 tab 2 times per day [Active]; Xarelto 20 mg Oral tab 1 tab once daily [Active]; - Immunization history:: Adult Immunizations up to date, Client reports receiving the 2nd dose of the Covid vaccine, Last tetanus immunization: unknown, Pneumococcal vaccine status is unknown, Flu vaccine is up to date. - Social history:: Patient/guardian denies using alcohol, Smoking status: Patient denies any tobacco usage or history of. Screenin:57 Abuse screen: Denies threats or abuse. Nutritional screening: No deficits noted. lg3 Tuberculosis screening: No symptoms or risk factors identified. Fall Risk Ambulatory Aid- Crutches/Cane/Walker (15 pts). Gait- Weak (10 pts.). Mental Status- Oriented to own ability (0 pts). Assessment: 05:57 Reassessment: The patient was woken from her sleep with chest pain about an hour ago. lg3 07:00 Reassessment: No changes from previously documented assessment. Patient and/or family ll1 updated on plan of care and expected duration. Pain level reassessed. Patient is alert, oriented x 3, equal unlabored respirations, skin warm/dry/pink. Pain: Denies pain. Pain does not radiate. Pain began 2-3 days ago. 08:00 Reassessment: No changes from previously documented assessment. Patient and/or family ll1 updated on plan of care and expected duration. Pain level reassessed. Patient is alert, oriented x 3, equal unlabored respirations, skin warm/dry/pink. 09:00 Reassessment: No changes from previously documented assessment. Patient and/or family ll1 updated on plan of care and expected duration. Pain level reassessed. Patient is alert, oriented x 3, equal unlabored respirations, skin warm/dry/pink. gait steady to restroom. 10:00 Reassessment: No changes from previously documented assessment. Patient and/or family ll1 updated on plan of care and expected duration. Pain level reassessed. Patient is alert, oriented x 3, equal unlabored respirations, skin warm/dry/pink. Vital Signs: 05:50 BP 166 / 72; Pulse 71 MON; Resp 16 S; Temp 97.7(O); Pulse Ox 99% on R/A; Weight 79.38 lg3 kg; Height 5 ft. 1 in. (154.94 cm); Pain 11/27; 07:00 BP 131 / 54; Pulse 62; Resp 15; Pulse Ox 97% on R/A; ll1 08:00 BP 134 / 59; Pulse 70; Resp 15; Pulse Ox 95% on R/A; ll1 09:00 BP 107 / 41; Pulse 60; Resp 15; Pulse Ox 97% ; ll1 10:00 BP 119 / 47; Pulse 53; Resp 15; Pulse Ox 97% on R/A; ll1 05:50 Body Mass Index 33.07 (79.38 kg, 154.94 cm) lg3 ED Course: 05:33 Patient arrived in ED. ja2 05:44 CBC with Diff Sent. lg3 05:45 Basic Metabolic Panel Sent. lg3 05:45 LFT's Sent. lg3 05:45 Magnesium Sent. lg3 05:45 NT PRO-BNP Sent. lg3 05:45 PT-INR Sent. lg3 05:45 Troponin HS Sent. lg3 05:45 Basic Metabolic Panel Sent. lg3 05:50 Betty Arevalo, RN is Primary Nurse. lg3 05:50 Arm band placed on right wrist. lg3 05:57 Triage completed. lg3 05:57 Inserted saline lock: 20 gauge in right antecubital area, using aseptic technique. lg3 Patient maintains SpO2 saturation greater than 95% on room air. 05:57 Patient has correct armband on for positive identification. Placed in gown. Bed in low lg3 position. Call light in reach. Side rails up X2. reliability technician on. 06:01 COVID-19 SARS RT PCR (Document "Date of Onset" if Symptomatic) Sent. lg3 06:01 Basic Metabolic Panel Sent. lg3 06:01 LFT's Sent. lg3 06:01 Magnesium Sent. lg3 06:01 NT PRO-BNP Sent. lg3 06:01 Troponin HS Sent. lg3 06:02 Eric Mc PA is PHCP. [facility] 06:02 Jimmy Chaudhari MD is Attending Physician. m 06:33 XRAY Chest (1 view) In Process Unspecified. EDMS 07:51 David Montoya MD is Hospitalizing Provider. [facility] Administered Medications: 10:24 Not Given (Patient Refused): Aspirin Chewable Tablet 324 mg PO once; 81 mg tablets x 4 ll1 Outcome: 07:51 Decision to Hospitalize by Provider. jmm 15:34 Patient left the ED. 1 Signatures: Dispatcher [employer] EDMS Eric Mc PA PA [facility] Betty Arevalo, RN RN 3 Geni Medrano RN RN ll1 Yaneli Elizabeth Corrections: (The following items were deleted from the chart) 08:16 Aspirin Chewable Tablet 324 mg PO ll1 ll1
--- NOTE | 2021-06-13 08:03 | EKG ---
Test Date: 2021-06-13 Test Time: 05:37:13 Cable Television Installer: LILIBETH MEASUREMENT RESULTS: Intervals: Rate: 67 AL: 172 QRSD: 102 QT: 430 QTc: 454 [place]: P: 39 AL: 172 QRS: -28 T: 104 INTERPRETIVE STATEMENTS: Normal sinus rhythm Left ventricular hypertrophy with repolarization abnormality Abnormal ECG Compared to ECG 05/24/2020 23:19:01 Sinus bradycardia no longer present Electronically Signed On 06-13-21 08:02:38 SHALE MINER BLASTING by Keon Mooney
--- NOTE | 2021-06-13 08:05 | RAD REPORT ---
EXAM DESCRIPTION: RAD - Chest Single View - 06/13/2021 6:33 am CLINICAL HISTORY: Chest pain;SOB COMPARISON: Chest Single View dated 05/24/2020; Chest Single View dated 01/02/2018; Chest Pa And Lat (2 Views) dated 04/10/2017 FINDINGS: Lines: None. Lungs: No evidence of edema or pneumonia. Pleural: No significant pleural effusions or pneumothorax. Cardiac: Borderline enlarged Bones: No acute fractures. Other: IMPRESSION: No acute cardiopulmonary disease.
[2021-06-13] MEDS ORDERED: ASPIRIN 81 MG CHEWABLE TABLET ONE (08:08)
--- NOTE | 2021-06-13 12:53 | CON ---
Date of Consultation: 06/13/2021 Reason For Consultation: Chest pain. History Of Present Illness: This is an elderly female with history diabetes, hypertension, presented with left-sided chest pain, short lived, not related to exertion. No radiation. Denies having any shortness of breath. Pain is completely resolved at the time of my evaluation. The patient had a co ronary angiogram back in June [address] Mooney and found to have very minimal plaque in the LA D, otherwise no significant coronary artery disease. Her first cardiac enzymes negative and EKG with out specific abnormalities, and no further complaints at present time. Past Medical History: Diabetes, hypertension. Medications: Refer to reconciliation sheet for detailed list. Allergies: NO KNOWN DRUG ALLERGIES. Family History: No premature coronary artery disease or cancer. Social History: She does not smoke or drink. Does not use any drugs. Review of Systems: All systems reviewed and were negative except for what mentioned in HPI. Physical Examination: Vital Signs: Reviewed. Head and Neck: Pupils are equal, reactive to light. Intact eye movements. No JVD. No cervical lym phadenopathy. Neck is supple. Thyroid is not enlarged. Lungs: Clear to auscultation bilaterally. No rhonchi, rales, or crackles. No accessory muscle use. Heart: Regular rate and rhythm. No extra sounds. Abdomen: Soft, nontender. Bowel sounds positive. No organomegaly. No masses or hernia. No rigidi ty or rebound. Extremities: No edema, clubbing, or cyanosis. Intact pulses. Skin: No rash. Neurologic: Alert, awake, oriented x3. No acute focal deficits appreciated. Investigations: Labs were reviewed. Troponin is negative. EKG without acute specific abnormalities . Assessment And Recommendations: 1.Chest pain. First troponin is negative. The patient has risk factors including age, diabetes, hy pertension. Recommend observation with 2 more sets of cardiac enzymes. If both are negative, then t he patient can be released and set up for a Lexiscan nuclear stress test as an outpatient along with echo. Start her on baby aspirin for now and we will follow the patient with you. 2.Hypertension. Blood pressure is controlled. SR/MODL Voice ID: [id number] Report ID: [id number]
[2021-06-13 12:56] VITALS: BMI 32.8
[2021-06-13] MEDS: hydroCHLOROthiazide 12.5 MG CAP PO SCH (13:00)
--- NOTE | 2021-06-13 13:01 | P.HP ---
Certification for Inpatient Patient admitted to: Observation With expected LOS: <2 Midnights Patient will require the following post-hospital care: None Practitioner: I am a practitioner with admitting privileges, knowledge of patient current condition, hospital course, and medical plan of care. Services: Services provided to patient in accordance with Admission requirements found in Title 42 Section 412.3 of the Code of Federal Regulations Patient History Date of Service: 06/13/21 Primary Care Provider: Isak Morrison Reason for admission: unstable angina History of Present Illness: Patient is an office patient of ours. The patient has a history of dm2, htn, atrial fib and carotid stenosis She experienced left sided chest pain last night. Not radiating to the arm She had no loss of conciosness. Came to the ER. Had a negative troponins. Some ST changes. Allergies levofloxacin [From Levaquin] Allergy (Verified 07/16/17 10:29) unknown acetaminophen [From Tylenol-Codeine #3] Adverse Reaction (Verified 07/16/17 10:29) bone pain codeine [From Tylenol-Codeine #3] Adverse Reaction (Verified 07/16/17 10:29) bone pain Home Medications: Atorvastatin Calcium 10 mg PO BEDTIME 01/02/18 Lisinopril/Hydrochlorothiazide [Lisinopril-Hctz 20-12.5 mg Tab] 1 tab PO DAILY 01/02/18 Metoprolol Tartrate [Lopressor*] 50 mg PO BID 01/02/18 Famotidine [Pepcid*] 1 tab PO DAILY 05/25/20 Rivaroxaban [Xarelto*] 20 mg PO DAILY 05/25/20 Sulfamethoxazole/Trimethoprim [Sulfamethoxazole-Tmp Ds Tablet] 1 tab PO BID 05/25/20 Zolpidem Tartrate [Ambien*] 1 tab PO BEDTIME 05/25/20 - Past Medical/Surgical History Diabetic: No -: HTN -: DM -: Cataract both eyes - Social History Alcohol use: No CD- Drugs: No Caffeine use: Yes Review of Systems 10-point ROS is otherwise unremarkable Cardiovascular: Chest Pain Physical Examination - Physical Exam General: Alert, In no apparent distress HEENT: Atraumatic, PERRLA, Mucous membr. moist/pink, EOMI, Sclerae nonicteric Neck: Supple, 2+ carotid pulse no bruit, No LAD, Without JVD or thyroid abnormality Respiratory: Clear to auscultation bilaterally, Normal air movement Cardiovascular: Regular rate/rhythm, Normal S1 S2 Gastrointestinal: Normal bowel sounds, No tenderness Musculoskeletal: No tenderness Integumentary: No rashes Neurological: Normal gait, Normal speech, Normal strength at 5/5 x4 extr, Normal tone, Normal affect Lymphatics: No axilla or inguinal lymphadenopathy - Studies Laboratory Data (last 24 hrs) 06/13/21 05:45: PT 30.9 H, INR 2.66 06/13/21 05:45: WBC 8.20, Hgb 12.1, Hct 36.4, Plt Count 198 06/13/21 05:45: Sodium 134 L, Potassium 3.4 L, BUN 12, Creatinine 0.78, Glucose 147 H, Magnesium 2.0, Total Bilirubin 0.4, AST 17, ALT 25, Alkaline Phosphatase 53 Assessment and Plan - Problems (Diagnosis) (1) Chest pain Onset Date: 01/03/18 Current Visit: No Status: Acute Plan: Will continue serial troponins. Consult cardiology. Will see if interventions are needed. Qualifiers: Chest pain type: unspecified Qualified Code(s): R07.9 - Chest pain, un specified (2) Atrial fibrillation Current Visit: No Status: Acute Plan: currently not on beta blockers due to fall risk. Will continue monitoring her rate. Qualifiers: Atrial fibrillation type: paroxysmal Qualified Code(s): I48.0 - Paroxysmal atrial fibrillation (3) HTN (hypertension) Onset Date: 01/03/18 Current Visit: No Status: Chronic Plan: restart lisinopril and hctz. Will adjust as needed. Qualifiers: Hypertension type: essential hypertension Qualified Code(s): I10 - Essential (primary) hypertension Discharge Plan: Home Plan to discharge in: 24 Hours - Advance Directives Does patient have a Living Will: No Does patient have a Durable POA for Healthcare: No - Code Status/Comfort Care Code Status Assessed: No Code Status: Full Code Physician Review: Patient Assessed, Agree with Above Assessment and Plan Critical Care: No Time Spent Managing Pts Care (In Minutes): 50
[2021-06-13] MEDS ORDERED: ATORVASTATIN 10 MG TAB PO SCH (21:00)
[2021-06-13 23:03] VITALS: O2SAT 97
--- NOTE | 2021-06-14 08:25 | EKG ---
Test Date: 2021-06-13 Test Time: 11:02:08 Microsoft Net Developer: MARIO MEASUREMENT RESULTS: Intervals: Rate: 56 NV: 190 QRSD: 98 QT: 468 QTc: 451 [place]: P: 52 NV: 190 QRS: 10 T: 144 INTERPRETIVE STATEMENTS: Sinus bradycardia T wave abnormality, consider lateral ischemia Abnormal ECG Compared to ECG 06/13/2021 06:11:49 T-wave abnormality now present Possible ischemia now present Left-axis deviation no longer present Myocardial infarct finding no longer present Electronically Signed On 06-14-21 08:22:35 ANCIENT ART CURATOR by Keon Mooney
[2021-06-14] MEDS ORDERED: lisinopriL 20 MG TAB PO SCH (09:00)
[2021-06-14] MEDS: hydroCHLOROthiazide 12.5 MG CAP PO SCH (09:00)
[2021-06-14] MEDS ORDERED: FAMOTIDINE 20 MG TAB PO SCH (09:00)
[2021-06-14] MEDS ORDERED: ASPIRIN EC 81 MG TAB PO SCH (09:00)
--- NOTE | 2021-06-14 09:15 | P.DS ---
Admission Date: 06/13/21 Discharge Date: 06/14/21 Primary Care Provider: Isak Morrison Disposition: ROUTINE DISCHARGE Discharge Condition: GOOD Reason for Admission: unstable angina - Problems (1) Chest pain Onset Date: 01/03/18 Current Visit: No Status: Acute Qualifiers: Chest pain type: unspecified Qualified Code(s): R07.9 - Chest pain, unspecified (2) Atrial fibrillation Current Visit: No Status: Acute Qualifiers: Atrial fibrillation type: paroxysmal Qualified Code(s): I48.0 - Paroxysmal atrial fibrillation (3) HTN (hypertension) Onset Date: 01/03/18 Current Visit: No Status: Chronic Qualifiers: Hypertension type: essential hypertension Qualified Code(s): I10 - Essential (primary) hypertension Brief History of Present Illness: Patient is an office patient of ours. The patient has a history of dm2, htn, atrial fib and carotid stenosis She experienced left sided chest pain last night. Not radiating to the arm She had no loss of conciosness. Came to the ER. Had a negative troponins. Some ST changes. Hospital Course: Patient presented with chest pain She had no sob. was admitted and had 2 negative troponins. The patent has no chest pain at this time. Will have the patient follow up in the office with Mrs Morrison Vital Signs/Physical Exam: Temp Pulse Resp BP Pulse Ox 97.2 F 62 18 119/58 L 95 06/14/21 04:00 06/14/21 04:00 06/14/21 04:00 06/14/21 04:00 06/14/21 04:00 General: Alert, In no apparent distress HEENT: Atraumatic, PERRLA, EOMI Neck: Supple, JVD not distended Respiratory: Clear to auscultation bilaterally, Normal air movement Cardiovascular: Regular rate/rhythm, Normal S1 S2 Gastrointestinal: Normal bowel sounds, No tenderness Musculoskeletal: No tenderness Integumentary: No rashes Neurological: Normal speech, Normal tone, Normal affect Lymphatics: No axilla or inguinal lymphadenopathy Laboratory Data at Discharge: WBC 8.20 K/uL (4.3-10.9) 06/13/21 05:45 Hgb 12.1 g/dL (12.0-15.0) 06/13/21 05:45 Hct 36.4 % (36.0-45.0) 06/13/21 05:45 Plt Count 198 K/uL (152-406) 06/13/21 05:45 PT 30.9 SECONDS (9.5-12.5) H 06/13/21 05:45 INR 2.66 06/13/21 05:45 Sodium 134 mmol/L (136-145) L 06/13/21 05:45 Potassium 3.4 mmol/L (3.5-5.1) L 06/13/21 05:45 BUN 12 mg/dL (7-18) 06/13/21 05:45 Creatinine 0.78 mg/dL (0.55-1.3) 06/13/21 05:45 Glucose 147 mg/dL (74-106) H 06/13/21 05:45 Magnesium 2.0 mg/dL (1.8-2.4) 06/13/21 05:45 Total Bilirubin 0.4 mg/dL (0.2-1.0) 06/13/21 05:45 AST 17 U/L (15-37) 06/13/21 05:45 ALT 25 U/L (12-78) 06/13/21 05:45 Alkaline Phosphatase 53 U/L (45-117) 06/13/21 05:45 Home Medications: Atorvastatin Calcium 10 mg PO BEDTIME 01/02/18 Lisinopril/Hydrochlorothiazide [Lisinopril-Hctz 20-12.5 mg Tab] 1 tab PO DAILY 01/02/18 Metoprolol Tartrate [Lopressor*] 50 mg PO BID 01/02/18 Famotidine [Pepcid*] 1 tab PO DAILY 05/25/20 Rivaroxaban [Xarelto*] 20 mg PO DAILY 05/25/20 Sulfamethoxazole/Trimethoprim [Sulfamethoxazole-Tmp Ds Tablet] 1 tab PO BID 05/25/20 Zolpidem Tartrate [Ambien*] 1 tab PO BEDTIME 05/25/20 Diet: AHA Activity: Ad ching Followup: David Montoya MD [Primary Care Provider] - 1 Week Time spent managing pt's care (in minutes): 30
[2021-06-14 10:48] VITALS: BP 135/60; TEMP 97
--- NOTE | 2021-06-14 10:57 | PN ---
The patient admitted to Dr. Montoya. She was seen by Dr. Reyes yesterday, 06/13/2021 with atypical ch est pain. The patient has mild coronary artery disease by heart catheterization in 2017. She has hy pertension. She has diabetes and dyslipidemia. Dr. Reyes suggested following up the troponin. Bot h of her troponins were negative. She had a normal chest x-ray. Her EKG showed left ventricular hyp ertrophy. No specific arrhythmia overnight. The case was discussed with Dr. Montoya. Ms. Drea mena n go home whenever it is okay with Dr. Montoya. I will set her up for an outpatient stress test. It w ill have to be a Lexiscan. JOSE CARLOS/SOCRATES Voice ID: [id number] Report ID: [id number]
== END 2021-06-14 11:46 | disposition home or self-care (01) ==
LOC: ER 05:27 → SUPCPDRO 05:27 → ERHOLD 12:04 → 2ND 15:23
PROVIDERS: ADMIT Internal Medicine; ATTEND Internal Medicine
DX: R07.9 Chest pain, unspecified (principal); I48.0 Paroxysmal atrial fibrillation; I10 Essential (primary) hypertension; I25.10 Atherosclerotic heart disease of native coronary artery without angina pectoris; E11.9 Type 2 diabetes mellitus without complications; E78.5 Hyperlipidemia, unspecified; Z79.01 Long term (current) use of anticoagulants; Z88.6 Allergy status to analgesic agent; Z88.3 Allergy status to other anti-infective agents; Z20.822 Contact with and (suspected) exposure to COVID-19
CPT/HCPCS: 93005 ×3; 85025; 80048; 36415; 83735; 85610; 80076; 84484 ×2; 83880; 71045; 99285; U0003; G0378

== ENCOUNTER 2022-02-10 14:55 | Emergency (ER) | payer OTHER ==
--- OUTSIDE RECORDS SUMMARY | 2022-02-10 14:59 | XMS REPORT | Continuity of Care Document ---
:1935 Author Organization [facility] t Address [address] [place] [address] Care Team Providers Name Role Phone Lindsay CARR, David Montemayor Primary Care Physician [phone] LISA BRYANT Attending Clinician Unavailable Problems Condition Condition Condition Status Onset Resolution Last Treating Co mments Source Name Details Category Date Date Treatment Clinician Date Rectal Rectal Disease Active 0 [facility] bleeding bleeding 09-14 00:00: Hospita 00 l Indigestio Indigestio Disease Active 2020-0 M ethodi n n 09-14 00:00: Hospita 00 l Flatulence Flatulence Disease Active 2020-0 M ethodi , , 09-14 eructation eructation 00:00: Ho spita and gas and gas 00 l pain pain Allergies, Adverse Reactions, Alerts This patient has no known allergies or adverse reactions. Family History Family Member Diagnosis Comments Start Date Stop Date Source Natural father Prostate cancer [facility] Natural mother [facility] Natural sister [facility] Social History Social Habit Start Date Stop Date Quantity Comments Source History [facility] B[facility] Hospital History [facility] St[facility] Hospital Drinks Tobacco use and 2019-09-15 2019-09-15 Smokeless tobacco [facility] exposure 00:[facility] 00:00:00 non-user Hospital Alcohol intake 2019-09-15 2019-09-15 Lifetime [facility] 00:00:00 00:00:00 non-drinker Hospital (finding) History [facility] 2019-09-15 2019-09-15 1 [facility] Alcohol Frequency 00:00:00 00:00:00 Hospita l Sex Ass[birth year] At [birth year] [facility] 00:00:00 00:[facility]:00 Hospital Smoking Status Start Date Stop Date Source Never smoked tobacco [facility] Medications Ordered Filled Start Stop Current Ordering Indication Dosage Frequency Signature Comments Components Source Medication Medication Date Date Medication? Clinician (SIG) Name Name famotidine 2020-0 Yes 20mg Q.5D Take 20 mg M [facility] (PEPCID) 20 4-[address] MG tablet 11:38: (two) Hospita 12 times a l day. metroNIDAZO 2020-0 Yes 250mg Q.[id number] Take 250 [facility] LE (FLAGYL) 4-27 [id number] mg by s t 250 MG 09:00: 3D mouth 3 Hospita tablet 02 (three) l times a day. atorvastati 2020-0 Yes 10mg QD Take 10 mg [facility] n (LIPITOR) 4-[address] 10 MG 08:59: daily. Hospita tablet 57 l lisinopriL 2020-0 Yes QD Take by Meth richa 20 mg 4-[address] tablet 1 08:59: daily. Hospita tablet, 57 l hydroCHLORO thiazide 25 MG tablet 0.5 tablet metoprolol 2020-0 Yes 50mg Q.5D Take 50 mg M [facility] tartrate 4-[address] (LOPRESSOR) 08:59: (two) Hospi ta 50 mg 57 times a l tablet day. metFORMIN 2020-0 Yes 500mg Q.5D Take 500 Met h[facility] (GLUCOPHAGE 4-[address] ) 500 mg 08:59: mouth 2 Hospit a tablet 57 (two) l times a day with meals. hydrOXYzine 2020-0 Yes 10mg Q.[id number] Take 10 mg [facility] (ATARAX) 10 4-27 [id number] mouth [address] MG tablet 08:59: 3D (three) Hospi ta 57 times a l day as needed for itching. rivaroxaban 2020-0 Yes 20mg Take 20 mg [facility] (XARELTO) 4-[address] 20 mg 08:59: Hospita tablet 57 l Procedures This patient has no known procedures. Plan of Care Planned Activity Planned Date Details Comments Source Future Scheduled 2022-01-17 HEPATITIS B VACCINES [facility] Test 21:45:50 (1 of 3 - 3-dose series) [code = HEPATITIS B VACCINES (1 of 3 - 3-dose series)] Future Scheduled 2022-01-17 COVID-19 VACCINE (#1) [facility] Test 21:45:50 [code = COVID-19 VACCINE (#1)] Future Scheduled 2022-01-17 SHINGLES VACCINES (1 [facility] Test 21:45:50 of 2) [code = SHINGLES VACCINES (1 of 2)] Future Scheduled 2022-01-17 65+ PNEUMOCOCCAL [facility] Test 21:45:50 VACCINE (1 - PCV) [code = 65+ PNEUMOCOCCAL VACCINE (1 - PCV)] Future Scheduled 2022-01-17 INFLUENZA VACCINE [facility] Test 21:45:50 [code = INFLUENZA VACCINE] Encounters Start End Encounter Admission Attending Care Care Encounter Source Date/Time Date/Time Type Type Clinicians Facility Department ID 2019-09-15 2019-09-15 Outpatient [facility] [id number] [place] 00:00:00 00:00:00 LISA DUENAS [id number] Met [facility] Results This patient has no known results.
[2022-02-10 16:00] LABS: Absolute Lymphocytes (CBC) 2.3 K/uL (0.7-4.9); Hematocrit 32.3 % (36.0-45.0); Lymphocytes % 26.2 % (15.3-44.8); MCV 83.6 fL (80-100); MPV 9.5 fL (7.6-11.3); RBC Red Blood Cell Count 3.87 M/uL (3.86-4.86)
--- NOTE | 2022-02-10 16:00 | RAD REPORT ---
EXAM DESCRIPTION: RAD - Chest Single View - 02/10/2022 3:51 pm CLINICAL HISTORY: CHEST PAIN Chest pain. COMPARISON: Chest Single View dated 06/13/2021; Chest Single View dated 05/24/2020; Chest Single View d ated 01/02/2018; Chest Pa And Lat (2 Views) dated 04/10/2017 FINDINGS: Portable technique limits examination quality. The lungs are grossly clear. The heart is mildly enlarged in size. No displaced fractures. IMPRESSION: No acute intrathoracic process suspected.
[2022-02-10 16:15] LABS: Potassium 3.6 mmol/L (3.5-5.1); Troponin High Sensitivity 20.8 pg/mL (<58.9)
[2022-02-10 17:12] LABS: Urine Blood Trace-intact (Negative); Urine Glucose Negative (Negative); Urine Protein Negative (Negative)
--- NOTE | 2022-02-10 17:23 | EDPHYS ---
Physician Documentation [facility] Name: Diandra Shepard Age: 86 yrs Sex: Female : 1935 Arrival Date: 02/10/2022 Time: 14:59 Bed 7 Private MD: David Montoya ED Physician Landry Carter HPI: 02/10 17:06 This 86 yrs old Female presents to ER via Ambulatory with complaints of having jl9 a 15 second episode of chest pain earlier today at 1400. Asymptomatic now. . 17:06 Onset: The symptoms/episode began/occurred today. Associated signs and symptoms: The jl9 patient has no apparent associated signs or symptoms. Modifying factors: The patient symptoms are alleviated by nothing, the patient symptoms are aggravated by nothing. The patient has not experienced similar symptoms in the past. Historical: - Allergies: 15:01 Codeine; ld1 15:01 Levaquin; ld1 15:01 Tylenol; ld1 - PMHx: 15:01 Hyperlipidemia; Hypertension; ld1 - PSHx: 15:01 None; ld1 - Immunization history:: Adult Immunizations up to date, Client reports having NOT received the Covid vaccine. - Social history:: Smoking status: Patient denies any tobacco usage or history of. Patient uses alcohol. ROS: 17:08 Constitutional: Negative for fever, chills, and weight loss, Eyes: Negative for injury, jl9 pain, redness, and discharge, ENT: Negative for injury, pain, and discharge, Neck: Negative for injury, pain, and swelling. 17:08 Respiratory: Negative for shortness of breath, cough, wheezing, and pleuritic chest pain, Abdomen/GI: Negative for abdominal pain, nausea, vomiting, diarrhea, and constipation, Back: Negative for injury and pain, : Negative for injury, bleeding, discharge, and swelling, MS/Extremity: Negative for injury and deformity, Skin: Negative for injury, rash, and discoloration, Neuro: Negative for headache, weakness, numbness, tingling, and seizure, Psych: Negative for depression, anxiety, suicide ideation, homicidal ideation, and hallucinations, Allergy/Immunology: Negative for hives, rash, and allergies, Endocrine: Negative for neck swelling, polydipsia, polyuria, polyphagia, and marked weight changes, Hematologic/Lymphatic: Negative for swollen nodes, abnormal bleeding, and unusual bruising. 17:08 Cardiovascular: Positive for chest pain. Exam: 17:08 Constitutional: This is a well developed, well nourished patient who is awake, alert, jl9 and in no acute distress. Head/Face: Normocephalic, atraumatic. Eyes: Pupils equal round and reactive to light, extra-ocular motions intact. Lids and lashes normal. Conjunctiva and sclera are non-icteric and not injected. Cornea within normal limits. Periorbital areas with no swelling, redness, or edema. ENT: Mucous membranes moist. Neck: Trachea midline, no thyromegaly or masses palpated, and no cervical lymphadenopathy. Supple, full range of motion without nuchal rigidity, or vertebral point tenderness. No Meningismus. Chest/axilla: Normal chest wall appearance and motion. Nontender with no deformity. No lesions are appreciated. Cardiovascular: Regular rate and rhythm with a normal S1 and S2. No gallops, murmurs, or rubs. Normal PMI, no JVD. No pulse deficits. Respiratory: Lungs have equal breath sounds bilaterally, clear to auscultation and percussion. No rales, rhonchi or wheezes noted. No increased work of breathing, no retractions or nasal flaring. Abdomen/GI: Soft, non-tender, with normal bowel sounds. No distension or tympany. No guarding or rebound. No evidence of tenderness throughout. Back: No spinal tenderness. No costovertebral tenderness. Full range of motion. Skin: Warm, dry with normal turgor. Normal color with no rashes, no lesions, and no evidence of cellulitis. MS/ Extremity: Pulses equal, no cyanosis. Neurovascular intact. Full, normal range of motion. Neuro: Awake and alert, GCS 15, oriented to person, place, time, and situation. Cranial nerves II-XII grossly intact. Motor strength 5/5 in all extremities. Sensory grossly intact. Cerebellar exam normal. Normal gait. Psych: Awake, alert, with orientation to person, place and time. Behavior, mood, and affect are within normal limits. Vital Signs: 15:01 BP 165 / 89; Pulse 56; Resp 18; Temp 98.6(TE); Pulse Ox 100% on R/A; Weight 81.65 kg; ld1 Height 5 ft. 2 in. (157.48 cm); Pain 0/10; 16:45 BP 146 / 62; Pulse 58; Resp 16; Pulse Ox 98% on R/A; mb8 16:54 BP 139 / 60; Pulse 60; Resp 16; Pulse Ox 99% ; mb8 15:01 Body Mass Index 32.92 (81.65 kg, 157.48 cm) ld1 MDM: 15:01 Patient medically screened. [facility] 17:08 Data reviewed: vital signs, nurses notes. Counseling: I had a detailed discussion with [facility] the patient and/or guardian regarding: the historical points, exam findings, and any diagnostic results supporting the discharge/admit diagnosis, lab results, the need for outpatient follow up, to return to the emergency department if symptoms worsen or persist or if there are any questions or concerns that arise at home. 17:22 Response to treatment: the patient's symptoms have resolved after treatment, the 9 patient's pain is gone. 02/10 15:02 Order name: Basic Metabolic Panel; Complete Time: 17:06 [facility] 02/10 15:02 Order name: CBC with Diff; Complete Time: 16:02 [facility] 02/10 15:02 Order name: Troponin HS; Complete Time: 17:06 [facility] 02/10 15:02 Order name: Flu; Complete Time: 17:06 [facility] 02/10 15:02 Order name: SARS-COV-2 RT PCR (Document "Date of Onset" if Symptomatic) [facility] 02/10 17:12 Order name: Urine Dipstick-Ancillary; Complete Time: 17:21 EDMS 02/10 15:02 Order name: XRAY Chest (1 view); Complete Time: 16:02 [facility] 02/10 15:02 Order name: EKG; Complete Time: 15:03 [facility] 02/10 15:02 Order name: Cardiac monitoring; Complete Time: 16:35 [facility] 02/10 15:02 Order name: EKG - Nurse/Tech; Complete Time: 15:14 02/10 15:02 Order name: IV Saline Lock; Complete Time: 15:49 02/10 15:02 Order name: Labs collected and sent; Complete Time: 15:49 [facility] 02/10 15:02 Order name: O2 Per Protocol; Complete Time: 16:35 [facility] 02/10 15:02 Order name: O2 Sat Monitoring; Complete Time: 16:35 jl9 02/10 15:02 Order name: Urine Dipstick-Ancillary (obtain specimen); Complete Time: 17:11 jl9 Administered Medications: No medications were administered Disposition: 17:51 Co-signature as Attending Physician, Landry Carter MD. rn Disposition Summary: 02/10/22 17:23 Discharge Ordered Location: Home jl9 Condition: Stable jl9 Diagnosis - Chest pain, unspecified jl9 Followup: jl9 - With: Private Physician - When: 1 - 2 days - Reason: Recheck today's complaints, Continuance of care, Re-evaluation by your physician Discharge Instructions: - Discharge Summary Sheet jl9 - Nonspecific Chest Pain, Adult, [id number] jl9 Forms: - Medication Reconciliation Form jl9 - Thank You Letter jl9 - Antibiotic Education jl9 - Prescription Opioid Use jl9 Signatures: Dispatcher [employer] Landry Torres MD MD rn Dibbern, Lauren, RN RN Gokul Murray jl9
--- NOTE | 2022-02-10 17:23 | ER ---
Nurse's Notes [facility] Name: Diandra Shepard Age: 86 yrs Sex: Female : 1935 Arrival Date: 02/10/2022 Time: 14:59 Bed 7 Private MD: David Montoya Diagnosis: Chest pain, unspecified Presentation: 02/10 15:01 Chief complaint: Patient states: Episode of chest pain at 1400 - pain began in chest ld1 and radiated down left arm. Pt reports no pain at this time. Coronavirus screen: At this time, the client does not indicate any symptoms associated with coronavirus-19. Ebola Screen: No symptoms or risks identified at this time. Initial Sepsis Screen: Does the patient meet any 2 criteria? No. Patient's initial sepsis screen is negative. Does the patient have a suspected source of infection? No. Patient's initial sepsis screen is negative. Risk Assessment: Do you want to hurt yourself or someone else? Patient reports no desire to harm self or others. Onset of symptoms was February 10, 2022. 15:01 Method Of Arrival: Ambulatory ld1 15:01 Acuity: VANESSA 3 ld1 Triage Assessment: 15:01 General: Appears in no apparent distress. uncomfortable, Behavior is calm, cooperative, ld1 appropriate for age. Pain: Complains of pain in chest Pain radiates to left arm Pain currently is 0 out of 10 on a pain scale. at worst was 9 out of 10 on a pain scale. Quality of pain is described as pressure, throbbing. EENT: No signs and/or symptoms were reported regarding the EENT system. Neuro: Level of Consciousness is awake, alert, obeys commands, Oriented to person, place, time, situation. Cardiovascular: Capillary refill < 3 seconds Patient's skin is warm and dry. Respiratory: Airway is patent Respiratory effort is even, unlabored. GI: Abdomen is round non-distended. : No signs and/or symptoms were reported regarding the genitourinary system. Derm: No signs and/or symptoms reported regarding the dermatologic system. Musculoskeletal: No signs and/or symptoms reported regarding the musculoskeletal system. Historical: - Allergies: 15:01 Codeine; ld1 15:01 Levaquin; ld1 15:01 Tylenol; ld1 - PMHx: 15:01 Hyperlipidemia; Hypertension; ld1 - PSHx: 15:01 None; ld1 - Immunization history:: Adult Immunizations up to date, Client reports having NOT received the Covid vaccine. - Social history:: Smoking status: Patient denies any tobacco usage or history of. Patient uses alcohol. Screenin:45 Abuse screen: Denies threats or abuse. Denies injuries from another. Nutritional mb8 screening: No deficits noted. Tuberculosis screening: No symptoms or risk factors identified. Fall Risk None identified. Assessment: 16:54 General: Patient reports she had left arm pain earlier today, denies any pain at this mb8 time. . Pain: Denies pain. Pain began no pain at this time. Cardiovascular: Denies chest pain, shortness of breath. Respiratory: Airway is patent Trachea midline Respiratory effort is even, unlabored, Respiratory pattern is regular, symmetrical, Breath sounds are clear bilaterally. Vital Signs: 15:01 BP 165 / 89; Pulse 56; Resp 18; Temp 98.6(TE); Pulse Ox 100% on R/A; Weight 81.65 kg; ld1 Height 5 ft. 2 in. (157.48 cm); Pain 0/10; 16:45 BP 146 / 62; Pulse 58; Resp 16; Pulse Ox 98% on R/A; mb8 16:54 BP 139 / 60; Pulse 60; Resp 16; Pulse Ox 99% ; mb8 15:01 Body Mass Index 32.92 (81.65 kg, 157.48 cm) ld1 ED Course: 14:59 Patient arrived in ED. mr 14:59 David Montoya MD is Private Physician. mr 15:01 Gok[facility] Sanders [facility]. jl9 15:01 Landry Carter MD is Attending Physician. jl9 15:01 Arm band placed on right wrist. ld1 15:06 Triage completed. ld1 15:38 Missed attempt(s): 20 gauge in right antecubital area. Bleeding controlled, band aid dh3 applied, catheter tip intact. 15:42 Initial lab(s) drawn, by hi, sent to lab. Inserted saline lock: 22 gauge in left dh3 antecubital area, using aseptic technique. Blood collected. 15:53 XRAY Chest (1 view) In Process Unspecified. EDMS 16:34 Martinez, Jorge, RN is Primary Nurse. mb8 16:45 Patient has correct armband on for positive identification. Bed in low position. Call mb8 light in reach. Side rails up X2. Client placed on continuous cardiac and pulse oximetry monitoring. NIBP monitoring applied. cbx operator on. 16:45 No provider procedures requiring assistance completed. Patient maintains SpO2 mb8 saturation greater than 95% on room air. 17:42 IV discontinued, intact, bleeding controlled, No redness/swelling at site. Pressure mb8 dressing applied. Administered Medications: No medications were administered Medication: 16:44 VIS not applicable for this client. mb8 Outcome: 17:23 Discharge ordered by MD. okeefe 17:41 Discharged to home ambulatory. mb8 17:41 Condition: stable 17:41 Discharge instructions given to patient, Instructed on discharge instructions, follow up and referral plans. Demonstrated understanding of instructions, follow-up care. 17:42 Patient left the ED. mb8 Signatures: Dispatcher [employer] ROSA M BeniHeather mr KirklandJeannette 3 Nubia Godinez, RN RN [email or web address] Gokul Sanders jl9 Jorge Martinez RN RN mb8
[2022-02-12 06:17] VITALS: TEMP 98.6
[2022-02-12 06:22] VITALS: BP 139/60; O2SAT 99
--- NOTE | 2022-02-13 14:13 | EKG ---
Test Date: 2022-02-10 Test Time: 15:14:56 Forestry Supervisor: KODAK MEASUREMENT RESULTS: Intervals: Rate: 92 MT: QRSD: 94 QT: 364 QTc: 450 [place]: P: MT: QRS: -28 T: 137 INTERPRETIVE STATEMENTS: Atrial fibrillation Moderate voltage criteria for LVH, may be normal variant ST & T wave abnormality, consider lateral ischemia or digitalis effect Abnormal ECG Compared to ECG 06/13/2021 11:02:08 Left ventricular hypertrophy now present ST (T wave) deviation now present Sinus bradycardia no longer present T-wave abnormality no longer present Possible ischemia still present Electronically Signed On 02-13-22 14:10:02 CDT by Edmond Reyes
== END 2022-02-10 17:42 | disposition home or self-care (01) ==
LOC: ER 14:55
DX: R07.9 Chest pain, unspecified (principal); Z20.822 Contact with and (suspected) exposure to COVID-19; I10 Essential (primary) hypertension; Z88.1 Allergy status to other antibiotic agents; Z88.5 Allergy status to narcotic agent; Z88.6 Allergy status to analgesic agent
CPT/HCPCS: 93005; 85025; 80048; 36415; 81003; 84484; 87804 ×2; 71045; 99284; U0003

== ENCOUNTER 2022-12-14 12:01 | Emergency (ER) | payer OTHER ==
--- OUTSIDE RECORDS SUMMARY | 2022-12-14 12:05 | XMS REPORT | Continuity of Care Document ---
:1935 Author Organization [facility] t Address [address] [facility] [address] [place] [address] Care Team Providers Name Role Phone David Montoya MD Primary Care Physician KAREN NAZARIO Attending Clinician Unavailable KAREN NAZARIO Attending Clinician Unavailable Doctor Unassigned, [place] Attending Clinician Unavailable ESCOBAR BARROW Attending Clinician Unavailable 2, [facility] Attending Clinician Unavailable RADIOLOGY Attending Clinician Unavailable Radiology Attending Clinician Unavailable LISA BRYANT Attending Clinician Unavailable KAREN NAZARIO Admitting Clinician Unavailable JAE LIRA Admitting Clinician Unavailable Payers Payer Name Policy Type Policy Number Effective Date Expiration Date Isak baltazar [employer] [id number] 2021 00:00:00 SPRING Problems Condition Condition Condition Status Onset Resolution Last Treating Co mments Source Name Details Category Date Date Treatment Clinician Date Type 2 Type 2 Disease Active Univers diabetes diabetes 130 ity of mellitus mellitus 00:00: [place] without without 00 Medical complicati complicati Br anch on, on, without without long-term long-term current current use of use of insulin insulin Primary Primary Disease Active Univers hypertensi hypertensi 1-30 it y of on on 00:00: [place] 00 Medical Branch Vaginal Vaginal Disease Active Overview: Univ ers prolapse prolapse -30 Formattin ity of 00:00: g of this [place] 00 note Medical might be Branch different from the original. Added automatic ally from request for surgery [id number] Rectal Rectal Disease Active Methodi bleeding bleeding 09-14 00:00: Hospita 00 l Indigestio Indigestio Disease Active 2019-0 M ethodi n n 09-14 st 00:00: Hospita 00 l Flatulence Flatulence Disease Active 2019-0 M ethodi , , 09-14 st eructation eructation 00:00: Ho spita and gas and gas 00 l pain pain Allergies, Adverse Reactions, Alerts Allergy Allergy Status Severity Reaction(s) Onset Inactive Treating Comm ents Source Name Type Date Date Clinician NO KNOWN Drug Active Univers ALLERGIE Class ity of S [facility] Family History Family Member Diagnosis Comments Start Date Stop Date Source Natural father [facility] Natural mother [facility] Natural sister Breast cancer [facility] Social History Social Habit Start Date Stop Date Quantity Comments Source History SDOH [facility] Alcohol Std Drinks Hospit al History SDHI [facility] Alcohol B[facility] Hospital Gender identity [facility] Sexual orientation [facility] Exposure to 2022-09-01 2022-09-11 Not sure University SARS-CoV-2 (event) 00:00:00 14:25:00 [facility] Tobacco use and 2019-09-15 2019-09-15 Smokeless [facility] exposure 00:00:00 00:00:00 tobacco non-user Hospital History SDOH 2019-09-15 2019-09-15 1 [facility] Alcohol Frequency 00:00:00 00:00:00 Hospita l Alcohol intake 2019-09-15 2019-09-15 Lifetime Druze 00:00:00 00:00:00 non-drinker Hospital (finding) History of Social 2019-09-15 2019-09-[address] function 00:00:00 00:00:00 Hospital Sex Assigned At [birth year] [facility] 00:00:00 00:00:00 Hospital Smoking Status Start Date Stop Date Source Tobacco smoking consumption [facility] Never smoked tobacco [facility]spital Medications Ordered Filled Start Stop Current Ordering Indication Dosage Frequency Signature Comments Components Source Medication Medication Date Date Medication? Clinician (SIG) Name Name estradioL Yes [id number] Apply 1g Univers (ESTRACE) 09-15 vaginally ity o f 0.01 % (0.1 00:00: at bedtime [place] mg/gram) 00 3 times Medical vaginal per week Branch cream (Sunday//) estradioL Yes [id number] Apply 1g Univers (ESTRACE) 4-28 vaginally ity o f 0.01 % (0.1 00:00: at bedtime [place] mg/gram) 00 3 times Medical vaginal per week Branch cream () estradioL 0 Yes [id number] Apply 1g Univers (ESTRACE) 4-28 vaginally ity o f 0.01 % (0.1 00:00: at bedtime [place] mg/gram) 00 3 times Medical vaginal per week Branch cream () estradioL 2022-0 Yes [id number] Apply 1g Univers (ESTRACE) 4-28 vaginally ity o f 0.01 % (0.1 00:00: at bedtime [place] mg/gram) 00 3 times Medical vaginal per week Branch cream () estradioL 0 Yes [id number] Apply 1g Univers (ESTRACE) 3-10 vaginally ity o f 0.01 % (0.1 00:00: at bedtime [place] mg/gram) 00 every Medical vaginal night for Branch cream 4 weeks estradioL 2022-0 Yes [id number] Apply 1g Univers (ESTRACE) 3-10 vaginally ity o f 0.01 % (0.1 00:00: at bedtime [place] mg/gram) 00 every Medical vaginal night for Branch cream 4 weeks estradioL 0 Yes [id number] Apply 1g Univers (ESTRACE) 3-10 vaginally ity o f 0.01 % (0.1 00:00: at bedtime [place] mg/gram) 00 every Medical vaginal night for Branch cream 4 weeks estradioL 2022-0 Yes [id number] Apply 1g Univers (ESTRACE) 3-10 vaginally ity o f 0.01 % (0.1 00:00: at bedtime [place] mg/gram) 00 every Medical vaginal night for Branch cream 4 weeks estradioL 2022-0 Yes [id number] Apply 1g Univers (ESTRACE) 3-10 vaginally ity o f 0.01 % (0.1 00:00: at bedtime [place] mg/gram) 00 every Medical vaginal night for Branch cream 4 weeks estradioL 2022-0 Yes [id number] Apply 1g Univers (ESTRACE) 3-10 vaginally ity o f 0.01 % (0.1 00:00: at bedtime [place] mg/gram) 00 every Medical vaginal night for Branch cream 4 weeks estradioL 2022-0 Yes [id number] Apply 1g Univers (ESTRACE) 3-10 vaginally ity o f 0.01 % (0.1 00:00: at bedtime [place] mg/gram) 00 every Medical vaginal night for Branch cream 4 weeks estradioL 2022-0 Yes [id number] Apply 1g Univers (ESTRACE) 3-10 vaginally ity o f 0.01 % (0.1 00:00: at bedtime [place] mg/gram) 00 every Medical vaginal night for Branch cream 4 weeks estradioL 2022-0 Yes [id number] Apply 1g Univers (ESTRACE) 3-10 vaginally ity o f 0.01 % (0.1 00:00: at bedtime [place] mg/gram) 00 every Medical vaginal night for Branch cream 4 weeks estradioL 2022-0 Yes [id number] Apply 1g Univers (ESTRACE) 3-10 vaginally ity o f 0.01 % (0.1 00:00: at bedtime [place] mg/gram) 00 every Medical vaginal night for Branch cream 4 weeks estradioL 2022-0 Yes [id number] Apply 1g Univers (ESTRACE) 3-10 vaginally ity o f 0.01 % (0.1 00:00: at bedtime [place] mg/gram) 00 every Medical vaginal night for Branch cream 4 weeks estradioL 2022-0 Yes [id number] Apply 1g Univers (ESTRACE) 3-10 vaginally ity o f 0.01 % (0.1 00:00: at bedtime [place] mg/gram) 00 every Medical vaginal night for Branch cream 4 weeks Fluticasone 2022-0 Yes Univer s -Salmeterol 3-09 ity of 100-50 00:00: [place] mcg/dose 00 Medical inhalation Branch disk Fluticasone 2022-0 Yes Univer s -Salmeterol 3-09 ity of 100-50 00:00: [place] mcg/dose 00 Medical inhalation Branch disk Fluticasone 2022-0 Yes Univer s -Salmeterol 3-09 ity of 100-50 00:00: [place] mcg/dose 00 Medical inhalation Branch disk Fluticasone 2022-0 Yes Univer s -Salmeterol 3-09 ity of 100-50 00:00: [place] mcg/dose 00 Medical inhalation Branch disk Fluticasone 2022-0 Yes Univer s -Salmeterol 3-09 ity of 100-50 00:00: [place] mcg/dose 00 Medical inhalation Branch disk Fluticasone 2022-0 Yes Univer s -Salmeterol 3-09 ity of 100-50 00:00: [place] mcg/dose 00 Medical inhalation Branch disk Fluticasone 3-0 Yes Univer s -Salmeterol 3-09 ity of 100-50 00:00: [place] mcg/dose 00 Medical inhalation Branch disk Fluticasone 2022-0 Yes Univer s -Salmeterol 3-09 ity of 100-50 00:00: [place] mcg/dose 00 Medical inhalation Branch disk Fluticasone 2022-0 Yes Univer s -Salmeterol 3-09 ity of 100-50 00:00: [place] mcg/dose 00 Medical inhalation Branch disk Fluticasone 2022-0 Yes Univer s -Salmeterol 3-09 ity of 100-50 00:00: [place] mcg/dose 00 Medical inhalation Branch disk Fluticasone 2022-0 Yes Univer s -Salmeterol 3-09 ity of 100-50 00:00: [place] mcg/dose 00 Medical inhalation Branch disk Fluticasone 2022-0 Yes Univer s -Salmeterol 3-09 ity of 100-50 00:00: [place] mcg/dose 00 Medical inhalation Branch disk No known No No known Unive rs medications 1-30 medication it y of 16:51: s [address] No known 0 No No known Unive rs medications 1-30 medication it y of 13:24: s [address] No known 0 No No known Unive rs medications 1-30 medication it y of 13:24: [address] No known No No known Unive rs medications 1-30 medication it y of 13:24: [address] No known 0 No No known Unive rs medications 1-30 medication it y of 13:24: [address] hydrOXYzine 0 Yes TOME MICHEAL Un zahida 10 mg 1-25 (1) ity of tablet 00:00: TABLETA(S) [place] 00 POR LA Medical BOCA EN LA Branch NOCHE LI NECESARIO PARA DORMIR. hydrOXYzine Yes TOME MICHEAL Un zahida 10 mg 1-25 (1) ity of tablet 00:00: TABLETA(S) [place] 00 POR LA Medical BOCA EN LA Branch NOCHE LI NECESARIO PARA DORMIR. hydrOXYzine Yes TOME MICHEAL Un zahida 10 mg 1-25 (1) ity of tablet 00:00: TABLETA(S) [place] 00 POR LA Medical BOCA EN LA Branch NOCHE LI NECESARIO PARA DORMIR. hydrOXYzine Yes TOME MICHEAL Un zahida 10 mg 1-25 (1) ity of tablet 00:00: TABLETA(S) [place] 00 POR LA Medical BOCA EN LA Branch NOCHE LI NECESARIO PARA DORMIR. hydrOXYzine Yes TOME MICHEAL Un zahida 10 mg 1-25 (1) ity of tablet 00:00: TABLETA(S) 00 POR LA Medical BOCA EN LA Branch NOCHE LI NECESARIO PARA DORMIR. hydrOXYzine Yes TOME MICHEAL Un zahida 10 mg 1-25 (1) ity of tablet 00:00: TABLETA(S) 00 POR LA Medical BOCA EN LA Branch NOCHE LI NECESARIO PARA DORMIR. hydrOXYzine Yes TOME MICHEAL Un zahida 10 mg 1-25 (1) ity of tablet 00:00: TABLETA(S) 00 POR LA Medical BOCA EN LA Branch NOCHE LI NECESARIO PARA DORMIR. hydrOXYzine Yes TOME MICHEAL Un zahida 10 mg 1-25 (1) ity of tablet 00:00: TABLETA(S) 00 POR LA Medical BOCA EN LA Branch NOCHE LI NECESARIO PARA DORMIR. hydrOXYzine Yes TOME MICHEAL Un zahida 10 mg 1-25 (1) ity of tablet 00:00: TABLETA(S) 00 POR LA Medical BOCA EN LA Branch NOCHE LI NECESARIO PARA DORMIR. hydrOXYzine Yes TOME MICHEAL Un zahida 10 mg 1-25 (1) ity of tablet 00:00: TABLETA(S) [place] 00 POR LA Medical BOCA EN LA Branch NOCHE LI NECESARIO PARA DORMIR. hydrOXYzine 2022-0 Yes TOME MICHEAL Un zahida 10 mg 1-25 (1) ity of tablet 00:00: TABLETA(S) [place] 00 POR LA Medical BOCA EN LA Branch NOCHE LI NECESARIO PARA DORMIR. hydrOXYzine 0 Yes TOME MICHEAL Un zahida 10 mg 1-25 (1) ity of tablet 00:00: TABLETA(S) [place] 00 POR LA Medical BOCA EN LA Branch NOCHE LI NECESARIO PARA DORMIR. carvediloL 0 Yes TOME MICHEAL Uni vers 3.125 mg 1-24 (1) ity of tablet 00:00: TABLETA(S) [place] 00 POR LA Medical BOCA DOS Branch VECES AL FREEDOM. carvediloL 0 Yes TOME MICHEAL Uni vers 3.125 mg 1-24 (1) ity of tablet 00:00: TABLETA(S) [place] 00 POR LA Medical BOCA DOS Branch VECES AL FREEDOM. carvediloL 0 Yes TOME MICHEAL Uni vers 3.125 mg 1-24 (1) ity of tablet 00:00: TABLETA(S) [place] 00 POR LA Medical BOCA DOS Branch VECES AL FREEDOM. carvediloL 0 Yes TOME MICHEAL Uni vers 3.125 mg 1-24 (1) ity of tablet 00:00: TABLETA(S) [place] 00 POR LA Medical BOCA DOS Branch VECES AL FREEDOM. carvediloL 0 Yes TOME MICHEAL Uni vers 3.125 mg 1-24 (1) ity of tablet 00:00: TABLETA(S) [place] 00 POR LA Medical BOCA DOS Branch VECES AL FREEDOM. carvediloL 0 Yes TOME MICHEAL Uni vers 3.125 mg 1-24 (1) ity of tablet 00:00: TABLETA(S) [place] 00 POR LA Medical BOCA DOS Branch VECES AL FREEDOM. carvediloL 0 Yes TOME MICHEAL Uni vers 3.125 mg 1-24 (1) ity of tablet 00:00: TABLETA(S) [place] 00 POR LA Medical BOCA DOS Branch VECES AL FREEDOM. carvediloL Yes TOME MICHEAL Uni vers 3.125 mg 1-24 (1) ity of tablet 00:00: TABLETA(S) 00 POR LA Medical BOCA DOS Branch VECES AL FREEDOM. carvediloL Yes TOME MICHEAL Uni vers 3.125 mg 1-24 (1) ity of tablet 00:00: TABLETA(S) 00 POR LA Medical BOCA DOS Branch VECES AL FREEDOM. carvediloL Yes TOME MICHEAL Uni vers 3.125 mg 1-24 (1) ity of tablet 00:00: TABLETA(S) 00 POR LA Medical BOCA DOS Branch VECES AL FREEDOM. carvediloL Yes TOME MICHEAL Uni vers 3.125 mg 1-24 (1) ity of tablet 00:00: TABLETA(S) 00 POR LA Medical BOCA DOS Branch VECES AL FREEDOM. carvediloL Yes TOME MICHEAL Uni vers 3.125 mg 1-24 (1) ity of tablet 00:00: TABLETA(S) 00 POR LA Medical BOCA DOS Branch VECES AL FREEDOM. XARELTO Yes TOME MICHEAL Uni vers mg tablet - (1) ity of 00:00: TABLETA(S) 00 POR LA Medical BOCA MICHEAL Branch VEZ AL FREEDOM. XARELTO Yes TOME MICHEAL Uni vers mg tablet -13 (1) ity of 00:00: TABLETA(S) 00 POR LA Medical BOCA MICHEAL Branch VEZ AL FREEDOM. XARELTO Yes TOME MICHEAL Uni vers mg tablet - (1) ity of 00:00: TABLETA(S) 00 POR LA Medical BOCA MICHEAL Branch VEZ AL FREEDOM. XARELTO Yes TOME MICHEAL Uni vers mg tablet - (1) ity of 00:00: TABLETA(S) [place] 00 POR LA Medical BOCA MICHEAL Branch VEZ AL FREEDOM. XARELTO Yes TOME MICHEAL Uni vers mg tablet -13 (1) ity of 00:00: TABLETA(S) 00 POR LA Medical BOCA MCIHEAL Branch VEZ AL FREEDOM. XARELTO Yes TOME MICHEAL Uni vers mg tablet 1-13 (1) ity of 00:00: TABLETA(S) 00 POR LA Medical BOCA MICHEAL Branch VEZ AL FREEDOM. XARELTO Yes TOME MICHEAL Uni vers mg tablet - (1) ity of 00:00: TABLETA(S) 00 POR LA Medical BOCA MICHEAL Branch VEZ AL FREEDOM. XARELTO Yes TOME MICHEAL Uni vers mg tablet - (1) ity of 00:00: TABLETA(S) [place] 00 POR LA Medical BOCA MICHEAL Branch VEZ AL FREEDOM. XARELTO Yes TOME MICHEAL Uni vers mg tablet - (1) ity of 00:00: TABLETA(S) 00 POR LA Medical BOCA MICHEAL Branch VEZ AL FREEDOM. XARELTO Yes TOME MICHEAL Uni vers mg tablet - (1) ity of 00:00: TABLETA(S) 00 POR LA Medical BOCA MICHEAL Branch VEZ AL FREEDOM. XARELTO Yes TOME MICHEAL Uni vers mg tablet - (1) ity of 00:00: TABLETA(S) 00 POR LA Medical BOCA MICHEAL Branch VEZ AL FREEDOM. XARELTO Yes TOME MICHEAL Uni vers mg tablet - (1) ity of 00:00: TABLETA(S) 00 POR LA Medical BOCA MICHEAL Branch VEZ AL FREEDOM. famotidine 2020-0 Yes 20mg Q.5D Take 20 mg M ethodi (PEPCID) 20 4-[address] MG tablet 11:38: (two) Hospita 12 times a l day. famotidine 2020-0 Yes 20mg Q.5D Take 20 mg M ethodi (PEPCID) 20 4-[address] MG tablet 11:38: (two) Hospita 12 times a l day. metroNIDAZO 2020-0 Yes 250mg [id number] Take 250 Methodi LE (FLAGYL) 4-27 [id number] mg by s t 250 MG 09:00: 3D mouth 3 Hospita tablet 02 (three) l times a day. metroNIDAZO 2020-0 Yes 250mg Q.[id number] Take 250 Methodi LE (FLAGYL) 4-27 [id number] mg by s t 250 MG 09:00: 3D mouth 3 Hospita tablet 02 (three) l times a day. lisinopriL 2020-0 Yes QD Take by Meth [...] day with meals. hydrOXYzine 2020-0 Yes 10mg Q.[id number] Take 10 mg [facility]i (ATARAX) 10 4-27 [id number] by mouth [address] MG tablet 08:59: 3D (three) Hospi ta 57 times a l day as needed for itching. rivaroxaban 2020-0 Yes 20mg Take 20 mg [facility] (XARELTO) 4-[address] 20 mg 08:59: Hospita tablet 57 l atorvastati 2020-0 Yes 10mg QD Take 10 [...] day with meals. hydrOXYzine 2020-0 Yes 10mg Q.[id number] Take 10 mg [facility] (ATARAX) 10 4-27 [id number] by mouth [address] MG tablet 08:59: 3D (three) Hospi ta 57 times a l day as needed for itching. rivaroxaban 2020-0 Yes 20mg Take 20 mg [facility] (XARELTO) 4-[address] 20 mg 08:59: Hospita tablet 57 l atorvastati 2020-0 Yes 10mg QD Take 10 mg Methodi n (LIPITOR) 4-[address] 10 MG 08:59: daily. Hospita tablet 57 l Vital Signs Vital Name Observation Time Observation Value Comments Source Systolic blood 2022-11-10 20:55:00 143 mm[Hg] Univer [facility]ity of [facility] Diastolic blood 2022-11-10 20:55:00 69 mm[Hg] Unive rsity of [facility] Heart rate 2022-11-10 20:55:00 72 /min Universi ty [facility] Body temperature 2022-11-10 20:55:00 36.83 Shakira [facility] 2022-11-10 20:55:00 18 /min [facility] ersity [facility] Body height 2022-11-10 20:55:00 157.5 cm Universi ty [facility] Body weight 2022-11-10 20:55:00 80.377 kg Universi ty [facility] BMI 2022-11-10 20:55:00 32.41 kg/m2 Universi ty [facility] Systolic blood 2022-09-11 19:35:00 138 mm[Hg] Univer sity of [facility] Diastolic blood 2022-09-11 19:35:00 61 mm[Hg] Unive rsity of [facility] Heart rate 2022-09-11 19:35:00 65 /min Universi ty [facility] Body temperature 2022-09-11 19:35:00 36.67 Shakira [facility] ersity [facility] Respiratory rate 2022-09-11 19:35:00 18 /min [facility] ersity [facility] Body height 2022-09-11 19:35:00 157.5 cm Universi ty [facility] Body weight 2022-09-11 19:35:00 80.287 kg Universi ty [facility] BMI 2022-09-11 19:35:00 32.37 kg/m2 [facility]i [facility] [place] [facility] Systolic blood 2022-07-28 19:14:00 140 mm[Hg] Univer sity of pressure [place] [facility] Diastolic blood 2022-07-28 19:14:00 68 mm[Hg] Unive rsity of pressure [place] [facility] Heart rate 2022-07-28 19:13:00 77 /min Universi ty of [facility] Body temperature 2022-07-28 19:13:00 37.06 Shakira Univ ersity [facility] [place] [facility] Respiratory rate 2022-07-28 19:13:00 18 /min Univ ers[facility] [place] [facility] Body height 2022-07-28 19:13:00 157.5 cm Universi ty [facility] [place] [facility] Body weight 2022-07-28 19:13:00 78.109 kg [facility]i [facility] [place] [facility] BMI 2022-07-28 19:13:00 31.50 kg/m2 [facility] [place] [facility] Systolic blood 2022-06-19 19:20:00 128 mm[Hg] Univer sity of pressure [place] [facility] Diastolic blood 2022-06-19 19:20:00 74 mm[Hg] Unive rsity of pressure [place] [facility] Heart rate 2022-06-19 19:20:00 67 /min Universi [facility] [place] [facility] Body temperature 2022-06-19 19:20:00 36.78 Shakira Univ ers[facility] [place] [facility] Respiratory rate 2022-06-19 19:20:00 18 /min Univ ers[facility] [place] [facility] Body height 2022-06-19 19:20:00 157.5 cm [facility]i [facility] [place] [facility] Body weight 2022-06-19 19:20:00 78.019 kg [facility] [place] [facility] BMI 2022-06-19 19:20:00 31.46 kg/m2 [facility] [place] [facility] Procedures Procedure Date / Time Performing Clinician Source Performed EXTERNAL PROVIDER 2022-08-25 05:01:00 Doctor Unassigned, No [facility] Name Medical Branch US PELVIS COMPLETE WITH 2022-06-26 16:40:00 Karen Nazario [facility] TRANSVAGINAL [facility] Branch POCT URINALYSIS W/O 2022-06-19 19:35:00 Karen Nazario [facility] SPECIFIC GRAVITY Medical Branch REFERRAL- 2022-06-02 06:01:00 Doctor Unassigned, No [facility] REQUEST/RESPONSE Name Medical Branch DEXA AXIAL (HIP AND 2022-03-27 16:33:36 Requisition, Paper [facility] SPINE) Medical Branch ASSIGNMENT OF BENEFITS 2022-03-27 16:13:43 Doctor Unassigned, No [facility] Name Medical Branch Plan of Care Planned Activity Planned Date Details Comments Source Future Scheduled 2022-11-08 COVID-19 VACCINE (#1) [facility] [place] [facility] Hospital Test 22:50:01 [code = COVID-19 VACCINE (#1)] Future Scheduled 2022-11-08 SHINGLES VACCINES (1 [facility] Hospital Test 22:50:01 of 2) [code = SHINGLES VACCINES (1 of 2)] Future Scheduled 2022-11-08 65+ PNEUMOCOCCAL Methodi Hospital Test 22:50:01 VACCINE (1 - PCV) [code = 65+ PNEUMOCOCCAL VACCINE (1 - PCV)] Future Scheduled 2022-11-08 INFLUENZA VACCINE Method ist Hospital Test 22:50:01 [code = INFLUENZA VACCINE] Future Scheduled 2022-01-17 HEPATITIS B VACCINES Met [facility] Hospital Test 21:45:50 (1 of 3 - 3-dose series) [code = HEPATITIS B VACCINES (1 of 3 - 3-dose series)] Future Scheduled 2022-01-17 COVID-19 VACCINE (#1) [facility] [place] [facility] Hospital Test 21:45:50 [code = COVID-19 VACCINE (#1)] Future Scheduled 2022-01-17 SHINGLES VACCINES (1 Met [facility] Hospital Test 21:45:50 of 2) [code = SHINGLES [...] Date/Time Type Type Clinicians Facility Department ID 2022-07-11 Outpatient R NISHI NAZARIO LAB SUPPORT SERVICE TECH [id number] Univers 10:12:22 KAREN moreno [facility] 2022-11-10 2022-11-10 Office [facility] [id number] Univers 15:30:00 16:00:00 Visit Karen EVANS [id number] i ty [id number] [id number] [facility] 0[address] [facility] 2022-11-10 2022-11-10 Outpatient R KAREN NAZARIO [facility] [id number] Univers 15:30:00 15:30:00 KAREN NAZARIO [facility] 2022-10-13 2022-10-13 Outpatient R KAREN NAZARIO [facility] [id number] Univers 13:30:00 13:30:00 ARAVINDJORGEDONNA moreno [facility] 2022-10-09 2022-10-09 Outpatient R JORGE NAZARIOHA [facility] [id number] Univers 10:00:00 10:00:00 ARAVINDJORGEDONNA sevillawoody [facility] 2022-09-15 2022-09-15 Telephone [facility] [id number] Univers 00:00:00 00:00:00 Karen EVANS [id number] i [id number] [phone] [facility] 134 [facility] 2022-09-11 2022-09-11 Outpatient R KAREN NAZARIO [facility] [id number] Univers 14:30:00 15:25:07 KAREN NAZARIO [facility] 2022-09-11 2022-09-11 [facility] [id number] Univers 14:30:00 15:25:07 Visit Karen EVANS [id number] i ty [facility] [id number] [id number] [facility] [address] [place] [address] 2022-08-28 2022-08-28 Outpatient R JORGE NAZARIOHA [facility] [id number] Univers 14:00:00 14:00:00 ARAVINDJORGEDONNA moreno [facility] 2022-08-25 2022-08-25 Orders Doctor THIERRY [id number] Univers 00:00:00 00:00:00 Only Unassigned, AMIRA [id number] [place] [facility] [id number] A[place] as [id number] [address] 2022-08-25 2022-08-25 Telephone [facility] [id number] Univers 00:00:00 00:00:00 Karen EVANS [id number] i ty [id number] [id number] [address] 2022-07-28 2022-07-28 [facility] [id number] Univers 13:00:00 14:03:34 KAREN diwoody [facility] 2022-07-28 2022-07-28 Office [facility] [id number] Univers 13:00:00 14:03:34 Visit Karne EVANS [id number] i ty [id number] [id number] [address] 2022-07-24 2022-07-24 [facility] [id number] Univers 13:30:00 13:30:00 KAREN diwoody [facility] 2022-07-11 2022-07-11 Outpatient R DANIAL [facility] [id number] Univers 14:40:00 14:40:00 ESCOBAR moreno o f [facility] 2022-07-10 2022-07-10 Outpatient [facility] [id number] Univers 09:00:00 09:00:00 KAREN moreno [facility] 2022-06-29 2022-06-29 Telephone [facility] [id number] Univers 00:00:00 00:00:00 Karen [facility] [id number] [id number] [id number] [address] OFFICE BUILDING 2022-06-26 2022-06-26 Outpatient [facility] [id number] Univers 09:23:36 23:59:00 KAREN moreno [facility] 2022-06-26 2022-06-26 Hospital [facility] [id number] Univers 09:23:36 23:59:00 Encounter Karen EVANS [id number] [id number] [id number] [facility] [address] 2022-06-19 2022-06-19 Director Long Term Care 2, Adc Lab [facility] [id number] Univers 14:30:00 14:45:00 Visit Karen Nazario [id number] ity of [facility] [id number] [phone] Wi dical NAL 353 [facility] 2022-06-19 2022-06-19 [facility] [id number] Univers 13:00:00 14:21:26 KAREN moreno [facility] 2022-06-19 2022-06-19 Office [facility] [id number] Univers 13:00:00 14:21:26 Visit Karen GARCIAROBINA [id number] i ty of [id number] [phone] Wi dical NAL 098 [facility] 2022-06-19 2022-06-19 Prep For [facility] [id number] Univers 00:00:00 00:00:00 Surgery Karen EVANS [id number] i [id number] [phone] Wi dical NAL 098 [facility] 2022-06-02 2022-06-02 Orders Doctor THIERRY [id number] Univers 00:00:00 00:00:00 Only Unassigned, AMIRA [id number] ity [place] [facility] [id number] Aydin as [phone] [facility] [address] 2022-03-27 2022-03-27 Outpatient R RADIOLOGY [facility] [id number] Univers 10:18:11 23:59:00 ity of [facility] 2022-03-27 2022-03-27 Hospital Radiology [facility] [id number] Univers 10:10:00 23:59:00 Encounter [place] [id number] [id number] [phone] [facility] [address] 2022-03-27 2022-03-27 Orders Doctor THIERRY [id number] Univers 00:00:00 00:00:00 Only Unassigned, AMIRA [id number] [place] [facility] [id number] Aydin as [phone] [facility] [address] 2019-09-15 2019-09-15 Outpatient [facility] 123 [id number] [place] 00:00:00 00:00:00 LISA DUENAS [address] Results Test Description Test Time Test Comments Results Result Comments Source POCT URINALYSIS W/O SPECIFIC GRAVITY 2022-06-19 19:35:00 Test Item Value Reference Range Interpretation Comme nts POCT PH U (test code = 3254) 7 mg/dl 5-8 POCT U LEUK EST (test code = negative Negative - Negative 3263) POCT U NIT (test code = 3262) negative Negative - Negative POCT U PROT (test code = 3259) negative Negative - Negative POCT U GLU (test code = 3256) negative Negative - Negative POCT U KETONE (test code = negative Negative - Negative 3258) POCT U BLD (test code = 3257) negative Negative - Negative GRUPO (test code = GRUPO) Per order PVR by bladder scan = ?0 ml. Results [facility] provider. [facility] [id number] 19:35:00 Test Item Value Reference Range Interpretation Comments POCT PH U (test code 7 mg/dl 5-8 = 3254) POCT U LEUK EST negative Negative - Negative (test code = 3263) POCT U NIT (test negative Negative - Negative code = 3262) POCT U PROT (test negative Negative - Negative code = 3259) POCT U GLU (test negative Negative - Negative code = 3256) POCT U KETONE (test negative Negative - Negative code = 3258) POCT U BLD (test negative Negative - Negative code = 3257) GRUPO (test code = Per order PVR by GRUPO) bladder scan = ?0 ml. Results reported to provider. [facility]/O SPECIFIC [id number] 19:35:00 Test Item Value Reference Range Interpretation Comments POCT PH U (test code 7 mg/dl 5-8 = 3254) POCT U LEUK EST negative Negative - Negative (test code = 3263) POCT U NIT (test negative Negative - Negative code = 3262) POCT U PROT (test negative Negative - Negative code = 3259) POCT U GLU (test negative Negative - Negative code = 3256) POCT U KETONE (test negative Negative - Negative code = 3258) POCT U BLD (test negative Negative - Negative code = 3257) GRUPO (test code = Per order PVR by GRUPO) bladder scan = ?0 ml. Results reported to provider. [facility]/O SPECIFIC [id number] 19:35:00 Test Item Value Reference Range Interpretation Comments POCT PH U (test code 7 mg/dl 5-8 = 3254) POCT U LEUK EST negative Negative - Negative (test code = 3263) POCT U NIT (test negative Negative - Negative code = 3262) POCT U PROT (test negative Negative - Negative code = 3259) POCT U GLU (test negative Negative - Negative code = 3256) POCT U KETONE (test negative Negative - Negative code = 3258) POCT U BLD (test negative Negative - Negative code = 3257) GRUPO (test code = Per order PVR by GRUPO) bladder scan = ?0 ml. Results reported to provider. [facility]
[2022-12-14 13:17] LABS: Absolute Lymphocytes (CBC) 1.8 K/uL (0.7-4.9); Hematocrit 23.4 % (36.0-45.0); Lymphocytes % 25.4 % (15.3-44.8); MCV 63.1 fL (80-100); MPV 8.7 fL (7.6-11.3); RBC Red Blood Cell Count 3.71 M/uL (3.86-4.86)
[2022-12-14 13:19] LABS: Protime INR 1.9
[2022-12-14 13:31] LABS: Potassium 3.8 mEq/L (3.5-5.1)
[2022-12-14] MEDS ORDERED: NA CHLORIDE 0.9% 250 ML ONE (14:22)
--- NOTE | 2022-12-14 14:23 | ER ---
Nurse's Notes [facility] Name: Diandra Shepard Age: 87 yrs Sex: Female : 1935 Arrival Date: 12/14/2022 Time: 12:01 Bed 6 Private MD: David Montoya Diagnosis: Critical anemia, generalized weakness Presentation: 12/14 12:30 Chief complaint: Patient states: her doctor (Lindsay) told her she was anemic and needs a iw blood transfusion. Coronavirus screen: At this time, the client does not indicate any symptoms associated with coronavirus-19. Ebola Screen: Patient negative for fever greater than or equal to 101.5 degrees Fahrenheit, and additional compatible Ebola Virus Disease symptoms Patient denies exposure to infectious person. Patient denies travel to an Ebola-affected area in the 21 days before illness onset. No symptoms or risks identified at this time. Initial Sepsis Screen: Does the patient meet any 2 criteria? No. Patient's initial sepsis screen is negative. Does the patient have a suspected source of infection? No. Patient's initial sepsis screen is negative. Risk Assessment: Do you want to hurt yourself or someone else? Patient reports no desire to harm self or others. Onset of symptoms was December 14, 2022. 12:30 Method Of Arrival: Ambulatory iw 12:30 Acuity: VANESSA 3 iw Historical: - Allergies: 12:31 Codeine; iw 12:31 Levaquin; iw 12:31 Tylenol; iw - PMHx: 12:31 Hyperlipidemia; Hypertension; iw - Immunization history:: Adult Immunizations up to date. - Social history:: Smoking status: unknown. Screenin:14 [facility] ED Fall Risk Assessment (Adult) History of falling in the last 3 months, cm10 including since admission No falls in past 3 months (0 pts) Confusion or Disorientation No (0 pts) Intoxicated or Sedated No (0 pts) Impaired Gait No (0 pts) Mobility Assist Device Used No (0 pt) Altered Elimination No (0 pt) Score/Fall Risk Level 0 - 2 = Low Risk Oriented to surroundings, Maintained a safe environment, Hourly rounding (assess needs \T\ fall precautionary measures) done. 21:46 Abuse screen: Denies threats or abuse. Denies injuries from another. Nutritional kd3 screening: No deficits noted. Tuberculosis screening: No symptoms or risk factors identified. Assessment: 13:14 General: Appears in no apparent distress. comfortable, Behavior is calm, cooperative. cm10 Pain: Denies pain. Neuro: No deficits noted. Level of Consciousness is awake, alert, obeys commands, Oriented to person, place, time, situation. Cardiovascular: No deficits noted. Respiratory: No deficits noted. Airway is patent Respiratory effort is even, unlabored, Respiratory pattern is regular, symmetrical. Derm: No deficits noted. Skin is intact, Skin is pink, warm \T\ dry. normal. 13:52 Reassessment: No changes from previously documented assessment. Patient and/or family cm10 updated on plan of care and expected duration. Pain level reassessed. Patient is alert, oriented x 3, equal unlabored respirations, skin warm/dry/pink. 14:40 Reassessment: Upon receiving blood from blood bank and doing 2 nurse verification, cm10 blood that was sent from blood bank was found to have incorrect BB number and had used the BB number from pts outpatient encounter. New blood band had been placed on pt by this RN when the pt had new orders for a type and screem and had time stamp for 1301. Blood band from outpatient visit had been removed from pt due to protocol when the new order for type and screen had been placed. made aware, Charge Nurse Anel notified and Blood bank contacted due to error in blood received. 15:15 Reassessment: spoke with Ai in Blood Bank, will cut off BB [id number] and replace with iw new type and screen and BB. 16:40 Reassessment: Blood transfusion initiated at this time. See blood transfusion paper cm10 chart. 16:55 Reassessment: Pt tolerating blood transfusion well at this time. No S/S of transfusion cm10 reaction. Rate increased to 125mL/hr. Call light remains in reach. 17:40 Reassessment: Pt tolerating blood transfusion well at this time. No S/S of blood cm10 transfusion reaction. Respirations even and unlabored. Pt remains on continuous cardiac monitoring. 17:40 Reassessment: No changes from previously documented assessment. Patient and/or family cm10 updated on plan of care and expected duration. Pain level reassessed. Patient is alert, oriented x 3, equal unlabored respirations, skin warm/dry/pink. 21:30 General: Blood transfusion complete. No adverse reaction. See chart for vital signs . kd3 General: Appears in no apparent distress. comfortable, Behavior is calm, cooperative. Pain: Denies pain. Neuro: Level of Consciousness is awake, alert, obeys commands, Oriented to person, place, time, situation. Cardiovascular: Patient's skin is warm and dry. Respiratory: Airway is patent Trachea deviated to right Respiratory effort is even, unlabored, Respiratory pattern is regular, symmetrical. Vital Signs: 12:32 BP 127 / 58; Pulse 72; Resp 16; Temp 98.1; Pulse Ox 97% on R/A; Weight 80.29 kg; Height iw 5 ft. 2 in. ; 13:00 BP 128 / 58; Pulse 65; Resp 16; Pulse Ox 97% on R/A; cm10 13:30 BP 121 / 50; Pulse 64; Resp 16; Pulse Ox 96% on R/A; cm10 14:00 BP 139 / 62; Pulse 64; Resp 16; Pulse Ox 98% on R/A; cm10 14:30 BP 147 / 62; Pulse 66; Resp 16; Pulse Ox 98% on R/A; cm10 15:00 BP 135 / 56; Pulse 69; Resp 19; Pulse Ox 97% on R/A; cm10 15:30 BP 121 / 62; Pulse 73; Resp 17; Pulse Ox 97% on R/A; cm10 16:00 BP 133 / 51; Pulse 70; Resp 15; Pulse Ox 97% on R/A; cm10 16:30 BP 143 / 63; Pulse 70; Resp 16; Pulse Ox 98% on R/A; cm10 21:31 BP 144 / 68; Pulse 61; Resp 13; Temp 97.2(TE); Pulse Ox 100% on R/A; kd3 12:32 Body Mass Index 32.37 (80.29 kg, 157.48 cm) iw ED Course: 12:04 Patient arrived in ED. am2 12:04 David Montoya MD is Private Physician. am2 12:15 Mari Patel MD is Attending Physician. sp3 12:31 Triage completed. iw 12:31 Arm band placed on. iw 12:43 Elke Santos, RN is Primary Nurse. eh3 13:07 Basic Metabolic Panel Sent. cm10 13:07 CBC with Diff Sent. cm10 13:07 PT-INR Sent. cm10 13:08 Initial lab(s) drawn, by me, sent to lab. Inserted saline lock: 18 gauge in right cm10 forearm, using aseptic technique. Blood collected. 13:13 Patient has correct armband on for positive identification. Bed in low position. Call cm10 light in reach. Side rails up X2. Client placed on continuous cardiac and pulse oximetry monitoring. NIBP monitoring applied. Door closed. Warm blanket given. 13:15 Bb Add On Sent. cm10 14:22 David Montoya MD is Referral Physician. sp3 14:34 Provided Education on: Blood Transfusion. Consent for blood and/or blood product cm10 transfusion explained by staff, explained by physician, signed by patient. 14:34 Inserted saline lock: 20 gauge in left wrist, using aseptic technique. Inserted by cm10 Dian Castro RN. 15:20 Type And Screen Sent. cm10 21:46 No provider procedures requiring assistance completed. IV discontinued, intact, kd3 bleeding controlled, No redness/swelling at site. Pressure dressing applied. Administered Medications: No medications were administered Medication: 13:15 VIS not applicable for this client. cm10 Outcome: 14:23 Discharge ordered by MD. sp3 21:46 Discharged to home ambulatory, with family. kd3 21:46 Condition: stable 21:46 Discharge instructions given to patient, Instructed on discharge instructions, follow up and referral plans. Demonstrated understanding of instructions, follow-up care. 21:46 Patient left the ED. kd3 Signatures: Anel Shetty, RN KIAN iw Madhavi Hamm am2 Mari Patel MD MD sp3 Abril Blanco RN RN kd3 Elke Santos RN RN 3 Dian Castro RN RN cm10 Corrections: (The following items were deleted from the chart) 13:12 13:08 TYPE AND SCREEN+BB.LAB.BRZ drawn and sent. cm10 EDMS 14:34 14:34 Consent for blood and/or blood product transfusion cm10 cm10 15:15 13:08 ABO/RH typing drawn and sent. cm10 EDMS 15:15 13:08 Antibody Screen drawn and sent. cm10 EDMS 17:04 16:40 Reassessment: Blood transfusion initiated at this time. cm10 cm10
--- NOTE | 2022-12-14 14:23 | EDPHYS ---
Physician Documentation [facility] Name: Diandra Shepard Age: 87 yrs Sex: Female : 1935 Arrival Date: 12/14/2022 Time: 12:01 Bed 6 Private MD: David Montoya ED Physician Mari Patel HPI: 12/14 13:08 This 87 yrs old Female presents to ER via Ambulatory with complaints of sp3 Abnormal Lab Results. 13:08 87-year-old female with history of hypertension and hyperlipidemia sent by PCP Dr. prema Montoya for blood transfusion due to low hemoglobin on outpatient labs. Patient denies any symptoms except generalized weakness. She denies chest pain, fever, shortness of breath, rash, bleeding, melena, vomiting, diarrhea, or any other signs or symptoms on ROS at this time.. Historical: - Allergies: 12:31 Codeine; iw 12:31 Levaquin; iw 12:31 Tylenol; iw - PMHx: 12:31 Hyperlipidemia; Hypertension; iw - Immunization history:: Adult Immunizations up to date. - Social history:: Smoking status: unknown. ROS: 13:09 Constitutional: Negative for fever, chills, and weight loss, Eyes: Negative for injury, sp3 pain, redness, and discharge, ENT: Negative for injury, pain, and discharge, Neck: Negative for injury, pain, and swelling, Cardiovascular: Negative for chest pain, palpitations, and edema, Respiratory: Negative for shortness of breath, cough, wheezing, and pleuritic chest pain, Abdomen/GI: Negative for abdominal pain, nausea, vomiting, diarrhea, and constipation, MS/Extremity: Negative for injury and deformity, Skin: Negative for injury, rash, and discoloration, Neuro: Negative for headache, weakness, numbness, tingling, and seizure. 13:09 All other systems are negative. Exam: 13:09 Constitutional: This is a well developed, well nourished patient who is awake, alert, sp3 and in no acute distress. Head/Face: Normocephalic, atraumatic. Eyes: Pupils equal round and reactive to light, extra-ocular motions intact. Lids and lashes normal. Conjunctiva and sclera are non-icteric and not injected. Cornea within normal limits. Periorbital areas with no swelling, redness, or edema. ENT: Nares patent. No nasal discharge, no septal abnormalities noted. External auditory canals are clear. Oropharynx with no redness, swelling, or masses, exudates, or evidence of obstruction, uvula midline. Mucous membranes moist. Neck: Trachea midline, no thyromegaly or masses palpated, and no cervical lymphadenopathy. Supple, full range of motion without nuchal rigidity, or vertebral point tenderness. No Meningismus. Chest/axilla: Normal chest wall appearance and motion. Nontender with no deformity. No lesions are appreciated. Cardiovascular: Regular rate and rhythm with a normal S1 and S2. No gallops, murmurs, or rubs. Normal PMI, no JVD. No pulse deficits. Respiratory: Lungs have equal breath sounds bilaterally, clear to auscultation and percussion. No rales, rhonchi or wheezes noted. No increased work of breathing, no retractions or nasal flaring. Abdomen/GI: Soft, non-tender, with normal bowel sounds. No distension or tympany. No guarding or rebound. No evidence of tenderness throughout. Back: No spinal tenderness. No costovertebral tenderness. Full range of motion. MS/ Extremity: Pulses equal, no cyanosis. Neurovascular intact. Full, normal range of motion. Neuro: Awake and alert, GCS 15, oriented to person, place, time, and situation. Cranial nerves II-XII grossly intact. Motor strength 5/5 in all extremities. Sensory grossly intact. Cerebellar exam normal. Normal gait. Psych: Awake, alert, with orientation to person, place and time. Behavior, mood, and affect are within normal limits. 13:09 Skin: Pale skin otherwise normal exam.. Vital Signs: 12:32 BP 127 / 58; Pulse 72; Resp 16; Temp 98.1; Pulse Ox 97% on R/A; Weight 80.29 kg; Height iw 5 ft. 2 in. ; 13:00 BP 128 / 58; Pulse 65; Resp 16; Pulse Ox 97% on R/A; cm10 13:30 BP 121 / 50; Pulse 64; Resp 16; Pulse Ox 96% on R/A; cm10 14:00 BP 139 / 62; Pulse 64; Resp 16; Pulse Ox 98% on R/A; cm10 14:30 BP 147 / 62; Pulse 66; Resp 16; Pulse Ox 98% on R/A; cm10 15:00 BP 135 / 56; Pulse 69; Resp 19; Pulse Ox 97% on R/A; cm10 15:30 BP 121 / 62; Pulse 73; Resp 17; Pulse Ox 97% on R/A; cm10 16:00 BP 133 / 51; Pulse 70; Resp 15; Pulse Ox 97% on R/A; cm10 16:30 BP 143 / 63; Pulse 70; Resp 16; Pulse Ox 98% on R/A; cm10 21:31 BP 144 / 68; Pulse 61; Resp 13; Temp 97.2(TE); Pulse Ox 100% on R/A; kd3 12:32 Body Mass Index 32.37 (80.29 kg, 157.48 cm) iw MDM: 12:34 Patient medically screened. sp3 13:09 Data reviewed: vital signs, nurses notes, lab test result(s). ED course: We will repeat sp3 CBC and obtain type and cross for 2 units PRBCs with probable discharge after transfusion.. 14:22 ED course: Hemoglobin is 7.0. Will discharge after transfusion is complete. Physician sp3 documentation is now complete.. 12/14 12:43 Order name: Basic Metabolic Panel; Complete Time: 14:22 sp3 12/14 12:43 Order name: CBC with Diff; Complete Time: 14:22 sp3 12/14 12:43 Order name: PT-INR; Complete Time: 14:22 sp3 12/14 13:00 Order name: Bb Add On em1 12/14 13:31 Order name: ABO/RH no charge; Complete Time: 14:22 EDPA 12/14 15:10 Order name: Type And Screen iw 12/14 15:31 Order name: Packed RBC Leukored EDPA 12/14 12:43 Order name: Cardiac monitoring; Complete Time: 13:36 sp3 12/14 12:43 Order name: IV Saline Lock; Complete Time: 13:07 sp3 12/14 12:43 Order name: Labs collected and sent; Complete Time: 13:07 sp3 12/14 12:43 Order name: O2 Sat Monitoring; Complete Time: 13:07 sp3 Administered Medications: No medications were administered Disposition Summary: 12/14/22 14:23 Discharge Ordered Location: Home sp3 Condition: Stable sp3 Diagnosis - Critical anemia, generalized weakness sp3 Followup: sp3 - With: David Montoya MD - When: 1 - 2 days - Reason: Continuance of care Discharge Instructions: - Discharge Summary Sheet sp3 - Blood Transfusion, Adult sp3 Forms: - Medication Reconciliation Form sp3 - Thank You Letter sp3 - Antibiotic Education sp3 - Prescription Opioid Use sp3 - Patient Portal Instructions sp3 Signatures: Dispatcher [employer] EDMS Anel Shetty, RN RN iw Mari Patel MD MD sp3 Abril Blanco RN RN kd3 Corrections: (The following items were deleted from the chart) 13:12 12:44 TYPE AND SCREEN+BB.LAB.BRZ ordered. EDMS EDMS 15:15 12:44 PACKED RBC LEUKORED+BB.LAB.BRZ ordered. EDMS EDMS 15:15 12:46 ABO/RH typing ordered. EDMS EDMS 15:15 12:46 Antibody Screen ordered. EDMS EDMS 15:15 14:22 ABO/RH typing reviewed. sp3 EDMS 15:15 14:22 Antibody Screen reviewed. sp3 EDMS
[2022-12-14] MEDS ORDERED: NA CHLORIDE 0.9% 500 ML ONE (19:30)
[2022-12-14 22:24] VITALS: BP 144/68; TEMP 97.2; O2SAT 100
== END 2022-12-14 21:46 | disposition home or self-care (01) ==
LOC: ER 12:01
PROC: 30233N1 Transfusion of Nonautologous Red Blood Cells into Peripheral Vein, Percutaneous Approach (ICD-10-PCS; principal; 2022-12-14)
DX: D64.9 Anemia, unspecified (principal); I10 Essential (primary) hypertension; Z88.1 Allergy status to other antibiotic agents; Z88.5 Allergy status to narcotic agent; Z88.6 Allergy status to analgesic agent
CPT/HCPCS: 85025; 80048; 36415; 86900; 86850; 85610; 86901; 86920 ×2; 99284; 36430; P9016 ×2; J7050; J7040

== ENCOUNTER 2024-06-12 10:40 | Emergency (ER) | payer OTHER ==
[2024-06-12 13:31] LABS: Specific Gravity 1.029 (1.005-1.030); Sqamous Epithelial <5 /HPF (None Seen); Urine Bacteria None Seen /HPF (<20); Urine Bilirubin NEGATIVE (Negative); Urine Blood Negative (Negative); Urine Clarity Turbid (Clear); Urine Color Yellow (Yellow); Urine Culture Reflex Order NOT NEEDED; Urine Glucose NEGATIVE (Negative); Urine Ketones NEGATIVE (Negative); Urine Microscopic Reflex YN ORDER UMIC; Urine Mucus Slight /HPF (None Seen); Urine Nitrite NEGATIVE (Negative); Urine Protein TRACE (Negative); Urine RBC <5 /HPF (None Seen); Urine Urobilinogen Normal (Normal); Urine WBC <5 /HPF (<5)
[2024-06-12 15:17] LABS: Absolute Lymphocytes (CBC) 1.6 K/uL (0.7-4.9); Absolute Neutrophil 12.8 K/uL (1.8-8.0); Basophils % 0.3 % (0-1.3); Eosinophils % 0.2 % (0-4.4); Hematocrit 38.1 % (36.0-45.0); Hemoglobin 12.9 g/dL (12.0-15.0); Lymphocytes % 10.1 % (15.3-44.8); MCHC 33.8 g/dL (32.0-36.0); MCV 88.7 fL (80-100); MPV 8.7 fL (7.6-11.3); Monocytes % 6.2 % (3.3-12.3); Neutrophils % 83.2 % (41.7-73.7); Platelets 226 thou/uL (152-406); Red Cell Distribution Width 13.7 % (12.1-15.2)
[2024-06-12 15:34] LABS: Albumin 3.8 g/dL (3.4-5.0); Albumin/Globulin Ratio 0.9 (1.1-1.8); Anion Gap 10.1 mEq/L (5.0-15.0); Bilirubin Total 0.6 mg/dL (0.2-1.0); Globulin 4.2 g/dL (2.3-3.5); Potassium 4.1 mEq/L (3.5-5.1)
--- NOTE | 2024-06-12 16:04 | RAD REPORT ---
EXAMINATION: CT Abdomen Pelvis Wo Contrast CLINICAL INDICATION: Female, 89 years old. ABD PAIN TECHNIQUE: CT abdomen and pelvis was performed, without IV contrast, as per department protocol. Axia l, sagittal and coronal reconstructions were obtained. One or more of the following dose reduction techniques were used: Automated exposure control, adjustment of the mA and kV according to the patien t size, and iterative reconstruction. Unless otherwise specified, incidental findings do not require dedicated imaging follow-up. COMPARISON: 04/06/2020 FINDINGS: The lack of intravenous contrast limits the sensitivity of this exam for evaluation of solid visceral organs, vascular structures, and retroperitoneum. LOWER CHEST: The visualized lung bases are clear. LIVER: Normal in size and contour. No focal lesion. BILIARY SYSTEM: Status post cholecystectomy. SPLEEN: Normal size. No focal lesion. PANCREAS: No mass, ductal dilation, or zac-pancreatic fluid. ADRENALS: Normal; no mass. KIDNEYS AND URETERS: Normal size and contour. No hydronephrosis. URINARY BLADDER: Normal contour. GASTROINTESTINAL TRACT: Sigmoid diverticulosis with focal inflammatory changes along the inferior mid sigmoid wall, with wall thickening and adjacent fat stranding. No evidence of bowel obstruction, significant free fluid, free air or abscess. APPENDIX: Normal appendix. LYMPH NODES: No lymphadenopathy. MUSCULOSKELETAL: No acute or suspicious osseous abnormality. 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 Calcified small fibroids within the uterus. IMPRESSION: Findings of acute mid sigmoid diverticulitis. No evidence of complications. Other stable incidental findings as above. THIS REPORT CONTAINS FINDINGS THAT MAY BE CRITICAL TO PATIENT CARE. The findings were verbally commun icated via telephone to Nikunj Beltrán MD on 06/12/2024 4:00 PM.
[2024-06-12] MEDS ORDERED: CIPROFLOXACIN HCL 500 MG TAB ONE (17:31)
[2024-06-12] MEDS ORDERED: TRAMADOL HCL 50 MG TAB ONE (17:31)
[2024-06-12] MEDS ORDERED: metroNIDAZOLE 500 MG TABLET ONE (17:31)
--- NOTE | 2024-06-12 18:01 | ER ---
Nurse's Notes [facility] Name: Diandra Shepard Age: 89 yrs Sex: Female : 1935 Arrival Date: 06/12/2024 Time: 10:40 Bed 15 Private MD: Diagnosis: Diverticulitis of large intestine without perforation or abscess without bleeding;Abdominal pain, unspecified Presentation: 06/12 11:14 Chief complaint: Patient states: she is having left flank/lower back pain that radiates ap3 into her left lower abdomen. patient reports the pain started a couple days ago. patient also reports urinary difficulty but no pain with urination. Coronavirus screen: At this time, the client does not indicate any symptoms associated with coronavirus-19. Ebola Screen: No symptoms or risks identified at this time. Initial Sepsis Screen: Does the patient meet any 2 criteria? No. Patient's initial sepsis screen is negative. Does the patient have a suspected source of infection? No. Patient's initial sepsis screen is negative. Risk Assessment: Do you want to hurt yourself or someone else? Patient reports no desire to harm self or others. Onset of symptoms was June 09, 2024. 11:14 Method Of Arrival: Wheelchair ap3 11:14 Acuity: VANESSA 3 ap3 Triage Assessment: 11:18 General: Appears in no apparent distress. Behavior is calm, cooperative, appropriate ap3 for age. Pain: Complains of pain in left low back Pain radiates to left lower quadrant Pain began gradually, 2-3 days ago. Neuro: Level of Consciousness is awake, alert, obeys commands, Oriented to person, place, time, situation, Appropriate for age. Cardiovascular: Patient's skin is warm and dry. Respiratory: Airway is patent Respiratory effort is even, unlabored, Respiratory pattern is regular, symmetrical. : Reports pain in left flank(s). Historical: - Allergies: 11:16 Tylenol; ap3 - Home Meds: 11:16 Lisinopril Oral [Active]; ap3 - PMHx: 11:16 Hyperlipidemia; Hypertension; ap3 - Immunization history:: Client reports receiving the 2nd dose of the Covid vaccine. - Infectious Disease History:: Denies. - Social history:: Smoking status: Patient denies any tobacco usage or history of. Screenin:19 Abuse screen: Denies threats or abuse. Nutritional screening: No deficits noted. ap3 Tuberculosis screening: No symptoms or risk factors identified. 17:00 [facility] ED Fall Risk Assessment (Adult) History of falling in the last 3 months, db including since admission No falls in past 3 months (0 pts) Confusion or Disorientation No (0 pts) Intoxicated or Sedated No (0 pts) Impaired Gait Yes (1 pt) Mobility Assist Device Used Yes (1 pt) Altered Elimination No (0 pt) Score/Fall Risk Level 0 - 2 = Low Risk Oriented to surroundings, Maintained a safe environment. Assessment: 16:30 Reassessment: Patient appears in no apparent distress at this time. Patient and/or db family updated on plan of care and expected duration. Pain level reassessed. Patient is alert, oriented x 3, equal unlabored respirations, skin warm/dry/pink. Neuro: Level of Consciousness is awake, alert, obeys commands, Oriented to person, place, time, situation. Respiratory: Airway is patent Respiratory effort is even, unlabored, Respiratory pattern is regular, symmetrical. 17:55 Reassessment: Patient appears in no apparent distress at this time. Patient and/or db family updated on plan of care and expected duration. Pain level reassessed. Patient is alert, oriented x 3, equal unlabored respirations, skin warm/dry/pink. PT AMBULATORY TO RESTROOM. 18:08 Reassessment: Patient appears in no apparent distress at this time. Patient and/or db family updated on plan of care and expected duration. Pain level reassessed. Patient is alert, oriented x 3, equal unlabored respirations, skin warm/dry/pink. Vital Signs: 11:14 BP 144 / 65; Pulse 62; Resp 18; Temp 98.4(TE); Pulse Ox 100% ; Weight 75.75 kg; Height ap3 5 ft. 0 in. ; 16:30 BP 147 / 67; Pulse 78; Resp 18; Pulse Ox 97% ; db 17:30 BP 165 / 77; Pulse 77; Resp 16; Pulse Ox 97% on R/A; db 11:14 Body Mass Index 32.61 (75.75 kg, 152.4 cm) ap3 ED Course: 10:45 Patient arrived in ED. ra3 11:02 Nikunj Beltrán MD is Attending Physician. bo1 11:16 Triage completed. ap3 11:19 Arm band placed on left wrist. ap3 13:13 Urinalysis w/ reflexes Sent. ld1 13:30 Urinalysis w/ reflexes Sent. ld1 14:36 Clarisa Braden, RN is Primary Nurse. db 14:51 CT Abd/Pelvis - Without Contrast In Process Unspecified. EDMS 15:05 Initial lab(s) drawn, by me, sent to lab. Inserted saline lock: 22 gauge in right db antecubital area, using aseptic technique. Blood collected. Flushed with 10 mL NS. 18:08 Patient has correct armband on for positive identification. Bed in low position. Call db light in reach. Side rails up X 1. Provided Education on: PRESCRIPTIONS. Pulse ox on. NIBP on. Warm blanket given. Pillow given. 18:08 No provider procedures requiring assistance completed. IV discontinued, intact, db bleeding controlled, No redness/swelling at site. Administered Medications: 17:35 Drug: traMADol PO 50 mg PO once Route: PO; db 18:10 Follow up: Response: No adverse reaction db 17:36 Drug: Ciprofloxacin PO 500 mg PO once Route: PO; db 18:10 Follow up: Response: No adverse reaction db 17:36 Drug: metroNIDAZOLE PO 500 mg PO once Route: PO; db 18:10 Follow up: Response: No adverse reaction db Medication: 18:08 VIS not applicable for this client. db Outcome: 18:01 Discharge ordered by . bo1 18:08 Discharged to home via wheelchair, with family, db 18:08 Condition: stable 18:08 Discharge instructions given to patient, family, Instructed on discharge instructions, follow up and referral plans. Prescriptions given X 3, 18:10 Patient left the ED. db Signatures: Dispatcher [employer] EDMS Madhavi Hobbs RN RN ap3 Nubia Riddle RN RN ld1 Clarisa Braden, RN RN Bijal Blackburn ra3 Nikunj Beltrán MD MD bo1 Corrections: (The following items were deleted from the chart) 11:18 11:16 Allergies: Codeine; ap3 ap3 11:18 11:16 Allergies: Levaquin; ap3 ap3
--- NOTE | 2024-06-12 18:01 | EDPHYS ---
Physician Documentation [facility] Name: Diandra Shepard Age: 89 yrs Sex: Female : 1935 Arrival Date: 06/12/2024 Time: 10:40 Bed 15 Private MD: ED Physician Nikunj Beltrán HPI: 06/12 14:33 This 89 yrs old Female presents to ER via Wheelchair with complaints of Back bo1 Pain. 14:33 The patient presents with pain that is acute, with no known mechanism of injury, Pt bo1 denies trauma or fall. The symptoms are located in the low back. Onset: The symptoms/episode began/occurred 8 day(s) ago. The pain does not radiate. Associated signs and symptoms: Pertinent positives: abdominal pain, Now with pain the abd for 2 days. The problem was sustained from unknown cause. No prior hx or cause. 17:55 Severity of symptoms: At their worst the symptoms were moderate. The patient has not bo1 experienced similar symptoms in the past. Historical: - Allergies: 11:16 Tylenol; ap3 - Home Meds: 11:16 Lisinopril Oral [Active]; ap3 - PMHx: 11:16 Hyperlipidemia; Hypertension; ap3 - Immunization history:: Client reports receiving the 2nd dose of the Covid vaccine. - Infectious Disease History:: Denies. - Social history:: Smoking status: Patient denies any tobacco usage or history of. ROS: 14:35 Constitutional: Negative for fever, chills, and weight loss bo1 14:35 Constitutional: Negative for body aches, fever, weight loss, 14:35 Neck: Negative for pain with movement, pain at rest, 14:35 Cardiovascular: Negative for chest pain, palpitations, 14:35 Respiratory: Negative for cough, shortness of breath, 14:35 Abdomen/GI: Positive for abdominal pain, nausea, Negative for diarrhea, 14:35 : Negative for urinary symptoms, 14:35 MS/extremity: Negative for acute changes, pain, swelling, 14:35 Skin: Negative for rash, 14:35 All other systems are negative, Exam: 17:55 Constitutional: This is a well developed, well nourished patient who is awake, alert, bo1 and in no acute distress. 17:55 Constitutional: The patient appears in no acute distress, alert, awake, comfortable, non-toxic, obese, 17:55 Eyes: Sclera: no appreciated abnormality, no acute changes, 17:55 Neck: External neck: is normal, no acute changes, 17:55 Cardiovascular: Rate: normal, Rhythm: regular, Pulses: no pulse deficits are appreciated, 17:55 Respiratory: the patient does not display signs of respiratory distress, Respirations: normal, Breath sounds: are clear throughout, 17:55 Abdomen/GI: Inspection: obese Palpation: soft, mild abdominal tenderness, \T\ the lower abd, 17:55 Back: Exam negative for acute changes, 17:55 Musculoskeletal/extremity: DVT Exam: no pain, no swelling, no tenderness, 17:55 Skin: no rash present. Vital Signs: 11:14 BP 144 / 65; Pulse 62; Resp 18; Temp 98.4(TE); Pulse Ox 100% ; Weight 75.75 kg; Height ap3 5 ft. 0 in. ; 16:30 BP 147 / 67; Pulse 78; Resp 18; Pulse Ox 97% ; db 17:30 BP 165 / 77; Pulse 77; Resp 16; Pulse Ox 97% on R/A; db 11:14 Body Mass Index 32.61 (75.75 kg, 152.4 cm) ap3 MDM: 11:03 Medical Screening Exam initiated bo1 17:58 Differential diagnosis: Diverticular disease. Data reviewed: vital signs, lab test bo1 result(s), CBC, urinalysis, radiologic studies, CT scan. ED course: Pt with spouse is ok with OP trial of PO abx and med for pain. Sigmoid diverticulitis will be managed as OP. 06/12 11:03 Order name: Urinalysis w/ reflexes; Complete Time: 13:33 06/12 14:36 Order name: CBC with Diff; Complete Time: 16:07 bo06/12 14:36 Order name: CMP; Complete Time: 16:07 bo06/12 14:36 Order name: Lipase; Complete Time: 16:07 06/12 14:36 Order name: CT Abd/Pelvis - Without Contrast; Complete Time: 16:07 bo06/12 14:36 Order name: IV Saline Lock; Complete Time: 15:35 06/12 14:36 Order name: Labs collected and sent; Complete Time: 15:35 bo1 Administered Medications: 17:35 Drug: traMADol PO 50 mg PO once Route: PO; db 18:10 Follow up: Response: No adverse reaction db 17:36 Drug: Ciprofloxacin PO 500 mg PO once Route: PO; db 18:10 Follow up: Response: No adverse reaction db 17:36 Drug: metroNIDAZOLE PO 500 mg PO once Route: PO; db 18:10 Follow up: Response: No adverse reaction db Disposition Summary: 06/12/24 18:01 Discharge Ordered Notes: Location: Home bo1 Problem: new bo1 Symptoms: have improved bo1 Condition: Stable bo1 Diagnosis - Diverticulitis of large intestine without perforation or abscess without bleeding bo1 - Abdominal pain, unspecified bo1 Followup: bo1 - With: Private Physician - When: Upon discharge from the Emergency Department - Reason: Recheck today's complaints, Continuance of care Discharge Instructions: - Discharge Summary Sheet bo1 - Abdominal Pain, Adult bo1 - Diverticulitis bo1 Forms: - Medication Reconciliation Form bo1 - Antibiotic Education bo1 - Prescription Opioid Use bo1 - Patient Portal Instructions bo1 - Leadership Thank You Letter bo1 Prescriptions: - Cipro 500 mg Oral Tablet - take 1 tablet ORAL route every 12 hours for 10 days; 20 tablet; Refills: 0, bo1 Product Selection Permitted - Flagyl 500 mg Oral tablet - take 1 tablet ORAL route every 12 hours for 10 days; 20 tablet; Refills: 0, bo1 Product Selection Permitted - Tramadol 50 mg Oral Tablet - take 1 tablet ORAL route every 8 hours as needed; 12 tablet; Refills: 0, bo1 Product Selection Permitted Signatures: Dispatcher [employer] EDMadhavi Boudreaux RN RN ap3 Clarisa Braden RN RN db Nikunj Beltrán MD MD bo1 Corrections: (The following items were deleted from the chart) 11:03 11:03 Urinalysis+U.LAB.BRZ ordered. EDMS EDMS 11:18 11:16 Allergies: Codeine; ap3 ap3 11:18 11:16 Allergies: Levaquin; ap3 ap3 14:37 14:37 CBC+H.LAB.BRZ ordered. EDMS EDMS 14:37 14:37 COMPREHENSIVE METABOLIC PANEL+C.LAB.BRZ ordered. EDMS EDMS 14:37 14:37 LIPASE+C.LAB.BRZ ordered. EDMS EDMS
[2024-06-12 21:03] VITALS: TEMP 98.4
[2024-06-12 21:05] VITALS: O2SAT 97
[2024-06-12 21:06] VITALS: BP 165/77
== END 2024-06-12 18:10 | disposition home or self-care (01) ==
LOC: ER 10:40
DX: K57.32 Diverticulitis of large intestine without perforation or abscess without bleeding (principal); I10 Essential (primary) hypertension
CPT/HCPCS: 36415; 74176; 80053; 81001; 83690; 85025; 99284

== ENCOUNTER 2025-02-26 11:29 | Inpatient (IN) | payer OTHER ==
[2025-02-23 11:16] LABS: Urine Culture Reflex Order REFLEXED; Urine Microscopic Reflex YN NO UMIC
[2025-02-23 11:17] LABS: Absolute Lymphocytes (CBC) 2.0 K/uL (0.7-4.9); Hematocrit 38.2 % (36.0-45.0); Hemoglobin 12.7 g/dL (12.0-15.0); MCH 29.7 pg (27.0-35.0); MCHC 33.3 g/dL (32.0-36.0); MCV 89.2 fL (80-100); MPV 9.8 fL (7.6-11.3); Nucleated RBC Absolute Count 0.0 (0-0); Nucleated Red Blood Cells % 0.0 % (0-0); RBC Red Blood Cell Count 4.29 M/uL (3.86-4.86); White Blood Count 6.80 thou/uL (4.3-10.9)
[2025-02-23 11:31] LABS: Anion Gap 8.4 mEq/L (5.0-15.0); BUN Blood Urea Nitrogen 19.0 mg/dL (7-18); Glucose Level 100.0 mg/dL (74-106); Potassium 4.4 mEq/L (3.5-5.1)
[2025-02-23 11:32] LABS: PT Prothrombin Time 16.7 SECONDS (10-13.0); PTT, Activated Partial Thromb 38.6 SECONDS (27.2-37.4); Protime INR 1.5
[2025-02-26] MEDS: Ringers Lactate 0 ML IV ONE (11:55)
[2025-02-26] MEDS: NA CHLORIDE 0.9% 1,000 ML ONE ×2 (12:24→16:15)
[2025-02-26] MEDS: NA CHLORIDE 0.9% 100 ML ONE (13:09)
[2025-02-26] MEDS: CEFAZOLIN SODIUM 1 GM/VIAL ONE (13:10)
[2025-02-26] MEDS: LIDOCAINE HCL/EPINEPHRINE 20 ML MDV ONE (13:10)
[2025-02-26] MEDS ORDERED: FENTANYL CITR 100 MCG/2 ML ONE (13:26)
[2025-02-26] MEDS ORDERED: LIDOCAINE 2% MPF 5 ML VIAL ONE (13:26)
[2025-02-26] MEDS ORDERED: ONDANSETRON 4 MG/2 ML VIAL ONE (13:26)
[2025-02-26] MEDS ORDERED: ROCURONIUM 50 MG/5 ML VIAL IV ONE (13:27)
[2025-02-26] MEDS: CEFAZOLIN SODIUM 2 GM/VIAL ONE (13:46)
[2025-02-26] MEDS: VASOPRESSIN 20 UNIT/ML VIAL ONE ×2 (14:30→14:53)
[2025-02-26] MEDS ORDERED: MORPHINE 2 MG/ML SYR IV PRN (16:41)
--- NOTE | 2025-02-26 16:48 | P.BOP ---
Preoperative diagnosis: stage 4 uterovainal prolapse, YASMANI Postoperative diagnosis: same anterior enteocele, distal post enterocele, perin eocele Primary procedure: Lefort's colpocleisis, post wall repair and perineocele repair, TVT-O cysto Tank Cleaning Supervisor: Olivia Young Estimated blood loss: 75 Specimen: none Findings: +3/+10/+8/6/ mod/ 12/-2/-2/+5, cysto patent UOs Anesthesia: General Complications: None Drain(s): Urinary catheter Implants: TVT-O Transferred to: Recovery Room Condition: Good
[2025-02-26] MEDS: MORPHINE 4 MG/ML SYR ONE (17:07)
[2025-02-26 17:58] VITALS: O2SAT 97
[2025-02-26] MEDS: METFORMIN ER 500 MG TAB PO SCH (18:30)
[2025-02-26 20:10] VITALS: BMI 33.6
[2025-02-26] MEDS: FLUTICASONE SALMETEROL IH SCH (21:00)
[2025-02-26] MEDS: Ringers Lactate 1,000 ML IV SCH (21:20)
[2025-02-26] MEDS: CEFAZOLIN 1 GM in NA CHLORIDE 0.9% 50 ML IVPB SCH (21:22)
[2025-02-26] MEDS: ATORVASTATIN 10 MG TAB PO SCH (21:25)
[2025-02-26] MEDS: METOPROLOL TAR 25 MG TAB PO SCH (21:27)
--- NOTE | 2025-02-27 04:40 | OP ---
Date of Procedure: 02/26/2025 Surgeon: Tia Roque MD Jig Worker: Olivia Hairston. Preoperative Diagnoses: Stage IV uterovaginal prolapse, stress urinary incontinence. Postoperative Diagnoses: Stage IV uterovaginal prolapse, stress urinary incontinence, anterior enter ocele, distal posterior enterocele, and perineocele. Procedures Performed: 1. [place] partial colpocleisis. 2. Posterior wall repair. 3. Perineocele repair. 4. Transobturator mid urethral sling (TVT-O) cystoscopy. Estimated Blood Loss: 74. Specimens: No. Complications: No Drains: Santo catheter. Findings: Pop-Q +3, +10, +8, 6, moderate 12, -2, -2 +5. Cystoscopy showed both patent ureters, vagi nal and 3 cm. Anesthesia: General. Implants: TVT-O. Condition: Transferred to the recovery room in stable condition. Indications: The patient is an 89-year-old female who presented with significant symptomatic uterova ginal prolapse with voiding difficulties and stress urinary incontinence. She was evaluated with cys toscopy, urodynamics, and after clinical exam offered pessary surgery involving reconstruction and va ginal closure. The patient was very clear about there not being any prospect of vaginal sexual funct ion and was comfortable with vaginal closure procedure as this is safe, has least amount of graft mat erial with highest degree of success in the assisted. The patient was counseled about the permanenc e of the procedure using an wing commander and she understood everything and consented. Her uterus was evaluated and did not have any pathology. She was explained that a channel would be c reated on either side for vaginal drainage of the uterine lining or cervical contents present. Description Of Procedure: After medical clearance was obtained and we were able to do for 36 hours, she was brought into the preop. She was re-consented in the preoperative area with the celeste ramos around. All questions and answers were done to their satisfaction using an wing commander. Then, she was taken back to the OR, placed in supine fashion on the operating table and Ancef was given. G eneral anesthesia was given, and she was placed in dorsal lithotomy position using Jose stirrups. L ower abdomen, medial thighs as well as vagina and perineum were prepped and draped in a sterile fashi on using Betadine. Santo was used to drain the bladder and retracted superiorly after clamping it. The vaginal exam was performed and Pop-Q is as dictated above was very apparent that the anterior com partment defect was much larger than the posterior compartment. Then markings were made in a trapezo id fashion in the anterior and posterior tello ensuring that the distal portion of the vaginal incisi on would stop at least 3 cm above the hymenal ring. Once the area below the UVJ that is the target f or the horizontal plane in the distal anterior wall was marked from [id number] marking the fornices . Then around the cervix posterior incision was also marked out and both channels were made sure patricia t they were symmetric and that they would invaginate without any problems. Once all this was done as markings into the distal wall, then I was able to appreciate an anterior en terocele with the transverse defect in the proximal anterior wall just below the cervix and the poste rior wall, there was a significantly large defect on one side, especially on the left and there was a n enterocele present in the distal posterior wall as well. Perineocele was very evident with ___ that was significantly widened. On rectovaginal exam it was very apparent. The vaginal epithelium was infiltrated with dilute vasopressin 40 units mixed in 100 mL of normal jacob ine and injected at prior dissection along the marked trapezoid tello. Incision made with a 15 blade to michele out the epithelium and the epithelium was excised from the underlying connective tissue in a gentle fashion keeping the connective tissue intact. Once all the anterior wall was complete, poste rior wall was dissected and epithelium deepithelialized. Then a transverse a channel was created in a transverse fashion to bring the epithelial edges together from the left end of the transverse chann el to the right hand at the proximal most part of the vagina. Then, the right side channel was creat ed with a continuous running 0 Vicryl suture for all these. Then, the left sided channel was also cr eated with 0 Vicryl in a continuous running fashion. Anterior and posterior tello were brought together with 3 layers of sutures using 2-0 Vicryl in a con tinuous running fashion in each of the planes. Once I came out to the distal portion of the vaginal incisions, these were then brought together after raising the flaps with the buried [id number] s utures. The defect was closed in the anterior-posterior tello in transverse fashion without putting excessive tension on the urethra. Posterior wall repair and enterocele repair, a telly-shaped incision was made in the distal posteri or wall towards the hymen. After infiltrating with dilute vasopressin, the epithelium was taken down , fascia was dissected up, enterocele was found and this was plicated from side to side and tucked in using a 3-0 Vicryl suture. Then, the fascia was identified on both sides. Perineocele repaired and good perineal incision was made in a V-shaped fashion making sure that this dissection was carried down to the level of the sphincter. This was did not appear to be disrupted h ere, but the perineum was completely . The deep transverse perineal muscles on each side we re identified and tried to bring these together in a continuous running fashion in 2 layers. Once th is was done, a continuous running suture from the fascia of the posterior wall was brought down to at tached to the newly reconstructed perineal body. The vaginal incision was closed with a continuous running horizontal mattress 2-0 Vicryl, and then th e perineum was closed with the help of 2-0 and 3-0 Vicryl. Mid urethral sling: The mid urethra was picked up with 2 Allis was on either sides injected with 10 mL of dilute vasopressin and incision made in the midline and dissecting towards the ipsilateral obtu rator space horizontal and vertical lines, the track was created. Once the obturator me mbrane was perforated were expanded. Similar dissection performed on the left side as wel l. There was some bleeding when the spike was fashioned on the left side, but no remarkable __ right. Once pressure was applied, the groin bleeding was completely resolved. The vaginal epithe lium after irrigating the mesh was closed with the help of a continuous running horizontal 3-0 Vicryl sutures and then closed. Rectal exam was performed and negative. Santo was removed and cystoscopy was performed. There were patent ureters and no evidence of any trauma to the bladder at the level o f the sling or the fixation. She was recovered from anesthesia. Instrument, needle, and sponge coun ts x3 were correct at the end of the case. The patient was recovered from this and she was taken to PACU in stable condition. Her family was deep briefed about her procedure. She will stay overnight for a voiding trial and discharged home tomorrow. She will restart her . ANDRESSA/SOCRATES Voice ID: [id number] Report ID: [id number]
[2025-02-27] MEDS: AMLODIPINE 5 MG TAB PO SCH (08:30)
[2025-02-27] MEDS: HYDROXYZINE HCL 10 MG/5 ML SYRUP UD PO SCH (08:32)
[2025-02-27] MEDS: ACETAMINOPHEN 500 MG TAB PO PRN (08:35)
[2025-02-27] MEDS ORDERED: RIVAROXABAN 10 MG TABLET PO SCH (09:00)
[2025-02-27 12:53] VITALS: BP 118/58; TEMP 98.6
[2025-02-27] MEDS ORDERED: ESTRADIOL APPL TOP SCH (17:00)
== END 2025-02-27 12:29 | disposition home or self-care (01) | DRG 748 ==
LOC: OR 11:29 → 2ND 16:41
PROVIDERS: ADMIT Obstetrics & Gynecology; ATTEND Obstetrics & Gynecology
PROC: 0UQG8ZZ Repair Vagina, Via Natural or Artificial Opening Endoscopic (ICD-10-PCS; 2025-02-26)
PROC: 0KQM0ZZ Repair Perineum Muscle, Open Approach (ICD-10-PCS; 2025-02-26)
PROC: 0TSD0ZZ Reposition Urethra, Open Approach (ICD-10-PCS; principal; 2025-02-26 13:45)
PROC: 0T9B70Z Drainage of Bladder with Drainage Device, Via Natural or Artificial Opening (ICD-10-PCS; 2025-02-27)
DX: N81.2 Incomplete uterovaginal prolapse (principal); N39.3 Stress incontinence (female) (male); N81.81 Perineocele
CPT/HCPCS: 36415; 80048; 81003; 82947; 85025; 85610; 85730; 86850; 86900; 86901; 87086; 87088; 93005; 94010; C1771; J0690; J2003; J2405; J2704; J3010; J7030; J7120